=== PATIENT | male | born 1995 | race Two or more races ===

== ENCOUNTER 2023-05-25 04:49 | Emergency (ER) | payer MEDICAID ==
[~2023-05-25] VITALS: Ht 177.8 cm; Wt 81.8 kg
[2023-05-25 07:00] LABS: Basophils # (auto) 0.1 10 ^3/uL (0-0.2); Basophils % (auto) 1.1 % (0.0-2.0); Eosinophils # (auto) 0.3 10 ^3/uL (0-0.8); Eosinophils % (auto) 3.7 % (0.0-7.0); Hematocrit 39.2 % (41.0-53.0); Hemoglobin 13.1 g/dL (13.5-17.5); Lymphocytes # (auto) 2.7 10 ^3/uL (0.4-5.4); Mean Corpuscular Hemoglobin 30.1 pg (28.0-32.0); Mean Corpuscular Hgb Conc. 33.4 g/dL (32.0-36.0); Mean Corpuscular Volume 90.2 fL (80.0-100.0); Monocytes # (auto) 0.5 10 ^3/uL (0-1.3); Monocytes % (auto) 7.4 % (0.0-12.0); Neutrophils # (auto) 3.3 10 ^3/uL (1.6-8.6); Neutrophils % (auto) 48.8 % (37.0-80.0); Red Blood Cells 4.35 10^6/uL (4.5-5.90); Red Cell Distribution Width 13.8 % (11.8-14.3); White Blood Cell 6.8 10^3/uL (4.4-10.8)
[2023-05-25 07:23] LABS: Albumin 3.6 g/dL (3.4-5.0); Calcium 8.6 mg/dL (8.5-10.1); Potassium 4.5 mmol/L (3.5-5.1)
[2023-05-25 07:27] LABS: BUN/Creatinine Ratio 11.1 (10.0-20.0); Bilirubin, Total 0.4 mg/dL (0.2-1.0); Total Protein 7.4 g/dL (6.4-8.2)
[2023-05-25] MEDS ORDERED: IBU600T PO (08:07)
[2023-05-25 09:30] VITALS: BP 108/64
== END 2023-05-25 09:43 | disposition home or self-care (01) ==
LOC: ER 04:49
DX: M79.9 Soft tissue disorder, unspecified (principal)
CPT/HCPCS: 36415; 80053; 83880; 85025; 85379

== ENCOUNTER 2023-10-30 20:36 | Emergency (ER) | payer MEDICAID ==
[~2023-10-30] VITALS: Ht 177.8 cm; Wt 81.2 kg
[~2023-10-30 20:36] MED LIST: IBU600T PO
[2023-10-30 21:03] VITALS: BP 120/53; TEMP 97.7; O2SAT 97
[2023-10-31] MEDS ORDERED: HYDR-4902 PO (00:12)
[2023-10-31] MEDS ORDERED: HYDROcodone-ACET 5/325MG TAB PO ONE (00:15)
[2023-10-31 03:38] VITALS: PULSE 65; RESP 16
== END 2023-10-31 02:45 | disposition home or self-care (01) ==
LOC: ER 20:36
DX: S62.632A Displaced fracture of distal phalanx of right middle finger, initial encounter for closed fracture (principal); Z79.1 Long term (current) use of non-steroidal anti-inflammatories (NSAID); Z79.899 Other long term (current) drug therapy; W23.0XXA Caught, crushed, jammed, or pinched between moving objects, initial encounter; Y93.89 Activity, other specified; Y92.89 Other specified places as the place of occurrence of the external cause; Y99.8 Other external cause status
CPT/HCPCS: 29130; 73130

== ENCOUNTER 2025-01-14 21:55 | Emergency (ER) | payer MEDICAID, OTHER ==
[~2025-01-14] VITALS: Ht 175.3 cm; Wt 79.2 kg
[~2025-01-14 21:55] MED LIST changes: +HYDR-4902 PO
--- NOTE | 2025-01-15 00:11 | DVH ---
INDICATION: LOW BCK PAIN/INJURY COMPARISON: None TECHNIQUE: views of the lumbar spine were obtained. FINDINGS: There is normal alignment of the lumbar spine. The lumbar vertebral bodies are normal in appearance w ith no evidence of fracture. The intervertebral disc spaces are normal. Facet and SI joints appear un remarkable. IMPRESSION: No abnormality demonstrated.
[2025-01-15] MEDS: KETOROLAC TROMETH 60MG/2ML VIAL IM ONE (01:21)
[2025-01-15] MEDS: DexAMETHasone SOD PHOS 10MG/1ML VIAL INJ IM ONE (01:21)
[2025-01-15] MEDS ORDERED: TIZA-142 PO (01:39)
[2025-01-15] MEDS ORDERED: METH4PAK PO (01:39)
--- NOTE | 2025-01-15 01:41 | ED.PDOC ---
Back pain HPI HPI Comments Pt presents to the ER due to lower back pain x 1 1/2 weeks. Pt states he was lifting up bags of concrete and felt a strain in lower back. Pt reports taking Advil for pain last taken at 2100. Pt reports Advil relieves pain for short period of time but comes back. Pt ambulatory with steady gait. Denies numbness, weakness, saddle anesthesia, or loss of bowel or bladder control. Chief Complaint: Back Pain Time Seen by MD: 22:04 Primary Care Provider: n/a Reviewed Notes: Nurses Notes, Medications, Allergies Allergies: Coded Allergies: NO KNOWN ALLERGIES (Unverified , 05/25/23) Home Meds Active Scripts Hydrocodone-Acetaminophen (Hydrocodone Bitartrate/AC 5-325 mg) 1 Tab Tab, 1 TAB PO Q6HPRN PRN, #10 TAB as needed for pain Prov:OSUNAJAZMÍNZeny Q RN EMERGENCY 10/31/23 Ibuprofen Micronized (MOTRIN TABLET) 600 Mg Tb, 600 MG PO TID PRN for 5 Days, #15 TAB *Black box warning-NSAIDS can increase risk of MT & hypertension, GI irritation, ulceration, bleed, perferation. Do not use post cardiac surgery. Use short duration/lowest effective dose. Prov:MARYLIN CAMARGO MD 05/25/23 Information Source: Patient Mode of Arrival: Ambulatory Past Medical History PAST MEDICAL HISTORY: Denies Surgical History: Unknown Family History Family History: Reviewed,noncontributory to illness, Unknown Social History Smoker: Unknown Alcohol: Unknown Drugs: Unknown Lives In: Home Constitutional: denies: chills, diaphoresis, fatigue, fever, malaise, sweats, weakness, others EENTM: denies: blurred vision, double vision, ear bleeding, ear discharge, ear drainage, ear pain, ear ringing, eye pain, eye redness, hearing loss, mouth pain, mouth swelling, nasal discharge, nose bleeding, nose congestion, nose pain, photophobia, tearing, throat pain, throat swelling, voice changes, others Respiratory: denies: cough, hemoptysis, orthopnea, SOB at rest, shortness of breath, SOB with excertion, stridor, wheezing, others Cardiovascular: denies: chest pain, dizzy spells, diaphoresis, Dyspnea on exertion, edema, irregular heart beat, left arm pain, lightheadedness, palpitations, PND, syncope, others Gastrointestinal: denies: abdomen distended, abdominal pain, blood streaked bowels, constipated, diarrhea, dysphagia, difficulty swallowing, hematemesis, melena, nausea, poor appetite, poor fluid intake, rectal bleeding, rectal pain, vomiting, others Genitourinary: denies: burning, dysuria, flank pain, frequency, hematuria, incontinence, penile discharge, penile sore, pain, testicle pain, testicle swel ling, urgency, others Neurological: denies: dizziness, fainting, headache, left sided numbness, left sided weakness, numbness, paresthesia, pre-existing deficit, right sided numbness, right sided weakness, seizure, speech problems, tingling, tremors, weakness, others Musculoskeletal: reports: back pain; denies: gout, joint pain, joint swelling, muscle pain, muscle stiffness, neck pain, others Integumetry: denies: bruises, change in color, change in hair/nails, dryness, laceration, lesions, lumps, rash, wounds, others Allergic/Immunocompromised: denies: Difficulty Healing, Frequent Infections, Hives, Itching, others Hematologic/Lymphatic: denies: anemia, blood clots, easy bleeding, easy bruising, swollen glands, others Endocrine: denies: excessive hunger, excessive sweating, excessive thirst, excessive urination, flushing, intolerance to cold, intolerance to heat, unexplained weight gain, unexplained weight loss, others Psychiatric: denies: anxiety, bipolar disorder, depression, hopeless, panic disorder, schizophrenia, sleepless, suicidal, others Physical Exam General Appearance: No Apparent Distress, Normal HEENT: Pharynx Normal Neck: Full Range of Motion, Non-Tender Respiratory: Lungs Clear, No Respiratory Distress, Normal Breath Sounds Cardiovascular: No Murmur, Normal Peripheral Pulses, Regular Rate/Rhythm Breast Exam: Deferred Gastrointestinal: Non Tender, Soft Genitalia: Deferred Pelvic: Deferred Rectal: Deferred Extremities: Normal capillary refill, Normal inspection, Normal range of motion, Non-tender, No pedal edema Musculoskeletal : Location: Bilateral Extremity Location: Back (Moderate tenderness over L1 through L5 paraspinal muscles left greater than right side. No Noted Crepitus or step-offs L1 through L5. Negative straight leg raise test bilateral. Strength sensory and motion i ntact positive radial pulses distal) Apperance: Normal Neurologic: Alert, central office operator II-XII nml as Tested, No Motor Deficits, Normal Affect, Normal Mood, No Sensory Deficits Cerebellar Function: Normal Reflexes: Normal Skin: Dry, Normal Color, Warm Lymphatic: No Adenopathy Was a procedure done? Was a procedure done?: No Back Pain Differential Dx Differential Diagnosis: Fracture, Musculoskeletal Pain X-Ray, Labs, Meds, VS Vital Signs Date Time Temp Pulse Resp B/P (MAP) Pulse Ox O2 Delivery O2 Flow Rate FiO2 01/14/25 22:32 98.9 74 16 130/51 (77) 95 Current Medications Medications (Trade) Dose Ordered Sig/Dashawn Route Start Time Stop Time Status Last Admin Ketorolac Tromethamine (Toradol Injection) 60 mg ONCE ONCE IM 01/15/25 01:00 01/15/25 01:01 DC 01/15/25 01:21 Dexamethasone Sodium Phosphate (Decadron Injection) 10 mg ONCE ONCE IM 01/15/25 01:00 01/15/25 01:01 DC 01/15/25 01:21 X-Ray, Labs, Meds, VS Comment X-ray lumbar spine shows no acute fractures, subluxation, osseous lesions Patient was given Toradol 60 mg IM and Decadron 10 mg IM he reports pain 2/10 on pain scale states pain is better James discharge at this time and is requesting discharge at this time. Advised to rest discussed alternating between ice and heat. Follow up with your PCP in 1-2 days consider further imaging such as MRI or referral to physical therapy. Take medications as prescribed side effects discussed. ER return precautions given for increasing pain, weakness, numbness, saddle anesthesia, or loss of bowel bladder control. Patient indicates understanding and agrees with discharge plan of care. Time of 1ST Reevaluation: 01:39 Reevaluation 1ST: Improved Patient Education/Counseling: Diagnosis, Treatment, Prognosis, Need For Follow Up Family Education/Counseling: No Family Present Departure 1 Departure Time of Disposition: 01:38 Impression: Primary Impression: Lumbar sprain Qualified Codes: S33.5XXA - Sprain of ligaments of lumbar spine, initial encounter Disposition: HOME / SELF CARE / HOMELESS Condition: Stable e-Prescriptions Tizanidine Hydrochloride (Tizanidine Hcl) 4 Mg Tab 4 MG PO BID PRN for 4 Days, #8 TAB Prov: CHAITANYA ELKINS DEBT AND BUDGET COUNSELOR 01/15/25 Methylprednisolone (Medrol Dosepak) 4 Mg Esa 4 MG PO UD for 6 Days, #21 TAB UAD Prov: CHAITANYA ELKINS 01/15/25 Discharged With: Self Critical Care Note Critical Care Time?: No Stability Stability form required: CHAITANYA Wilson Jan 15, 2025 01:41
[2025-01-15 01:53] VITALS: BP 108/62; PULSE 70; RESP 18; TEMP 98.4; O2SAT 95
== END 2025-01-15 01:57 | disposition home or self-care (01) ==
LOC: ER 21:55
DX: S33.5XXA Sprain of ligaments of lumbar spine, initial encounter (principal); X50.0XXA Overexertion from strenuous movement or load, initial encounter; Y93.89 Activity, other specified; Y92.89 Other specified places as the place of occurrence of the external cause; Y99.8 Other external cause status
CPT/HCPCS: 72100; 96372; 99284; J1100; J1885

== ENCOUNTER 2025-01-20 10:30 | Inpatient (IN) | payer OTHER ==
[~2025-01-20] VITALS: Ht 172.7 cm; Wt 80.0 kg
[~2025-01-20 10:30] MED LIST changes: +METH4PAK PO; +TIZA-142 PO
[2025-01-20 11:00] LABS: Urine Bacteria None Seen /hpf (None Seen)
[2025-01-20 11:07] LABS: Urine Blood TRACE /uL (Negative); Urine Clarity Clear (Clear); Urine Color Yellow (Yellow); Urine Protein, UAD TRACE (Negative); Urine Specific Gravity 1.032 (1.001-1.035); Urine Squamous Epithelial Cell FEW /hpf (<5); Urine Urobilinogen 2 mg/dL (Negative); Urine WBC 1 /HPF (0-3)
[2025-01-20 11:26] VITALS: PULSE 77; RESP 18; O2SAT 97
[2025-01-20 11:31] LABS: Amphetamine Screen, Urine Neg (NEGATIVE); Barbiturate Scree,Urine Neg (NEGATIVE); Benzodiazephine Screen, Urine Neg (NEGATIVE); Cannabinoid Screen, Urine Neg (NEGATIVE); Cocaine Screen, Urine Neg (NEGATIVE); Opiate Scree,Urine Neg (NEGATIVE); Phencyclidine Screen, Urine Neg (NEGATIVE)
[2025-01-20 11:42] LABS: Hematocrit 40.1 % (41.0-53.0); Hemoglobin 13.3 g/dL (13.5-17.5); Mean Corpuscular Hgb Conc. 33.1 g/dL (32.0-36.0); Mean Corpuscular Volume 84.5 fL (80.0-100.0); Platelet Count (auto) 278 10^3/uL (140-450); Red Blood Cells 4.74 10^6/uL (4.5-5.90); Red Cell Distribution Width 13.4 % (11.8-14.3); White Blood Cell 15.6 10^3/uL (4.4-10.8)
[2025-01-20 11:45] LABS: Anion Gap 7 (5-15); Aspartate Aminotransferase 20 U/L (13-40); BUN/Creatinine Ratio 15.7 (10.0-20.0); Blood Urea Nitrogen 13 mg/dL (9-23); Calcium 9.7 mg/dL (8.7-10.4); Carbon Dioxide 30 mmol/L (20-31); Chloride 101 mmol/L (98-107); Glucose 85 mg/dL (74-106); Potassium 3.6 mmol/L (3.5-5.1); Sodium 138 mmol/L (136-145)
[2025-01-20 11:46] LABS: Alanine Aminotransferase 83 U/L (7-40); Albumin 5.1 g/dL (3.2-4.8); Alkaline Phosphatase 751 U/L (46-116); Basophils % (manual) 0 (0.0-2.0); Bilirubin, Total 0.3 mg/dL (0.2-1.0); Blast Cells 0; Metamyelocytes % 0; Myelocytes % 0; Promyelocytes % 0; Total Protein 8.5 g/dL (5.7-8.2)
--- NOTE | 2025-01-20 12:25 | DVH ---
Box Exam: CT CT AB PEL WO CON-NO ORAL OR IV History: B/L flank pain Comparison Study: None available at time of dictation. Technique: Multidetector spiral CT of the abdomen and pelvis was performed from lung bases to pubic s ymphysis. Imaging was performed without intravenous contrast. Coronal and sagittal multiplanar reform ats were obtained from the axial data set by the technologist. Radiation Dose : 1. Abdomen/Pelvis: CTDIvol 6.93 mGy, DLP 342.01 mGy*cm. Findings: Evaluation of vasculature and solid organs is limited due to lack of intravenous contrast use. Lung Bases: Lung bases are clear. Visualized portions of the heart and pericardium are unremarkable. Liver: The liver is normal in size. No focal lesions. Gallbladder and Biliary Tree: The gallbladder is unremarkable. No intrahepatic or extrahepatic bilia ry ductal dilatation. Spleen: Unremarkable Pancreas: Pancreas appears slightly enlarged. There is retroperitoneal fat stranding. Adrenal Glands: Unremarkable Kidneys: Kidneys are unremarkable without calculi or hydronephrosis. GI tract: The stomach is grossly normal in appearance. No evidence of small bowel wall thickening or abnormal dilatation to suggest bowel obstruction. The colon is unremarkable. The appendix is not visu alized, however no inflammatory changes in the right lower quadrant to suggest acute appendicitis. Peritoneum/mesentery/retroperitoneum. No evidence of free intraperitoneal air. No ascites. Lymph nodes: Increased number of retroperitoneal lymph nodes which are not enlarged. Abdominal Wall: Unremarkable. Vasculature: The visualized abdominal aorta is normal in size and caliber. Evaluation of abdominal a nd pelvic vessels is limited due to lack of intravenous contrast. Urinary Bladder: Grossly unremarkable for degree of distention. Pelvic Organs: Unremarkable Musculoskeletal: Innumerable lytic lesions throughout the spine. Innumerable sclerotic lesions in the bony pelvis. No acute fracture. IMPRESSION: 1. Pancreas appears somewhat enlarged and there is retroperitoneal fat stranding. Acute pancreatitis should be considered in the appropriate clinical setting. Correlation with laboratory values recomme nded. 2. Innumerable lytic and sclerotic lesions throughout the lumbar spine and the bony pelvis, concernin g for metastatic disease. If there is no known cancer history, CT of the chest, abdomen and pelvis wi th intravenous and oral contrast is recommended for further evaluation.
--- NOTE | 2025-01-20 12:40 | ED.PDOC ---
Back pain HPI HPI Comments HPI: Poor Historian. HPI: 29-year-old male presents with a chief complaint of back pain. Patient states that his pain is localized to his lower back region (lumbar) and states that his pain hurts to the point where he bends forward and hurts to stand up. Patient states that he has been lifting heavy sandbags at home and believes that is how he injured his back. Patient also is reporting that it is difficult for him to urinate and has some discomfort to his genitalia. Patient reports taking Advil for the pain with minimal relief. Past Medical History: DENIES Past Surgical History: APPENDECTOMY Social History: DENIES Medications: ADVIL FOR PAIN Allergies: NKDA REVIEW OF SYSTEMS: CONSTITUTIONAL: Denies acute: fever, diaphoresis, chills, generalized weakness. HEAD: Denies acute: headache, photophobia Eyes: Denies acute: Double vision, vision loss, eye pain, eye discharge. EARS: Denies acute: tinnitus, hearing loss, ear discharge, ear pain, THROAT: Denies acute: sore throat, swelling, difficulty swallowing , pain with swallowing, change in voice. NECK: Denies acute: neck pain, neck swelling, stiff neck. HEART: Denies acute : chest pain, palpitations, LUNGS: Denies acute: SOB, wheezing, cough, hemoptysis ABDOMEN: Denies acute: abdominal pain, Nausea, Vomiting, diarrhea, melena , hematemesis, hematochezia SKIN: Denies acute: rash, redness, lesions, itchiness. EXTREMITIES: Denies acute: calf pain, weakness, denies pain in extremity. Neuro: Denies acute: focal neurological deficit, motor or sensory focal neurological deficit, tremors, seizure like activity, confusion, dizziness, change in mental status, loss of bowel or bladder function : Denies acute: dysuria, hematuria, flank pain, increase in urinary frequency. PSYCH: Denies acute: hallucination, suicidal ideation, homicidal ideation. PHYSICAL EXAM: General: no acute distress, awake and alert. Head: normocephalic, atraumatic. Neck: supple, trachea is midline, no swelling. Throat: Normal phonation. Eyes:, no erythema, no purulent discharge, no proptosis, no icterus. Heart: regular rate, regular rhythm, no significant murmur appreciated. Lungs: no apparent respiratory distress, Able to speak in full sentences. No wheezing, no rhonchi, no crackles. No stridors Clear to auscultation bilaterally. Abdomen: non tender to palpation, non distended, soft, no guarding, no rebound, + bowel sounds. Neuro: Awake, Alert, oriented to name, self, situation, follows commands GCS=15. Speech is normal. Skin: no petechia, no purpura, no cyanosis, non-pale, not jaundice. Lower extremities: --no - Pitting edema no deformity, no focal swelling, no calf TTP. Makes eye contact. moves all four extremities. Patient is able to raise bilateral lower extremity against resistance and hold it. Evaluation of the area of pain. Patient points to his lumbosacral region radiating to bilateral lumbosacral iliac crest region. No flank pain. Face: no apparent facial droop. No CVA tenderness to percussion bilaterally. Ambulating in the ED independently. ED COURSE: Chief Complaint: Flank Pain Time Seen by MD: 12:15 Primary Care Provider: n/a Reviewed Notes: Nurses Notes, Medications, Allergies Allergies: Coded Allergies: NO KNOWN ALLERGIES (Unverified , 05/25/23) Home Meds Active Scripts Methylprednisolone (Medrol Dosepak) 4 Mg Eas, 4 MG PO UD for 6 Days, #21 TAB UAD Prov:CHAITANYA ELKINS TOBACCO ROLLER 01/15/25 Hydrocodone-Acetaminophen (Hydrocodone Bitartrate/AC 5-325 mg) 1 Tab Tab, 1 TAB PO Q6HPRN PRN, #10 TAB as needed for pain Prov:NAHUM OSUNA Q POWDER WORKER 10/31/23 Ibuprofen Micronized (MOTRIN TABLET) 600 Mg Tb, 600 MG PO TID PRN for 5 Days, #15 TAB *Black box warning-NSAIDS can increase risk of LA & hypertension, GI irritation, ulceration, bleed, perferation. Do not use post cardiac surgery. Use short duration/lowest effective dose. Prov:MARYLIN CAMARGO MD 05/25/23 Discontinued Scripts Tizanidine Hydrochloride (Tizanidine Hcl) 4 Mg Tab, 4 MG PO BID PRN for 4 Days, #8 TAB Prov:CHAITANYA ELKINS TOBACCO ROLLER 01/15/25 Information Source: Patient Mode of Arrival: Ambulatory Past Medical History PAST MEDICAL HISTORY: Denies Surgical History: Appendectomy Family History Family History: Reviewed,noncontributory to illness, Unknown Social History Smoker: Non-Smoker Alcohol: Denies ETOH Use Drugs: Denies Drug Use Lives In: Home Was a procedure done? Was a procedure done?: No Back Pain Differential Dx Differential Diagnosis: Other (DDX included but not limited to Cauda Equina syndrome, lumbar radiculopathy, arthritis, disk herniation, sciatica, muscle strain, epidural abscess, transverse myelitis. Cord compression, spinal foraminal stenosis, spinal fractures, spondylosis, central canal stenosis, trauma, muscle sprain/strain, aneurysm/dissection, kidney stones, shingles, arthritis, Guillan Hartman, neoplasm.) X-Ray, Labs, Meds, VS Vital Signs Date Time Temp Pulse Resp B/P (MAP) Pulse Ox O2 Delivery O2 Flow Rate FiO2 01/20/25 18:02 98.1 81 20 93/50 (64) 97 98.1 01/20/25 15:52 97.6 64 20 118/67 (84) 98 97.6 01/20/25 15:03 79 17 98 Room Air 01/20/25 15:03 98.2 79 17 108/60 (76) 98 98.2 01/20/25 13:25 78 16 127/67 (87) 99 01/20/25 11:26 77 18 97 Room Air* 0 21 01/20/25 11:25 97.4 77 18 123/68 (86) 97 97.4 01/20/25 10:45 98.1 83 20 141/65 (90) 98 Lab Test 01/20/25 11:13 01/20/25 10:58 Range/Units White Blood Count 15.6 H 4.4-10.8 10^3/uL Red Blood Count 4.74 4.5-5.90 10^6/uL Hemoglobin 13.3 L 13.5-17.5 g/dL Hematocrit 40.1 L 41.0-53.0 % Mean Corpuscular Volume 84.5 80.0-100.0 fL Mean Corpuscular Hemoglobin 28.0 28.0-32.0 pg Mean Corpuscular Hemoglobin Concent 33.1 32.0-36.0 g/dL Red Cell Distribution Width 13.4 11.8-14.3 % Platelet Count 278 140-450 10^3/uL Mean Platelet Volume 7.0 6.9-10.8 fL Neutrophils (%) (Auto) 37.0-80.0 % Lymphocytes (%) (Auto) 10.0-50.0 % Monocytes (%) (Auto) 0.0-12.0 % Basophils (%) (Auto) 0.0-2.0 % Neutrophils # (Auto) 1.6-8.6 10 ^3/uL Lymphocytes # (Auto) 0.4-5.4 10 ^3/uL Monocytes # (Auto) 0-1.3 10 ^3/uL Differential Total Cells Counted 100.0 100 Neutrophils % (Manual) 56 37.0-80.0 Band Neutrophils % (Manual) 4 Lymphocytes % (Manual) 25 10.0-50.0 Monocytes % (Manual) 9 0-12 Eosinophils % (Manual) 2 0-7 Basophils % (Manual) 0 0.0-2.0 Metamyelocytes % (manual) 0 Myelocytes % (Manual) 0 Promyelocytes % (Manual) 0 Blast Cells % (Manual) 0 Reactive Lymphocytes 4 Platelet Estimate Adequate Red Blood Cell Morphology Normal Sodium Level 138 136-145 mmol/L Potassium Level 3.6 3.5-5.1 mmol/L Chloride Level 101 98-107 mmol/L Carbon Dioxide Level 30 20-31 mmol/L Anion Gap 7 5-15 Blood Urea Nitrogen 13 9-23 mg/dL Creatinine 0.83 0.700-1.30 mg/dL Glomerular Filtration Rate Calc 120 >90 mL/min BUN/Creatinine Ratio 15.7 10.0-20.0 Serum Glucose 85 74-106 mg/dL Lactic Acid Level 1.1 0.4-2.0 mmol/L Calcium Level 9.7 8.7-10.4 mg/dL Total Bilirubin 0.3 0.2-1.0 mg/dL Aspartate Amino Transferase (AST) 20 13-40 U/L Alanine Aminotransferase (ALT) 83 H 7-40 U/L Alkaline Phosphatase 751 H 46-116 U/L Creatine Kinase 51 46-171 U/L Total Protein 8.5 H 5.7-8.2 g/dL Albumin 5.1 H 3.2-4.8 g/dL Lipase 224 H 12-53 U/L Urine Color Yellow Yellow Urine Clarity Clear Clear Urine pH 6.0 5.0-9.0 Urine Specific [place] 1.032 1.001-1.035 Urine Protein Trace H Negative Urine Ketones Trace Negative Urine Blood Trace H Negative /uL Urine Nitrite Negative Negative Urine Bilirubin Negative Negative Urine Urobilinogen 2 H Negative mg/dL Urine Leukocyte Esterase Negative Negative /uL Urine RBC 2 0 - 3 /hpf Urine Microscopic WBC 1 0-3 /HPF Urine Squamous Epithelial Cells Few <5 /hpf Urine Bacteria None seen None Seen /hpf Urine Glucose Normal Normal mg/dL Urine Opiates Screen Neg NEGATIVE Urine Fentanyl Screen Neg NEGATIVE Urine Barbiturates Screen Neg NEGATIVE Urine Phencyclidine Screen Neg NEGATIVE Urine Amphetamines Screen Neg NEGATIVE Urine Benzodiazepines Screen Neg NEGATIVE Urine Cocaine Screen Neg NEGATIVE Urine Cannabinoids Screen Neg NEGATIVE Current Medications Medications (Trade) Dose Ordered Sig/Dashawn Route Start Time Stop Time Status Last Admin Acetaminophen/ Hydrocodone Bitart ([place] 5/325MG Tab) 1 tab ONCE ONCE PO 01/20/25 12:45 01/20/25 12:46 DC 01/20/25 13:07 Piperacillin Sod/ Tazobactam Sod 100 ml @ 100 mls/hr ONCE ONCE IV 01/20/25 14:30 01/20/25 15:29 DC 01/20/25 15:20 Sodium Chloride 1,000 ml @ 1,000 mls/hr Q1H ONCE IV 01/20/25 14:30 01/20/25 15:29 DC 01/20/25 15:20 [place] [id number] Ph: [phone] DIAGNOSTIC IMAGING Diagnostic Imaging Report : [id number] Signed PATIENT: KAMARI HENLEYCCT: [id number] UNIT: [id number] : 1995 LOC: ER ROOM / BED: / AGE / SEX: 29 / M ADM STATUS: REG ER SERVICE 1052 ORDERING PHYSICIAN: SAMEER UMANA DO PROCEDURE(s): ABPL - CT AB PEL WO CON-NO ORAL OR IV REASON: B/L flank pain ORDER NUMBER(s): [id number], ACCESSION NUMBER(s): [id number] Box Exam: CT CT AB PEL WO CON-NO ORAL OR IV History: B/L flank pain Comparison Study: None available at time of dictation. Technique: Multidetector spiral CT of the abdomen and pelvis was performed from lung bases to pubic symphysis. Imaging was performed without intravenous contrast. Coronal and sagittal multiplanar reformats were obtained from the axial data set by the technologist. Radiation Dose : 1. Abdomen/Pelvis: CTDIvol 6.93 mGy, DLP 342.01 mGy*cm. Findings: Evaluation of vasculature and solid organs is limited due to lack of intravenous contrast use. Lung Bases: Lung bases are clear. Visualized portions of the heart and pericardium are unremarkable. Liver: The liver is normal in size. No focal lesions. Gallbladder and Biliary Tree: The gallbladder is unremarkable. No intrahepatic or extrahepatic biliary ductal dilatation. Spleen: Unremarkable Pancreas: Pancreas appears slightly enlarged. There is retroperitoneal fat stranding. Adrenal Glands: Unremarkable Kidneys: Kidneys are unremarkable without calculi or hydronephrosis. GI tract: The stomach is grossly normal in appearance. No evidence of small bowel wall thickening or abnormal dilatation to suggest bowel obstruction. The colon is unremarkable. The appendix is not visualized, however no inflammatory changes in the right lower quadrant to suggest acute appendicitis. Peritoneum/mesentery/retroperitoneum. No evidence of free intraperitoneal air. No ascites. Lymph nodes: Increased number of retroperitoneal lymph nodes which are not enlarged. Abdominal Wall: Unremarkable. Vasculature: The visualized abdominal aorta is normal in size and caliber. Evaluation of abdominal and pelvic vessels is limited due to lack of intravenous contrast. Urinary Bladder: Grossly unremarkable for degree of distention. Pelvic Organs: Unremarkable Musculoskeletal: Innumerable lytic lesions throughout the spine. Innumerable sclerotic lesions in the bony pelvis. No acute fracture. IMPRESSION: 1. Pancreas appears somewhat enlarged and there is retroperitoneal fat stranding. Acute pancreatitis should be considered in the appropriate clinical setting. Correlation with laboratory values recommended. 2. Innumerable lytic and sclerotic lesions throughout the lumbar spine and the bony pelvis, concerning for metastatic disease. If there is no known cancer history, CT of the chest, abdomen and pelvis with intravenous and oral contrast is recommended for further evaluation. ATED BY: SAMUEL HERNANDEZ MD DICTATED DATE/TIME: 01/20/25 1223 SIGNED BY: SAMUEL HERNANDEZ MD SIGNED DATE/TIME: 01/20/25 1223 Time of 1ST Reevaluation: 12:45 Reevaluation 1ST: Unchanged Patient Education/Counseling: Diagnosis, Treatment Family Education/Counseling: Diagnosis, Treatment Comments Patient presented with the above HPI.--low back pain----workup was initiated. patient was found with the above mentioned diagnosis. the following medications were ordered: please refer to order lists of meds and tests obtained by myself Dr. Umana. Patient ED course and VS have been stabilized. Patient has been reassessed in the ED and remained in a stable condition. Pertinent incidental findings were discussed with the patient and/or family. Patient/family voices understanding and is agreeable with plan. Patient has been observed in the ED adequate length of time to insure improvement/stability. Escalation of care considered: Consideration of escalation to observation or admission Patient was ADMITTED to the medicine team for further evaluation and treatment of their presentation. All the reports of any imaging studies that were ordered by myself were reviewed by myself. Departure 1 Departure Time of Disposition: 12:43 Impression: Primary Impression: Metastatic disease Additional Impressions: Low back pain Acute pancreatitis Disposition: ADMITTED INPATIENT Admit to: Tele Condition: Guarded Discharged With: Self Critical Care Note Critical Care Time?: Yes (1 hr-critical care time only) I personally scribed for SAMEER UMANA DO ([email or web address]) on 01/20/25 at 12:40. Electronically submitted by Edwin Arzola ([email or web address]). I personally scribed for SAMEER UMANA DO ([email or web address]) on 01/20/25 at 12:46. Electronically submitted by Edwin Arzola ([email or web address]). SAMEER UMANA DO Jan 20, 2025 12:40
[2025-01-20 12:42] LABS: Band Neutrophils % (manual) 4; Eosinophils % (manual) 2 (0-7); Lymphocytes % (manual) 25 (10.0-50.0); Monocytes % (manual) 9 (0-12); Platelet Estimate Adequate; RBC Morphology Normal; Reactive Lymphocytes 4
[2025-01-20] MEDS: HYDROcodone-ACET 5/325MG TAB PO ONE ×2 (13:07→18:37)
[2025-01-20 13:15] LABS: Lipase 224 U/L (12-53)
[2025-01-20 13:16] LABS: Creatine Kinase IFCC 51 U/L (46-171)
[2025-01-20] MEDS: SODIUM CHLORIDE 0.9% 1,000 ML IV ONE ×2 (15:20→18:26)
[2025-01-20] MEDS: PIPERACILLIN-TAZOB 3.375GM 100 ML IV ONE (15:20)
--- NOTE | 2025-01-20 21:23 | DVHHP2 ---
History of Present Illness Reason for Visit: Acute pancreatitis History of Present Illness The patient is a 29-year-old male with past medical history of appendicitis who presented to [facility] ED with complaint of back pain. Patient reports symptoms progressively get worse with radiating pain to the abdomen, loc alized lower back pain rating 9/10 numeric scale, getting worse that prompted this visit. Patient was and evaluated in the ED, laboratory data shows elevated WBC 15.6, platelets 278, sodium 138, potassium 3.6, BUN 13, creatinine 0.83, GFR 120, glucose 85, protein 8.5, BUN 5.1, AST 20, ALT 83, lipase 224. Abdomen/pelvis CT revealing pancreas appears somewhat enlarged and there is re troperitoneal fat trending; acute pancreatitis should be considered in the appropriate clinical setting. Please see medication orders section in the computer. On my assessment, patient denied chest pain, no headache, dizziness, no shortness of breath, no diarrhea, no nausea, no vomiting, no fever, no chills. Patient was admitted for further evaluation and medical management. Past Medical History Appendicitis Past Surgical History Appendectomy Family History Reviewed, noncontributory to the management of this case. Past Social History The patient lives at home, denies smoking, alcohol or illicit drugs abuse. Review of Systems Constitutional: No: Fever, Chills, Sweats, Weakness, Malaise, Other Eyes: No: Pain, Vision change, Conjunctivae inflammation, Eyelid inflammation, Other, Redness ENT: No: Ear pain, Ear discharge, Nose pain, Nose discharge, Nose congestion, Mouth pain, Mouth swelling, Throat pain, Throat swelling, Other Respiratory: No: Cough, Dry, Shortness of breath, SOB with excertion, Wheezing, Hemoptysis, Pleuritic Pain, Sputum, Wheezing, Other Cardiovascular: No: Chest Pain, Palpitations, Orthopnea, Paroxysmal Noc. Dyspnea, Edema, Lt Headedness, Other Gastrointestinal: Abdominal Pain; No: Nausea, Vomiting, Diarrhea, Constipation, Melena, Hematochezia, Other Genitourinary: No Dysuria, No Frequency, No Incontinence, No Hematuria, No Retention, No Other Musculoskeletal: No: other, neck pain, shoulder pain, arm pain, back pain, hand pain, leg pain, foot pain Skin: No: Rash, Lesions, Jaundice, Bruising, Other Neurological: No: Weakness, Numbness, Incoordination, Change in speech, Confusion, Seizures, Other Allergies: Coded Allergies: NO KNOWN ALLERGIES (Unverified , 05/25/23) Exam Vital Signs Vital Signs Date Time Temp Pulse Resp B/P (MAP) Pulse Ox O2 Delivery O2 Flow Rate FiO2 01/20/25 18:02 98.1 81 20 93/50 (64) 97 98.1 01/20/25 15:03 Room Air 01/20/25 11:26 0 21 General Appearance: Alert, Oriented X3, Cooperative, No acute distress HEENT: Atraumatic, PERRLA, EOMI, Mucous membr. moist/pink Respiratory: Clear to auscultation, Normal air movement Cardiovascular: Regular rate, Normal S1, Normal S2, No murmurs Abdominal: Normal bowel sounds, Soft, No hepatospenomegaly, No masses, Other (Reports tenderness) Extremities: No clubbing, No cyanosis, No edema, Normal pulses, No tenderness/swelling Skin: No rashes, No breakdown, No significant lesion Neuro: Normal gait, Normal speech, Strength at 5/5 X4 ext, Normal tone, Se nsation intact, Cranial nerves 3-12 NL, Reflexes 2+ Psych/Mental Status: Mental status NL, Mood NL Labs/Xrays Labs Test 01/20/25 11:13 01/20/25 10:58 Range/Units White Blood Count 15.6 H 4.4-10.8 10^3/uL Red Blood Count 4.74 4.5-5.90 10^6/uL Hemoglobin 13.3 L 13.5-17.5 g/dL Hematocrit 40.1 L 41.0-53.0 % Mean Corpuscular Volume 84.5 80.0-100.0 fL Mean Corpuscular Hemoglobin 28.0 28.0-32.0 pg Mean Corpuscular Hemoglobin Concent 33.1 32.0-36.0 g/dL Red Cell Distribution Width 13.4 11.8-14.3 % Platelet Count 278 140-450 10^3/uL Mean Platelet Volume 7.0 6.9-10.8 fL Neutrophils (%) (Auto) 37.0-80.0 % Lymphocytes (%) (Auto) 10.0-50.0 % Monocytes (%) (Auto) 0.0-12.0 % Basophils (%) (Auto) 0.0-2.0 % Neutrophils # (Auto) 1.6-8.6 10 ^3/uL Lymphocytes # (Auto) 0.4-5.4 10 ^3/uL Monocytes # (Auto) 0-1.3 10 ^3/uL Differential Total Cells Counted 100.0 100 Neutrophils % (Manual) 56 37.0-80.0 Band Neutrophils % (Manual) 4 Lymphocytes % (Manual) 25 10.0-50.0 Monocytes % (Manual) 9 0-12 Eosinophils % (Manual) 2 0-7 Basophils % (Manual) 0 0.0-2.0 Metamyelocytes % (manual) 0 Myelocytes % (Manual) 0 Promyelocytes % (Manual) 0 Blast Cells % (Manual) 0 Reactive Lymphocytes 4 Platelet Estimate Adequate Red Blood Cell Morphology Normal Sodium Level 138 136-145 mmol/L Potassium Level 3.6 3.5-5.1 mmol/L Chloride Level 101 98-107 mmol/L Carbon Dioxide Level 30 20-31 mmol/L Anion Gap 7 5-15 Blood Urea Nitrogen 13 9-23 mg/dL Creatinine 0.83 0.700-1.30 mg/dL Glomerular Filtration Rate Calc 120 >90 mL/min BUN/Creatinine Ratio 15.7 10.0-20.0 Serum Glucose 85 74-106 mg/dL Lactic Acid Level 1.1 0.4-2.0 mmol/L Calcium Level 9.7 8.7-10.4 mg/dL Total Bilirubin 0.3 0.2-1.0 mg/dL Aspartate Amino Transferase (AST) 20 13-40 U/L Alanine Aminotransferase (ALT) 83 H 7-40 U/L Alkaline Phosphatase 751 H 46-116 U/L Creatine Kinase 51 46-171 U/L Total Protein 8.5 H 5.7-8.2 g/dL Albumin 5.1 H 3.2-4.8 g/dL Lipase 224 H 12-53 U/L Urine Color Yellow Yellow Urine Clarity Clear Clear Urine pH 6.0 5.0-9.0 Urine Specific [place] 1.032 1.001-1.035 Urine Protein Trace H Negative Urine Ketones Trace Negative Urine Blood Trace H Negative /uL Urine Nitrite Negative Negative Urine Bilirubin Negative Negative Urine Urobilinogen 2 H Negative mg/dL Urine Leukocyte Esterase Negative Negative /uL Urine RBC 2 0 - 3 /hpf Urine Microscopic WBC 1 0-3 /HPF Urine Squamous Epithelial Cells Few <5 /hpf Urine Bacteria None seen None Seen /hpf Urine Glucose Normal Normal mg/dL Urine Opiates Screen Neg NEGATIVE Urine Fentanyl Screen Neg NEGATIVE Urine Barbiturates Screen Neg NEGATIVE Urine Phencyclidine Screen Neg NEGATIVE Urine Amphetamines Screen Neg NEGATIVE Urine Benzodiazepines Screen Neg NEGATIVE Urine Cocaine Screen Neg NEGATIVE Urine Cannabinoids Screen Neg NEGATIVE PATIENT: KAMARI HENLEYCCT: [id number] UNIT: [id number] : 1995 LOC: ER ROOM / BED: / AGE / SEX: 29 / M ADM STATUS: REG ER SERVICE 1052 ORDERING PHYSICIAN: SAMEER UMANA DO PROCEDURE(s): ABPL - CT AB PEL WO CON-NO ORAL OR IV REASON: B/L flank pain ORDER NUMBER(s): [id number], ACCESSION NUMBER(s): [id number] Box Exam: CT CT AB PEL WO CON-NO ORAL OR IV History: B/L flank pain Comparison Study: None available at time of dictation. Technique: Multidetector spiral CT of the abdomen and pelvis was performed from lung bases to pubic symphysis. Imaging was performed without intravenous contrast. Coronal and sagittal multiplanar reformats were obtained from the axial data set by the technologist. Radiation Dose: 1. Abdomen/Pelvis: CTDIvol 6.93 mGy, DLP 342.01 mGy*cm. Findings: Evaluation of vasculature and solid organs is limited due to lack of intravenous contrast use. Lung Bases: Lung bases are clear. Visualized portions of the heart and per icardium are unremarkable. Liver: The liver is normal in size. No focal lesions. Gallbladder and Biliary Tree: The gallbladder is unremarkable. No intrahepatic or extrahepatic biliary ductal dilatation. Spleen: Unremarkable Pancreas: Pancreas appears slightly enlarged. There is retroperitoneal fat stranding. Adrenal Glands: Unremarkable Kidneys: Kidneys are unremarkable without calculi or hydronephrosis. GI tract: The stomach is grossly normal in appearance. No evidence of small bowel wall thickening or abnormal dilatation to suggest bowel obstruction. The colon is unremarkable. The appendix is not visualized, however no inflammatory changes in the right lower quadrant to suggest acute appendicitis. Peritoneum/mesentery/retroperitoneum. No evidence of free intraperitoneal air. No ascites. Lymph nodes: Increased number of retroperitoneal lymph nodes which are not enlarged. Abdominal Wall: Unremarkable. Vasculature: The visualized abdominal aorta is normal in size and caliber. Evaluation of abdominal and pelvic vessels is limited due to lack of intravenous contrast. Urinary Bladder: Grossly unremarkable for degree of distention. Pelvic Organs: Unremarkable Musculoskeletal: Innumerable lytic lesions throughout the spine. Innumerable sclerotic lesions in the bony pelvis. No acute fracture. IMPRESSION: 1. Pancreas appears somewhat enlarged and there is retroperitoneal fat strandi ng. Acute pancreatitis should be considered in the appropriate clinical setting. Correlation with laboratory values recommended. 2. Innumerable lytic and sclerotic lesions throughout the lumbar spine and the bony pelvis, concerning for metastatic disease. If there is no known cancer history, CT of the chest, abdomen and pelvis with intravenous and oral contrast is recommended for further evaluation. Assessment/Plan Assessment/Plan Acute pancreatitis Metastatic disease Low back pain Leukocytosis, unspecified Generalized weakness Plan 1. Admit to Med-Surg unit 2. Breathing treatment 3. Pain control management 4. IV antibiotic management 5. Management of fluids and electrolytes 6. Consultation for hospitalist 7. Diagnostic test abdomen/pelvis CT 8. DVT prophylaxis-on SCDs 9. Repeat labs CBC, CMP in a.m. 10. Home medication reviewed and reconciled 11. Continue with current medical management 12. Treatment plan discussed with patient and RN. Patient verbalized vikki giordano. Plan discussed with: Patient, Other (RN) My Orders Orders - BRIANNA MARTINEZ DNP Procedure Category Date Status Time Zosyn Extended PHA 01/20/25 Transmitted Infusion 22:00 Admit ADMIT 01/20/25 Transmitted 21:21 Allergies OZZY 01/20/25 Transmitted 21:21 Code Status CODE 01/20/25 Transmitted 21:21 0.9% Ns 1000 Ml PHA 01/20/25 Transmitted 21:30 Oxygen Per Hour RT 01/20/25 Transmitted 21:21 Hydrocodone-Acet PHA 01/20/25 Transmitted 5/325mg Tab (Faxon 21:30 Ondansetron Hcl PHA 01/20/25 Transmitted (Zofran) 21:30 Docusate Sodium PHA 01/20/25 Transmitted Capsule (Colace 21:30 Complete Blood Count LAB 01/21/25 Verified 04:00 Comprehensive LAB 01/21/25 Verified Metabolic Panel 04:00 Condition: Serious OZZY 01/20/25 Transmitted 21:21 Acetaminophen Tablet PHA 01/20/25 Transmitted (Tylenol Tablet) 21:30 Clear Liq Diet DIET 01/21/25 Transmitted Breakfast Bedrest With Bathroom OZZY 01/20/25 Transmitted Privileg 21:21 Morphine Sulfate PHA 01/20/25 Transmitted Injection 21:30 Sequential OZZY 01/20/25 Transmitted Compression Device Nitroglycerin PHA 01/20/25 Transmitted Sublingual (Ntrostat 21:30 Morphine Sulfate PHA 01/20/25 Transmitted Injection 21:30 Notify Md Of Changes [facility] 01/20/25 Transmitted From Base 21:21 [place] For [facility] 01/20/25 Transmitted 24 Hours 21:21 Emergency Dysrhythmia [facility] 01/20/25 Transmitted Protocol 21:21 Oxygen By Nasal RT 01/20/25 Transmitted Cannula 21:21 Problem List: (1) Acute pancreatitis (2) Metastatic disease (3) Low back pain (4) Leukocytosis, unspecified (5) Generalized weakness Date of Service: Jan 20, 2025 Billing Provider: BRIANNA MARTINEZ DNP Common Visit Codes: [id number] INP/OBS CARE (HIGH) BRIANNA MARTINEZ DNP Jan 20, 2025 21:23
[2025-01-20] MEDS ORDERED: ONDANSETRON HCL 4 MG/2 ML VIAL IV PRN (21:30)
[2025-01-20] MEDS ORDERED: ACETAMINOPHEN 325 MG TAB PO PRN (21:30)
[2025-01-20] MEDS ORDERED: MORPHINE SULFATE INJ 2 MG/ml SYRG IV PRN (21:30)
[2025-01-20] MEDS ORDERED: NITROGLYCERIN 0.4 MG SL TAB SL PRN (21:30)
[2025-01-20] MEDS: fentaNYL CITRATE 100 MCG/2 ML VL IV ONE (21:45)
[2025-01-20 21:47] VITALS: BP 108/53; PULSE 83; RESP 20; TEMP 97.3; O2SAT 98
[2025-01-20] MEDS: MORPHINE SULFATE INJ 2 MG/ml SYRG IV PRN (21:57)
[2025-01-20] MEDS: SODIUM CHLORIDE 0.9% 1,000 ML IV SCH (22:13)
[2025-01-20] MEDS: PIPERACILLIN-TAZOB 3.375GM 100 ML IV SCH (22:13)
[2025-01-21] VITALS (8 sets, daily range): BP systolic 102–117; BP diastolic 52–62; PULSE 54–80; RESP 15–19; TEMP 97.8–98.5; O2SAT 96–97
[2025-01-21] MEDS: HYDROcodone-ACET 5/325MG TAB PO PRN (01:36)
[2025-01-21 04:26] LABS: Albumin 4.2 g/dL (3.2-4.8); Anion Gap 8 (5-15); Aspartate Aminotransferase 14 U/L (13-40); BUN/Creatinine Ratio 14.8 (10.0-20.0); Blood Urea Nitrogen 12 mg/dL (9-23); Calcium 9.5 mg/dL (8.7-10.4); Carbon Dioxide 29 mmol/L (20-31); Chloride 103 mmol/L (98-107); Potassium 4.2 mmol/L (3.5-5.1); Sodium 140 mmol/L (136-145); Total Protein 6.9 g/dL (5.7-8.2)
[2025-01-21 04:27] LABS: Bilirubin, Total 0.4 mg/dL (0.2-1.0); Hematocrit 34.3 % (41.0-53.0); Hemoglobin 11.3 g/dL (13.5-17.5); Mean Corpuscular Hemoglobin 27.9 pg (28.0-32.0); Mean Corpuscular Hgb Conc. 32.9 g/dL (32.0-36.0); Mean Corpuscular Volume 84.7 fL (80.0-100.0); Platelet Count (auto) 186 10^3/uL (140-450); Red Blood Cells 4.05 10^6/uL (4.5-5.90); Red Cell Distribution Width 13.6 % (11.8-14.3)
[2025-01-21 04:31] LABS: Alanine Aminotransferase 54 U/L (7-40); Alkaline Phosphatase 600 U/L (46-116); Glucose 114 mg/dL (74-106)
[2025-01-21 04:43] LABS: Band Neutrophils % (manual) 0; Basophils % (manual) 0 (0.0-2.0); Blast Cells 0; Metamyelocytes % 0; Myelocytes % 0; Promyelocytes % 0
[2025-01-21 06:02] LABS: Eosinophils % (manual) 4 (0-7); Lymphocytes % (manual) 26 (10.0-50.0); Monocytes % (manual) 6 (0-12); Platelet Estimate Adequate; Reactive Lymphocytes 1
[2025-01-21 07:49] LABS: Blood Alcohol < 3.0 mg/dL (<10); Magnesium 2.2 mg/dL (1.6-2.6); Triglycerides 90 mg/dL (< 150)
[2025-01-21 07:50] LABS: LDL Cholesterol 86 mg/dL (< 100)
[2025-01-21 07:51] LABS: Cholesterol 156 mg/dL (< 200); HDL Cholesterol 55 mg/dL (40-59); INR 1.14 (0.9-1.15); Partial Thromboplastin Time 26.8 SEC (24.5-34.5); Phosphorus 4.9 mg/dL (2.4-5.1); Prothrombin Time 11.9 sec (9.3-11.8)
[2025-01-21 09:07] LABS: Lipase 285 U/L (12-53)
[2025-01-21] MEDS: ENOXAPARIN SOD 40 MG/0.4 ML SYRINGE SC ONE (10:30)
--- NOTE | 2025-01-21 12:11 | DVH ---
Procedure: US ABDOMEN LIMITED 01/21/2025 11:22 AM Indication: cholelithiasis Comparison: None Technique: Grayscale and color images of the right upper quadrant were obtained. FINDINGS: ASCITES: None. LIVER: Liver measures 15.7 cm in craniocaudal. Liver parenchyma is homogeneous in echotexture. No fo lux lesion is identified. No intrahepatic ductal dilatation. Normal directional flow is seen in the portal vein. GALLBLADDER: No gallstones. No gallbladder wall edema or pericholecystic fluid. Gallbladder wall thi ckness is 0.3 cm. Sonographic Catalan's sign is negative. COMMON BILE DUCT: 0.3 cm in caliber. PANCREAS: Visualized portions are unremarkable. RIGHT KIDNEY: 11.8 cm in length. No hydronephrosis. No lesions identified. AORTA, IVC: Visualized portions are unremarkable. OTHER: None. IMPRESSION: 1. No sonographic evidence for acute abnormality in the right upper quadrant. No cholelithiasis or ev idence of cholecystitis.
[2025-01-21] MEDS: IOHEXOL 300 MG/ML 100ML BOTTLE IJ ONE (13:15)
[2025-01-21] MEDS: SODIUM CHLORIDE 0.9% 1,000 ML IV SCH (14:30)
--- NOTE | 2025-01-21 14:51 | DVH ---
Exam: CT CT CHEST/AB/PL W CON- IV ONLY History: lytic lesions concerning for metastasis, r/o pancreatic canc COMPARISON: None Technique: Multidetector spiral CT of the abdomen and pelvis was performed from lung bases to pubic s ymphysis. Intravenous contrast was administered during this examination. Portal venous imaging was o btained. Axial, coronal and sagittal multiplanar reformats were performed by the technologist on a [employer] workstation. Radiation Dose : 1. Abdomen/Pelvis: CTDIvol 7.4mGy, DLP 589.71 mGy*cm. Findings: Lung Bases: No acute or significant lung base finding. Normal heart size. No pleural or pericardial effusion. Liver: The liver is normal in size. No focal lesions. Normal hepatic vascular enhancement. Gallbladder and Biliary Tree: Unremarkable Spleen: Unremarkable Pancreas: Diffusely edematous appearance to the pancreas with peripancreatic inflammatory change. Adrenal Glands: Unremarkable Kidneys: No hydronephrosis. Bladder: Unremarkable Bowel: The stomach is grossly normal in appearance. Small bowel and colon are normal in caliber and d istribution. The appendix is not visualized; however, no secondary findings of acute appendicitis emory ntified. Ascites: Absent Lymphadenopathy: No mesenteric, retroperitoneal or periportal lymphadenopathy. Abdominal Wall and Mesentery: Unremarkable. Vasculature: The visualized abdominal aorta is normal in size and caliber. Abdominal and pelvic vess els demonstrate normal enhancement. Pelvic Organs: Unremarkable Musculoskeletal: No acute fracture or dislocation. Diffuse mixed lytic and sclerotic appearance to t he osseous structures. IMPRESSION: Diffuse edematous appearance to the pancreas with surrounding peripancreatic inflammatory change. Fi ndings likely represent acute uncomplicated pancreatitis. Findings are not significantly changed sin e 01/18/2025. Clinical correlation advised. Unchanged indeterminate diffuse mixed lytic and sclerotic appearance of the visualized osseous struct ures of the thorax, abdomen and pelvis. Metastatic disease or underlying metabolic process such as ch ronic renal dysfunction are within differential considerations. Clinical correlation advised. Radiation optimization: All CT scans at this facility use at least one of these dose optimization leoncio hniques: automated exposure control mA and/or kV adjustment per patient size (includes targeted exam s where dose is matched to clinical indication) or iterative reconstruction.
--- NOTE | 2025-01-21 14:52 | DVHPNRES ---
Progress Note Date Seen: Jan 21, 2025 Resident Creating Document: TAMIA MCLAUGHLIN RESIDENT Medical Necessity Reason Pt with a Central, PICC or Fol: No Subjective Review of Systems Rodrigo Grossman it is a 29-year-old male patient who presents to the ED with chief complaint of stabbing back pain which last the whole day even during nights for the past three weeks with no antalgic position, which then progressed the night of his admission at 8:00 p.m. to diffuse stabbing/pressure abdominal pain mainly in epigastric and bilateral flanks, which improves while leaning forward and triggered by eating, associated with nausea, prompting his visit to the ED. patient reports 6 lb unintentional weight loss in the past three weeks. In ED abdomen and pelvis CT was completed which showed acute pancreatitis and innumerable lytic and sclerotic lesions in lumbar and pelvic bones. Denies palpitation, syncope, chest pain, dyspnea, vomiting, diarrhea, constipation, sick contacts, recent travel and motor or sensory deficits. Past medical history: Denies Surgical history: Appendectomy Family history: Denies Social history: Lives in [place] with and offsprings. Patient works in construction. Ex tobacco abuse, quit smoking seven years ago (less than one pack-year history of smoking) drinks two beers per month. Denies current tobacco, alcohol and other drug abuse Allergies: Denies Home medication: Denies Patient seen and examined at bedside. Currently still presents back pain and abdominal pain, has improved since admission. Lipase increase, currently patient is NPO planning to complete complementary workup to evaluate cause of pancreatitis and cause of lytic lesions in spine. Objective vital signs Vital Sign Date Time Temp Pulse Resp B/P (MAP) Pulse Ox O2 Delivery O2 Flow Rate FiO2 01/21/25 08:35 97.8 80 15 102/52 (69) 96 97.8 01/21/25 08:00 Room Air* 0 21 Total Intake and Output 01/20/25 01/20/25 01/21/25 15:00 23:00 07:00 Intake Total 2100 ml 100 ml Balance 2100 ml 100 ml medications Current Medications Medications Dose Ordered Sig/Dashawn Route Start Time Stop Time Status Last Admin Dose Admin Piperacillin Sod/ Tazobactam Sod 100 ml @ 25 mls/hr Q8HR IV 01/20/25 22:00 01/21/25 12:41 25 MLS/HR Sodium Chloride 1,000 ml @ 120 mls/hr Q8H20M IV 01/20/25 21:30 01/21/25 05:54 120 MLS/HR Acetaminophen/ Hydrocodone Bitart 1 tab Q4HP PRN PO 01/20/25 21:30 01/21/25 01:36 1 TAB Ondansetron HCl 4 mg Q4HP PRN IV 01/20/25 21:30 Docusate Sodium 100 mg BIDPRN PRN PO 01/20/25 21:30 Acetaminophen 650 mg Q6HP PRN PO 01/20/25 21:30 Morphine Sulfate 2 mg Q4HPRN PRN IV 01/20/25 21:30 01/20/25 21:57 2 MG Enoxaparin Sodium 40 mg DAILY SC 01/22/25 10:00 Examination Patient lying in bed, in no acute distress General: Lucid, afebrile, mucosae are moist Cardiovascular: Normal S1 and S2. No murmurs, gallops or rubs Respiratory: Normal ventilation mechanics. Clear lung sounds on auscultation Abdomen: Soft, tenderness on epigastrium, rest of abdomen is nontender, no organomegaly, normal bowel sounds MSK/skin: Mobilizes 4 limbs. Skin is dry and warm. Presents tenderness on lumbar spine bilaterally and on flanks with percussion Neurological: Oriented in 3 spheres. No motor no sensitive deficits. Pupils are isocoric and reactive laboratory and microbiology Laboratory Tests 01/21/25 03:33 Test 01/21/25 03:33 Range/Units Serum Glucose 114 H 74-106 mg/dL Problem List/Assessment/Plan Problem List/Assessment/Plan # Acute Pancreatitis (Boles's criteria on admission: 0 points) Patient currently is NPO since lipase increased from 2242-85 after clear liquid diet. Continue with IV fluids. Have discontinued Zosyn since pancreatitis seems to be mild, no evidence necrotizing pancreatitis. Completed abdomen and pelvis CT without contrast: Pancreas is enlarged and with retroperitoneal fat stranding (acute pancreatitis could be considered), innumerable lytic and sclerotic lesions throughout the lumbar spine and bony pelvis concerning of metastatic disease Completed abdominal ultrasound: No cholelithiasis nor cholecystitis # Probable metastatic disease lumbar spine and bony pelvis Completed abdomen and pelvis CT without contrast: Pancreas is enlarged and with retroperitoneal fat stranding (acute pancreatitis could be considered), innumerable lytic and sclerotic lesions throughout the lumbar spine and bony pelvis concerning of metastatic disease Ordered chest/abdomen/pelvis CT with contrast, pending Tumor markers were ordered GI was consulted: Unlikely to be pancreatic cancer, we will concerning for multiple myeloma versus prostate cancer Heme-Onc consulted # Newly diagnosed prediabetes (hemoglobin A1c 5.9%) Currently on mild insulin sliding scale Evaluate on discharge requirement of p.o. medication versus healthy lifestyle habits # Transaminitis Avoid hepatic toxic medication. Goals of care discussed with patient for over 18 minutes: Full code status Discussed plan with Dr. Alvarado, patient and nurses: Currently completing complementary workup (this includes imaging with IV contrast and tumor markers). Consulted GI and oncologist. Continue with treatment for pancreatitis. 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
[2025-01-21] MEDS ORDERED: DEXTROSE (50%) 50ML SYRG IV PRN (15:45)
[2025-01-21] MEDS: InsuLIN REG 1unit/0.01ml Soln (100units/ml) SC SCH (17:00)
[2025-01-21] MEDS: ACCU-CHEK COMFORT CURVE STRIP VI SCH (17:00)
--- NOTE | 2025-01-21 22:53 | DVHINCON2 ---
Date of service: Jan 21, [address] Marce Anderson Reason for Consultation Pancreatitis and abnormal finding GI tract imaging History of Present Illness The patient is a 29-year-old male who presented to [facility] ED with complaint of back pain. Patient reports symptoms progressively get worse with radiating pain to the abdomen, localized lower back pain rating 9/10 numeric scale, getting worse that prompted this visit. Abdomen/pelvis CT revealing pancreas appears somewhat enlarged and there is retroperitoneal fat trending; acute pancreatitis should be considered in the appropriate clinical setting. Patient does drink alcohol socially and on the weekends. Past Medical History Appendicitis Past Surgical History Appendectomy Past Medical History Acute appendicitis Lumber strain Past Surgical History Appendectomy Family History: Patient reports no known family medical history. Allergies: Coded Allergies: NO KNOWN ALLERGIES (Unverified , 05/25/23) Home Meds Active Scripts Methylprednisolone (Medrol Dosepak) 4 Mg Esa, 4 MG PO UD for 6 Days, #21 TAB UAD Prov:CHAITANYA ELKINSP 01/15/25 Hydrocodone-Acetaminophen (Hydrocodone Bitartrate/AC 5-325 mg) 1 Tab Tab, 1 TAB PO Q6HPRN PRN, #10 TAB as needed for pain Prov:NAHUM OSUNA CAD INTERN 10/31/23 Ibuprofen Micronized (MOTRIN TABLET) 600 Mg Tb, 600 MG PO TID PRN for 5 Days, #15 TAB *Black box warning-NSAIDS can increase risk of [place] & hypertension, GI irritation, ulceration, bleed, perferation. Do not use post cardiac surgery. Use short duration/lowest effective dose. Prov:MARYLIN CAMARGO MD 05/25/23 Discontinued Scripts Tizanidine Hydrochloride (Tizanidine Hcl) 4 Mg Tab, 4 MG PO BID PRN for 4 Days, #8 TAB Prov:CHAITANYA ELKINSP 01/15/25 Current Medications Current Medications Medications (Trade) Dose Ordered Sig/Dashawn Route PRN Reason Start Time Stop Time Status Last Admin Enoxaparin Sodium (Lovenox) 40 mg DAILY SC 01/22/25 10:00 Sodium Chloride 1,000 ml @ 150 mls/hr Q6H40M IV 01/21/25 14:30 01/21/25 22:40 Diagnostic Test (Pha) (Accu-Chek Comfort Curve T) 1 strip ACHS 01/21/25 17:00 01/21/25 22:00 Insulin Human Regular (InsuLIN R) ACHS SC 01/21/25 17:00 Dextrose 50 ml UD PRN IV Blood Sugar LESS THAN 60 01/21/25 15:45 Vital Signs Vital Signs Date Time Temp Pulse Resp B/P (MAP) Pulse Ox O2 Delivery O2 Flow Rate FiO2 01/21/25 17:00 98.5 77 16 114/61 (78) 97 98.5 01/21/25 08:00 Room Air* 0 21 Labs/Diagnostic Data Labs Test 01/21/25 16:43 01/21/25 14:27 01/21/25 03:33 01/20/25 11:13 Range/Units POC Glucose 88 70-106 mg/dl White Blood Count 10.0 # 4.4-10.8 10^3/uL Red Blood Count 4.05 L 4.5-5.90 10^6/uL Hemoglobin 11.3 #L 13.5-17.5 g/dL Hematocrit 34.3 #L 41.0-53.0 % Mean Corpuscular Volume 84.7 80.0-100.0 fL Mean Corpuscular Hemoglobin 27.9 L 28.0-32.0 pg Mean Corpuscular Hemoglobin Concent 32.9 32.0-36.0 g/dL Red Cell Distribution Width 13.6 11.8-14.3 % Platelet Count 186 140-450 10^3/uL Mean Platelet Volume 7.2 6.9-10.8 fL Neutrophils (%) (Auto) 37.0-80.0 % Lymphocytes (%) (Auto) 10.0-50.0 % Monocytes (%) (Auto) 0.0-12.0 % Basophils (%) (Auto) 0.0-2.0 % Neutrophils # (Auto) 1.6-8.6 10 ^3/uL Lymphocytes # (Auto) 0.4-5.4 10 ^3/uL Monocytes # (Auto) 0-1.3 10 ^3/uL Differential Total Cells Counted 100.0 100 Neutrophils % (Manual) 63 37.0-80.0 Band Neutrophils % (Manual) 0 Lymphocytes % (Manual) 26 10.0-50.0 Monocytes % (Manual) 6 0-12 Eosinophils % (Manual) 4 0-7 Basophils % (Manual) 0 0.0-2.0 Metamyelocytes % (manual) 0 Myelocytes % (Manual) 0 Promyelocytes % (Manual) 0 Blast Cells % (Manual) 0 Reactive Lymphocytes 1 Platelet Estimate Adequate Prothrombin Time 11.9 H 9.3-11.8 sec Prothrombin Time INR 1.14 0.9-1.15 Activated Partial Thromboplast Time 26.8 24.5-34.5 SEC Sodium Level 140 136-145 mmol/L Potassium Level 4.2 3.5-5.1 mmol/L Chloride Level 103 98-107 mmol/L Carbon Dioxide Level 29 20-31 mmol/L Anion Gap 8 5-15 Blood Urea Nitrogen 12 9-23 mg/dL Creatinine 0.81 0.700-1.30 mg/dL Glomerular Filtration Rate Calc 121 >90 mL/min BUN/Creatinine Ratio 14.8 10.0-20.0 Serum Glucose 114 H 74-106 mg/dL Hemoglobin A1c 5.9 H <5.7 % A1C Calcium Level 9.5 8.7-10.4 mg/dL Phosphorus Level 4.9 2.4-5.1 mg/dL Magnesium Level 2.2 1.6-2.6 mg/dL Total Bilirubin 0.4 0.2-1.0 mg/dL Aspartate Amino Transferase (AST) 14 13-40 U/L Alanine Aminotransferase (ALT) 54 H 7-40 U/L Alkaline Phosphatase 600 H 46-116 U/L Lactate Dehydrogenase 223 120-246 U/L Total Protein 6.9 5.7-8.2 g/dL Albumin 4.2 3.2-4.8 g/dL Triglycerides Level 90 < 150 mg/dL Cholesterol Level 156 < 200 mg/dL LDL Cholesterol 86 < 100 mg/dL HDL Cholesterol 55 40-59 mg/dL Lipase 285 H 12-53 U/L Thyroid Stimulating Hormone (TSH) 2.38 0.55-4.78 uIU/mL Plasma/Serum Blood Alcohol < 3.0 <10 mg/dL Red Blood Cell Morphology Normal Lactic Acid Level 1.1 0.4-2.0 mmol/L Creatine Kinase 51 46-171 U/L Test 01/20/25 10:58 Range/Units Urine Color Yellow Yellow Urine Clarity Clear Clear Urine pH 6.0 5.0-9.0 Urine Specific [place] 1.032 1.001-1.035 Urine Protein Trace H Negative Urine Ketones Trace Negative Urine Blood Trace H Negative /uL Urine Nitrite Negative Negative Urine Bilirubin Negative Negative Urine Urobilinogen 2 H Negative mg/dL Urine Leukocyte Esterase Negative Negative /uL Urine RBC 2 0 - 3 /hpf Urine Microscopic WBC 1 0-3 /HPF Urine Squamous Epithelial Cells Few <5 /hpf Urine Bacteria None seen None Seen /hpf Urine Glucose Normal Normal mg/dL Urine Opiates Screen Neg NEGATIVE Urine Fentanyl Screen Neg NEGATIVE Urine Barbiturates Screen Neg NEGATIVE Urine Phencyclidine Screen Neg NEGATIVE Urine Amphetamines Screen Neg NEGATIVE Urine Benzodiazepines Screen Neg NEGATIVE Urine Cocaine Screen Neg NEGATIVE Urine Cannabinoids Screen Neg NEGATIVE CT Chest Abd Pelvis IMPRESSION: Diffuse edematous appearance to the pancreas with surrounding peripancreatic inflammatory change. Findings likely represent acute uncomplicated pancreatitis. Findings are not significantly changed since 01/18/2025. Clinical correlation advised. Unchanged indeterminate diffuse mixed lytic and sclerotic appearance of the visualized osseous structures of the thorax, abdomen and pelvis. Metastatic disease or underlying metabolic process such as chronic renal dysfunction are within differential considerations. Clinical correlation advised. CT ABD PELVIS IMPRESSION: 1. Pancreas appears somewhat enlarged and there is retroperitoneal fat stranding. Acute pancreatitis should be considered in the appropriate clinical setting. Correlation with laboratory values recommended. 2. Innumerable lytic and sclerotic lesions throughout the lumbar spine and the bony pelvis, concerning for metastatic disease. If there is no known cancer history, CT of the chest, abdomen and pelvis with intravenous and oral contrast is recommended for further evaluation. Problems(with codes): (1) Leukocytosis, unspecified (2) Generalized weakness (3) Metastatic disease (4) Acute pancreatitis (5) Low back pain (6) Lumbar sprain (7) Elevated alkaline phosphatase level (8) Elevated liver enzymes Plan/Recommendation Plan Clear liquid diet IV fluid hydration Pain control Tumor markers Monitor lipase levels Discontinue alcohol Oncology consult Possible MRCP Possible rule out bony metabolic pathology like records or hyperparathyroidism Plan discussed with: Patient, Other (Dr Marce Anderson) NEFTALI ACUÑA MD Jan 21, 2025 22:53
[2025-01-22] VITALS (9 sets, daily range): BP systolic 110–130; BP diastolic 56–85; PULSE 61–90; RESP 18–20; TEMP 97.4–98.5; O2SAT 96–100
[2025-01-22 05:59] LABS: Hematocrit 33.5 % (41.0-53.0); Hemoglobin 11.6 g/dL (13.5-17.5); Mean Corpuscular Hemoglobin 29.2 pg (28.0-32.0); Mean Corpuscular Hgb Conc. 34.6 g/dL (32.0-36.0); Mean Corpuscular Volume 84.4 fL (80.0-100.0); Platelet Count (auto) 173 10^3/uL (140-450); Red Blood Cells 3.97 10^6/uL (4.5-5.90); Red Cell Distribution Width 13.4 % (11.8-14.3); White Blood Cell 9.1 10^3/uL (4.4-10.8)
[2025-01-22 06:08] LABS: Basophils % (manual) 0 (0.0-2.0); Blast Cells 0; Metamyelocytes % 0; Myelocytes % 0; Promyelocytes % 0; Reactive Lymphocytes 0
[2025-01-22 06:16] LABS: Albumin 4.2 g/dL (3.2-4.8); Anion Gap 10 (5-15); Aspartate Aminotransferase 18 U/L (13-40); BUN/Creatinine Ratio 11.1 (10.0-20.0); Bilirubin, Total 0.6 mg/dL (0.2-1.0); Blood Urea Nitrogen 9 mg/dL (9-23); Calcium 9.8 mg/dL (8.7-10.4); Carbon Dioxide 28 mmol/L (20-31); Chloride 100 mmol/L (98-107); Glucose 94 mg/dL (74-106); Sodium 138 mmol/L (136-145); Total Protein 7.1 g/dL (5.7-8.2)
[2025-01-22 06:33] LABS: Alanine Aminotransferase 42 U/L (7-40); Alkaline Phosphatase 630 U/L (46-116); Lipase 214 U/L (12-53)
[2025-01-22 08:13] LABS: Band Neutrophils % (manual) 3; Eosinophils % (manual) 3 (0-7); Lymphocytes % (manual) 27 (10.0-50.0); Monocytes % (manual) 8 (0-12); Platelet Estimate Adequate; RBC Morphology Normal
[2025-01-22] MEDS: ENOXAPARIN SOD 40 MG/0.4 ML SYRINGE SC SCH (10:12)
--- NOTE | 2025-01-22 11:05 | DVH ---
MRCP WITHOUT CONTRAST CLINICAL HISTORY: pancreatitis; elevated alk phosphatase; bony mets TECHNIQUE: Multiplanar, multisequence MRCP and MR images of the abdomen without contrast. 3D MRCP was performed using maximum intensity projection reconstruction on an independent workstation under concurrent supervision. Comparison: CT abdomen 01/21/2025 FINDINGS: The gallbladder appears within normal limits without obvious gallstones. There is no intrahepatic or extrahepatic biliary ductal dilatation. The common duct measures 4 mm in maximum diameter there is t apering of the distal duct at the level of the ampulla. There is no pancreatic ductal dilatation. The liver, spleen, pancreas, kidneys, and adrenal glands appear normal. There is no free fluid or f ree air. The visualized small and large bowel loops demonstrate normal caliber. The stomach grossly a ppears unremarkable. The visualized lung bases are clear. The osseous structures and soft tissues ap pear within normal limits. IMPRESSION: 1. Unremarkable noncontrast MRI abdomen and MRCP. HS:Y
[2025-01-22] MEDS: GADOTERATE MEG 10 MMOL/20ml INJ (0.5MMOL/ml) IV ONE (12:35)
--- NOTE | 2025-01-22 13:20 | DVHINCON2 ---
Date of service: Jan 22, 2025 Referring Physician Sue Amin Reason for Consultation Radiographically suspicious metastatic disease in the bones History of Present Illness 29 years old gentleman with no history of smoking or drinking or drugs. He is in construction. He has been in good health. He came to the hospital with back pain and the rib pains progressively getting worse over the last three weeks now 6 lb over the last three weeks CT of the chest abdomen pelvis with IV contrast showed diffuse edematous appearance to the pancreas with surrounding peripancreatic inflammatory changes Mixed lytic and sclerotic appearance of the visualized osseous structures of the thorax, abdomen and pelvis. Metastatic disease could not be ruled out. MRCP from 01/22/2025 showed normal CBC showed a white count 9.1 hemoglobin 11.6 platelets 173 AST 18 ALT 42 alkaline phosphatase 630 CEA 10.7 PTH 40.4. CA 19-9, alpha- fetoprotein and PSA is pending. LDH 223. BUN nine creatinine 0.8 total protein 7.1 albumin 4.2 PT INR 1.14 PTT 26.8 Complaints of headaches nausea vomiting. He occasionally does feel nauseous. He has been constipated. No urinary discomfort. No fevers or night sweats Past Medical History Appendix surgery Family History: Patient reports no known family medical history. Family History One of his cousins had some blood cancer Social History No smoking drinking or drugs. The patient is and has two children Allergies: Coded Allergies: NO KNOWN ALLERGIES (Unverified , 05/25/23) Home Meds Active Scripts Hydrocodone-Acetaminophen (Hydrocodone Bitartrate/AC 5-325 mg) 1 Tab Tab, 1 TAB PO Q6HPRN PRN, #10 TAB as needed for pain Prov:NAHUM OSUNA Q KNIFE BLADE POLISHER 10/31/23 Ibuprofen Micronized (MOTRIN TABLET) 600 Mg Tb, 600 MG PO TID PRN for 5 Days, #15 TAB *Black box warning-NSAIDS can increase risk of [place] & hypertension, GI irritation, ulceration, bleed, perferation. Do not use post cardiac surgery. Use short duration/lowest effective dose. Prov:MARYLIN CAMARGO MD 05/25/23 Discontinued Scripts Methylprednisolone (Medrol Dosepak) 4 Mg Esa, 4 MG PO UD for 6 Days, #21 TAB UAD Prov:CHAITANYA ELKINSP 01/15/25 Tizanidine Hydrochloride (Tizanidine Hcl) 4 Mg Tab, 4 MG PO BID PRN for 4 Days, #8 TAB Prov:CHAITANYA ELKINS PRINTING SCREEN ASSEMBLER 01/15/25 Current Medications Current Medications Medications (Trade) Dose Ordered Sig/Dashawn Route PRN Reason Start Time Stop Time Status Last Admin Enoxaparin Sodium (Lovenox) 40 mg DAILY SC 01/22/25 10:00 01/22/25 10:12 Sodium Chloride 1,000 ml @ 150 mls/hr Q6H40M IV 01/21/25 14:30 01/22/25 10:12 Diagnostic Test (Pha) (Accu-Chek Comfort Curve T) 1 strip ACHS 01/21/25 17:00 01/22/25 11:31 Insulin Human Regular (InsuLIN R) ACHS SC 01/21/25 17:00 Dextrose 50 ml UD PRN IV Blood Sugar LESS THAN 60 01/21/25 15:45 Vital Signs Vital Signs Date Time Temp Pulse Resp B/P (MAP) Pulse Ox O2 Delivery O2 Flow Rate FiO2 01/22/25 09:00 98.0 78 18 117/62 (80) 96 98.0 01/22/25 08:10 Room Air* 0 21 Physical Exam Moderately built and nourished, in no acute distress, alert and oriented. No jaundice Head and neck: Unremarkable for any masses or neck nodes. No conjunctival or mucosal hemorrhage Lungs: Clear Cardiovascular: S1-S2 heard well Abdomen: No organomegaly, tenderness or ascites. Bowel sounds are present. Extremities: No clubbing edema cyanosis or calf tenderness. Skin: Unremarkable for petechia purpura ecchymosis Lymphadenopathy: None Neurological exam: No focal deficit Spine: Somewhat sensitive to touch in the lower spine Labs/Diagnostic Data Labs Test 01/22/25 05:57 01/22/25 05:20 01/21/25 14:27 01/21/25 03:33 Range/Units POC Glucose 93 70-106 mg/dl White Blood Count 9.1 4.4-10.8 10^3/uL Red Blood Count 3.97 L 4.5-5.90 10^6/uL Hemoglobin 11.6 L 13.5-17.5 g/dL Hematocrit 33.5 L 41.0-53.0 % Mean Corpuscular Volume 84.4 80.0-100.0 fL Mean Corpuscular Hemoglobin 29.2 28.0-32.0 pg Mean Corpuscular Hemoglobin Concent 34.6 32.0-36.0 g/dL Red Cell Distribution Width 13.4 11.8-14.3 % Platelet Count 173 140-450 10^3/uL Mean Platelet Volume 7.2 6.9-10.8 fL Neutrophils (%) (Auto) 37.0-80.0 % Lymphocytes (%) (Auto) 10.0-50.0 % Monocytes (%) (Auto) 0.0-12.0 % Basophils (%) (Auto) 0.0-2.0 % Neutrophils # (Auto) 1.6-8.6 10 ^3/uL Lymphocytes # (Auto) 0.4-5.4 10 ^3/uL Monocytes # (Auto) 0-1.3 10 ^3/uL Differential Total Cells Counted 100.0 100 Neutrophils % (Manual) 59 37.0-80.0 Band Neutrophils % (Manual) 3 Lymphocytes % (Manual) 27 10.0-50.0 Monocytes % (Manual) 8 0-12 Eosinophils % (Manual) 3 0-7 Basophils % (Manual) 0 0.0-2.0 Metamyelocytes % (manual) 0 Myelocytes % (Manual) 0 Promyelocytes % (Manual) 0 Blast Cells % (Manual) 0 Reactive Lymphocytes 0 Platelet Estimate Adequate Red Blood Cell Morphology Normal Sodium Level 138 136-145 mmol/L Potassium Level 4.0 3.5-5.1 mmol/L Chloride Level 100 98-107 mmol/L Carbon Dioxide Level 28 20-31 mmol/L Anion Gap 10 5-15 Blood Urea Nitrogen 9 9-23 mg/dL Creatinine 0.81 0.700-1.30 mg/dL Glomerular Filtration Rate Calc 121 >90 mL/min BUN/Creatinine Ratio 11.1 10.0-20.0 Serum Glucose 94 74-106 mg/dL Calcium Level 9.8 8.7-10.4 mg/dL Total Bilirubin 0.6 0.2-1.0 mg/dL Aspartate Amino Transferase (AST) 18 13-40 U/L Alanine Aminotransferase (ALT) 42 H 7-40 U/L Alkaline Phosphatase 630 H 46-116 U/L Total Protein 7.1 5.7-8.2 g/dL Albumin 4.2 3.2-4.8 g/dL Lipase 214 H 12-53 U/L Carcinoembryonic Antigen 10.74 <=5.0 ng/mL Parathyroid Hormone (Intact) 40.4 18.4-80.1 pg/mL Prothrombin Time 11.9 H 9.3-11.8 sec Prothrombin Time INR 1.14 0.9-1.15 Activated Partial Thromboplast Time 26.8 24.5-34.5 SEC Hemoglobin A1c 5.9 H <5.7 % A1C Phosphorus Level 4.9 2.4-5.1 mg/dL Magnesium Level 2.2 1.6-2.6 mg/dL Lactate Dehydrogenase 223 120-246 U/L Triglycerides Level 90 < 150 mg/dL Cholesterol Level 156 < 200 mg/dL LDL Cholesterol 86 < 100 mg/dL HDL Cholesterol 55 40-59 mg/dL Vitamin B12 Level 498 211-911 pg/mL Vitamin D 25-Hydroxy 18.4 L 30.0-100 ng/mL Thyroid Stimulating Hormone (TSH) 2.38 0.55-4.78 uIU/mL Plasma/Serum Blood Alcohol < 3.0 <10 mg/dL Test 01/20/25 11:13 01/20/25 10:58 Range/Units Lactic Acid Level 1.1 0.4-2.0 mmol/L Creatine Kinase 51 46-171 U/L Urine Color Yellow Yellow Urine Clarity Clear Clear Urine pH 6.0 5.0-9.0 Urine Specific [place] 1.032 1.001-1.035 Urine Protein Trace H Negative Urine Ketones Trace Negative Urine Blood Trace H Negative /uL Urine Nitrite Negative Negative Urine Bilirubin Negative Negative Urine Urobilinogen 2 H Negative mg/dL Urine Leukocyte Esterase Negative Negative /uL Urine RBC 2 0 - 3 /hpf Urine Microscopic WBC 1 0-3 /HPF Urine Squamous Epithelial Cells Few <5 /hpf Urine Bacteria None seen None Seen /hpf Urine Glucose Normal Normal mg/dL Urine Opiates Screen Neg NEGATIVE Urine Fentanyl Screen Neg NEGATIVE Urine Barbiturates Screen Neg NEGATIVE Urine Phencyclidine Screen Neg NEGATIVE Urine Amphetamines Screen Neg NEGATIVE Urine Benzodiazepines Screen Neg NEGATIVE Urine Cocaine Screen Neg NEGATIVE Urine Cannabinoids Screen Neg NEGATIVE Assessment 1. radiographically suspicious lytic and sclerotic lesion in the bones with low back pain and 6 lb of weight loss primary is not clear. May have some concern about the possibility of melanoma. Myeloma workup is pending the patient has constipation and some feeling of nausea MRCP was negative. CT of the chest abdomen pelvis except for the bony lesions was unremarkable He has a CEA of 10.4. Alpha-fetoprotein PSA CA 19-9 is pending. Plan/Recommendation We will suggest doing a bone scan One of the bony lesion biopsies by the radiologist Follow up with me after the biopsy Suggest doing an MRI of the brain with and without contrast Plan discussed with: Patient RADHATAWANNA MD Jan 22, 2025 13:20
--- NOTE | 2025-01-22 13:26 | DVHPN2 ---
Progress Note Date Seen: Jan 22, 2025 Resident Creating Document: DOMINIC DEAL RESIDENT Medical Necessity Reason Pt with a Central, PICC or Fol: No Subjective Review of Systems The patient is a 29-year-old male who presented to [facility] ED with complaint of back pain. Patient reports symptoms progressively get worse with radiating pain to the abdomen, localized lower back pain rating 9/10 numeric scale, getting worse that prompted this visit. Abdomen/pelvis CT revealing pancreas appears somewhat enlarged and there is retroperitoneal fat trending; acute pancreatitis should be considered in the appropriate clinical setting. Patient does drink alcohol socially and on the weekends. Still complaining of mild abdominal pain, Today lipase was 214 Objective vital signs Vital Sign Date Time Temp Pulse Resp B/P (MAP) Pulse Ox O2 Delivery O2 Flow Rate FiO2 01/22/25 13:09 98.0 81 18 117/66 (83) 99 98.0 01/22/25 08:10 Room Air* 0 21 Total Intake and Output 01/21/25 01/21/25 01/22/25 15:00 23:00 07:00 Intake Total 400 ml 1000 ml Balance 400 ml 1000 ml medications Current Medications Medications Dose Ordered Sig/Dashawn Route Start Time Stop Time Status Last Admin Dose Admin Acetaminophen/ Hydrocodone Bitart 1 tab Q4HP PRN PO 01/20/25 21:30 01/22/25 11:41 1 TAB Ondansetron HCl 4 mg Q4HP PRN IV 01/20/25 21:30 Docusate Sodium 100 mg BIDPRN PRN PO 01/20/25 21:30 Acetaminophen 650 mg Q6HP PRN PO 01/20/25 21:30 Morphine Sulfate 2 mg Q4HPRN PRN IV 01/20/25 21:30 01/21/25 22:50 2 MG Enoxaparin Sodium 40 mg DAILY SC 01/22/25 10:00 01/22/25 10:12 40 MG Sodium Chloride 1,000 ml @ 150 mls/hr Q6H40M IV 01/21/25 14:30 01/22/25 10:12 150 MLS/HR Diagnostic Test (Pha) 1 strip ACHS 01/21/25 17:00 01/22/25 11:31 1 STRIP Insulin Human Regular ACHS SC 01/21/25 17:00 Dextrose 50 ml UD PRN IV 01/21/25 15:45 Examination General: Lucid, afebrile, mucosae are moist Cardiovascular: Normal S1 and S2. No murmurs, gallops or rubs Respiratory: Normal ventilation mechanics. Clear lung sounds on auscultation Abdomen: Soft, tenderness on epigastrium, rest of abdomen is nontender, no organomegaly, normal bowel sounds MSK/skin: Mobilizes 4 limbs. Skin is dry and warm. Presents tenderness on lumbar spine bilaterally and on flanks with percussion Neurological: Oriented in 3 spheres. No motor no sensitive deficits. Pupils are isocoric and reactive laboratory and microbiology Laboratory Tests 01/22/25 05:20 Test 01/22/25 05:20 Range/Units Serum Glucose 94 74-106 mg/dL Problem List/Assessment/Plan Problem List/Assessment/Plan (1) Leukocytosis, unspecified (2) Generalized weakness (3) Metastatic disease (4) Acute pancreatitis (5) Low back pain (6) Lumbar sprain (7) Elevated alkaline phosphatase level (8) Elevated liver enzymes (9) Probable metastatic disease lumbar spine and bony pelvis Plan Diet advanced to full Liquid diet as tolerated IV fluid hydration Pain control Tumor markers Monitor lipase levels Discontinue alcohol Oncology consult MRCP done: Unremarkable noncontrast MRI abdomen and MRCP Possible rule out bony metabolic pathology like records or hyperparathyroidism Thank you so much for the opportunity to consult on your patient. GI team will follow the patient. In case of any questions or concerns please feel free to reach out. Case discussed with Dr. Tameka Philippe. The patient and caregiver team agreed to the plan. Plan discussed with: Patient DOMINIC DEAL RESIDENT Jan 22, 2025 13:26
[2025-01-22] MEDS: fentaNYL CITRATE 100 MCG/2 ML VL IV ONE (13:30)
[2025-01-22] MEDS: MIDAZOLAM HCL 2MG/2ML 2ml VIAL (1mg/ml) IV ONE (14:00)
--- NOTE | 2025-01-22 14:36 | DVH ---
MRI BRAIN WITH CONTRAST CLINICAL HISTORY: r/o meta TECHNIQUE: Multiplanar multisequence images of the brain were obtained prior to and following intravenous admini stration of contrast. 10/10 cc of gadavist contrast from a prefilled syringe was administered intravenously. Comparison: None FINDINGS: There is no restricted diffusion. The lange and white matter signal is appropriate. There is no pathol ogic enhancement. There is no evidence of hemorrhage, mass, mass effect or midline shift. There is no hydrocephalus or extra-axial fluid collection. The visualized intracranial vasculature demonstrates appropriate flow-voids. The midline structures appear unremarkable. The craniocervical junction is wi thin normal limits. The calvarium demonstrates normal marrow signal. The paranasal sinuses and mastoi d air cells are clear. IMPRESSION: 1. Unremarkable MRI brain. There is no evidence of intracranial metastasis. HS:Y
--- NOTE | 2025-01-22 15:07 | DVH ---
PROCEDURE: CT GUIDED BONE MARROW BIOPSY HISTORY: BONE MARROE BX DOCUMENTATION: Informed consent was obtained and a procedural time out was performed. TECHNIQUE: The skin over the right iliac bone was sterilely prepped, draped, and infiltrated with 1% lidocaine. Using CT guidance, a 11-gauge coaxial needle was directed into right iliac bone . The 12- gauge OnControl biopsy needle was inserted coaxially and 1 core biopsy specimens were obtained. 20 c c of bone marrow aspirate and a bone marrow core was obtained. The coaxial needle was then removed an d hemostasis was achieved with manual compression. Sterile dressings were applied. FINDINGS: Limited CT imaging demonstrates right iliac bone appearsa normal . Imaging confirms the nee dle tip within right iliac bone . Post-biopsy CT imaging showed no apparent complication. IMPRESSION: SUCCESSFUL CT GUIDED BONE MARROW BIOPSY. PLEASE FOLLOW UP WITH PATHOLOGY FOR FINAL RESULTS. Procedure by Dr. Galvan Radiation dose information: CTDI vol 185.4 mGy; DLP mGycm [address] are the volume Computed Tomography (CT) Dose Index (CTDIvol) and the Dose Length Product (DLP), and are measured in units of mGy and mGy-cm, respectively. These indicators are not patient dose, but values generated from the CT scanner acquisition factors. The report includes radiation exposure data for exposures received during this examination. If multiple reports are prod uced from this examination, the exposure data is duplicated in each report. The exposure data report ed is indicative, but not determinative, of the radiation dose received by this patient.
--- NOTE | 2025-01-22 17:19 | DVHPNRES ---
Progress Note Date Seen: Jan 22, 2025 Resident Creating Document: MARILYNN CHRISTOPHER RESIDENT Medical Necessity Reason Pt with a Central, PICC or Fol: No Subjective Review of Systems 29-year-old male patient with no past medical history who presented to the emergency department with a chief complaint of severe stabbing back pain progressively getting worse for the past 3 weeks. Patient reports losing weight approximately 6 lb as he had nausea episodes while eating. CT scan showed acute pancreatitis and several lytic and sclerotic lesions in the lumbar and pelvic bones. An MRI was performed that was unremarkable with no evidence of intracranial metastasis, today the patient underwent a successful CT-guided bone marrow biopsy we will follow up with pathology for final results. MRCP was performed, there was no free fluid or free air 3 lung bases were clear and the osseous structures and soft tissues appear within normal limits. White cell count normalizes from 15 until 9.1 today hemoglobin still on 11.6 , alkaline phosphatase 630, and carcinoembryonic antigen was high other markers such as tumor marker AF be CA 19 9 free PSA are still pending. Hemato Oncology and Radiology were consulted. Past medical history: Denies Surgical history: Appendectomy Family history: Denies Social history: Lives in [place] with and offsprings. Patient works in construction. Ex tobacco abuse, quit smoking seven years ago (less than one pack-year history of smoking) drinks two beers per month. Denies current tobacco, alcohol and other drug abuse Allergies: Denies Home medication: Denies ROS: Constitutional: No: Fever, Chills, Sweats, Weakness, Malaise, Other Eyes: No: Pain, Vision change, Conjunctivae inflammation, Eyelid inflammation, Other, Redness ENT: No: Ear pain, Ear discharge, Nose pain, Nose discharge, Nose congestion, Mouth pain, Mouth swelling, Throat pain, Throat swelling, Other Respiratory: No Wheezing, Hemoptysis, Pleuritic Pain, Sputum, Wheezing, Other Cardiovascular: No: Chest Pain, Palpitations, Orthopnea, Paroxysmal Noc. Dyspnea, Edema, Lt Headedness, Other Gastrointestinal: No: Nausea, Vomiting, Abdominal Pain, Diarrhea, Constipation, Melena, Hematochezia, Other Musculoskeletal: No: other, neck pain, shoulder pain, arm pain, back pain, hand pain, leg pain, foot pain Neurological:; No: Weakness, Numbness, Incoordination, Change in speech, Confusion, Seizures Patient reports: No new complaints Changes from previous H/P or p: No Changes Objective vital signs Vital Sign Date Time Temp Pulse Resp B/P (MAP) Pulse Ox O2 Delivery O2 Flow Rate FiO2 01/22/25 16:47 97.9 72 18 112/56 (74) 97 97.9 01/22/25 08:10 Room Air* 0 21 Total Intake and Output 01/21/25 01/21/25 01/22/25 15:00 23:00 07:00 Intake Total 400 ml 1000 ml Balance 400 ml 1000 ml medications Current Medications Medications Dose Ordered Sig/Dashawn Route Start Time Stop Time Status Last Admin Dose Admin Acetaminophen/ Hydrocodone Bitart 1 tab Q4HP PRN PO 01/20/25 21:30 01/22/25 11:41 1 TAB Ondansetron HCl 4 mg Q4HP PRN IV 01/20/25 21:30 Docusate Sodium 100 mg BIDPRN PRN PO 01/20/25 21:30 Acetaminophen 650 mg Q6HP PRN PO 01/20/25 21:30 Morphine Sulfate 2 mg Q4HPRN PRN IV 01/20/25 21:30 01/21/25 22:50 2 MG Enoxaparin Sodium 40 mg DAILY SC 01/22/25 10:00 01/22/25 10:12 40 MG Sodium Chloride 1,000 ml @ 150 mls/hr Q6H40M IV 01/21/25 14:30 01/22/25 10:12 150 MLS/HR Diagnostic Test (Pha) 1 strip ACHS 01/21/25 17:00 01/22/25 16:15 1 STRIP Insulin Human Regular ACHS SC 01/21/25 17:00 Dextrose 50 ml UD PRN IV 01/21/25 15:45 Examination Examination General Appearance: Alert, Oriented X3, Cooperative, No acute distress Respiratory: Clear to auscultation, Normal air movement Cardiovascular: Regular rate, Normal S1, Normal S2 Abdominal: Normal bowel sounds Extremities: No cyanosis, No edema, Normal pulses, No tenderness/swelling Skin: No rashes, No breakdown Neuro: Normal gait, Normal speech, Strength at 5/5 X4 ext, Normal tone, Sensation intact, Cranial nerves 3-12 NL, Reflexes 2+ Psych/Mental Status: Mental status NL, Mood NL laboratory and microbiology Laboratory Tests 01/22/25 05:20 Test 01/22/25 05:20 Range/Units Serum Glucose 94 74-106 mg/dL Problem List/Assessment/Plan Problem List/Assessment/Plan # Acute Pancreatitis ([place]'s criteria on admission: 0 points) Advance diet, full liquid diet. MRCP , unremarkable Consult #lytic and sclerotic lesions throughout the lumbar spine and bony pelvis concerning of metastatic disease # ruled out brain metastasis # melanoma? #rule out bony metabolic pathology like hyperparathyroidism -CT guided needle biopsy, pending pathology results MRI of the brain, unremarkable tumor markers, pending Heme-Onc consult # Newly diagnosed prediabetes (hemoglobin A1c 5.9%) Currently on mild insulin sliding scale Evaluate on discharge requirement of p.o. medication versus healthy lifestyle habits # Transaminitis Avoid hepatic toxic medication. # overweight, BMI 26 Lifestyle modification counseling Case discussed with Dr. Gray Code status: Full code Goals of care discussed with the patient for 34 minutes Plan discussed with: Patient My Orders My Orders Orders - MARILYNN CHRISTOPHER Procedure Category Date Status Time Stool Occult Blood LAB 01/22/25 Uncollected 11:26 [place] Lambda Lite LAB 01/22/25 Logged Chain Free S 11:27 Protein LAB 01/22/25 Logged Electrophoresis Serum 11:27 Protein Electro LAB 01/22/25 Logged Random Urine 11:[address] 01/22/25 Resulted Needle Placeme 13:[address] 01/22/25 Resulted 13:34 Consistent DIET 01/22/25 Transmitted Carb(Ccho)Diabetes Dinner Dietary Evaluation Review Comments: 1) Advance diet as medically feasible 2) Consider CCHO 60gm 3) Continue current plan of care Expected Outcomes/Goals: Pt will meet >75% estimated needs Fu 2-3 days Date of Service: Jan 22, 2025 Billing Provider: MAN GRAY MD Common Visit Codes: [id number] INP/OBS CARE(HIGH) MARILYNN CHRISTOPHER RESIDENT Jan 22, 2025 17:19 MAN GRAY MD Jan 29, 2025 14:50
[2025-01-23] VITALS (7 sets, daily range): BP systolic 102–146; BP diastolic 52–91; PULSE 76–94; RESP 17–19; TEMP 97.3–98.7; O2SAT 95–100
[2025-01-23 07:18] LABS: Basophils # (auto) 0.1 10 ^3/uL (0-0.2); Basophils % (auto) 0.7 % (0.0-2.0); Eosinophils # (auto) 0.3 10 ^3/uL (0-0.8); Eosinophils % (auto) 3.3 % (0.0-7.0); Hematocrit 31.9 % (41.0-53.0); Hemoglobin 11.3 g/dL (13.5-17.5); Lymphocytes # (auto) 2.2 10 ^3/uL (0.4-5.4); Lymphocytes % (auto) 29.1 % (10.0-50.0); Mean Corpuscular Hemoglobin 29.6 pg (28.0-32.0); Mean Corpuscular Hgb Conc. 35.4 g/dL (32.0-36.0); Mean Corpuscular Volume 83.7 fL (80.0-100.0); Monocytes # (auto) 0.6 10 ^3/uL (0-1.3); Monocytes % (auto) 7.7 % (0.0-12.0); Neutrophils # (auto) 4.5 10 ^3/uL (1.6-8.6); Neutrophils % (auto) 59.2 % (37.0-80.0); Nucleated Red Blood Cells % 0.2 %; Platelet Count (auto) 160 10^3/uL (140-450); Red Blood Cells 3.81 10^6/uL (4.5-5.90); Red Cell Distribution Width 13.3 % (11.8-14.3); White Blood Cell 7.6 10^3/uL (4.4-10.8)
[2025-01-23 07:19] LABS: Anion Gap 8 (5-15); Calcium 9.4 mg/dL (8.7-10.4); Carbon Dioxide 28 mmol/L (20-31); Chloride 101 mmol/L (98-107); Potassium 4.2 mmol/L (3.5-5.1); Sodium 137 mmol/L (136-145)
[2025-01-23 07:25] LABS: BUN/Creatinine Ratio 8.6 (10.0-20.0); Glucose 95 mg/dL (74-106)
[2025-01-23 07:26] LABS: Blood Urea Nitrogen 7 mg/dL (9-23)
--- NOTE | 2025-01-23 09:04 | DVHPN2 ---
Progress Note - Dictate Date Seen: Jan 23, 2025 Has the PT tested + for MRSA If YES, has PT been informed?: Yes Medical Necessity Reason Pt with a Central, PICC or Fol: No Subjective Patient does complain of pain in the upper body in the chest neck and the upper back. The [place] does not seem to be helping his pain. Had a bone biopsy done yesterday He is waiting to get his bone scan vital signs Vital Sign Date Time Temp Pulse Resp B/P (MAP) Pulse Ox O2 Delivery O2 Flow Rate FiO2 01/23/25 05:00 98.1 94 19 116/64 (81) 95 98.1 01/22/25 20:00 Room Air* 0 21 Total Intake and Output 01/22/25 01/22/25 01/23/25 15:00 23:00 07:00 Intake Total 1000 ml 543 ml Balance 1000 ml 543 ml medications Current Medications Medications Dose Ordered Sig/Dashawn Route Start Time Stop Time Status Last Admin Dose Admin Acetaminophen/ Hydrocodone Bitart 1 tab Q4HP PRN PO 01/20/25 21:30 01/22/25 21:34 1 TAB Ondansetron HCl 4 mg Q4HP PRN IV 01/20/25 21:30 Docusate Sodium 100 mg BIDPRN PRN PO 01/20/25 21:30 Acetaminophen 650 mg Q6HP PRN PO 01/20/25 21:30 Morphine Sulfate 2 mg Q4HPRN PRN IV 01/20/25 21:30 01/21/25 22:50 2 MG Enoxaparin Sodium 40 mg DAILY SC 01/22/25 10:00 01/22/25 10:12 40 MG Sodium Chloride 1,000 ml @ 150 mls/hr Q6H40M IV 01/21/25 14:30 01/22/25 21:33 150 MLS/HR Diagnostic Test (Pha) 1 strip ACHS 01/21/25 17:00 01/23/25 05:55 1 STRIP Insulin Human Regular ACHS SC 01/21/25 17:00 01/22/25 22:02 3 UNITS Dextrose 50 ml UD PRN IV 01/21/25 15:45 objective Head and neck: Unremarkable for any masses or neck nodes. Lungs: Clear Cardiovascular: Regular sinus rhythm Abdomen: No organomegaly, tenderness or ascites. Bowel sounds are present. Extremities: No clubbing edema cyanosis or calf tenderness. Skin: Unremarkable for petechia purpura ecchymosis Lymphadenopathy: None laboratory and microbiology Laboratory Tests 01/23/25 06:26 Test 01/23/25 06:26 Range/Units Serum Glucose 95 74-106 mg/dL Assessment/Plan 1. radiographically suspicious lytic and sclerotic lesion in the bones with low back pain and 6 lb of weight loss primary is not clear. May have some concern about the possibility of melanoma. Myeloma workup is pending the patient has constipation and some feeling of nausea MRCP was negative. CT of the chest abdomen pelvis except for the bony lesions was unremarkable He has a CEA of 10.4. Alpha-fetoprotein PSA CA 19-9 is pending. 01/22/2025: Had a bone marrow biopsy done Waiting for the bone scan Plan: For the pain I will give him morphine 2 mg IV q.4 hours p.r.n. for the pain Wait for the pathology report The bone scan pending The myeloma workup is pending also Dietary Evaluation Review Comments: 1) Advance diet as medically feasible 2) Consider CCHO 60gm 3) Continue current plan of care Expected Outcomes/Goals: Pt will meet >75% estimated needs Fu 2-3 days Plan discussed with: Patient RADHATAWANNA MD Jan 23, 2025 09:04
[2025-01-23 09:07] LABS: AFP Serum Tumor Marker 14.9 ng/mL (0.0-6.9); PSA Free 0.15 ng/mL; Prostate Specific Antigen 0.3 ng/mL (0.0-4.0)
--- NOTE | 2025-01-23 14:26 | DVH ---
EXAM: NM BONE WHOLE BODY History: mets Comparison Study: None available TECHNIQUE: At approximately 3 hours following intravenous administration 25.8 mCi of Tc-99m MDP, ante rior and posterior whole body planar images were obtained. FINDINGS: Increased radiotracer uptake throughout the thoracolumbar spine, sternum, and pelvis. Additional tiny focus in the right frontal bone. Increased radiotracer uptake seen in the cervical spine on the spot lateral images of the head and ne ck, nonspecific. Physiologic radiotracer distribution in the urinary bladder. IMPRESSION: 1. Increased radiotracer uptake seen in the thoracolumbar spine, sternum and pelvis is suspicious for osteoblastic metastatic disease. 2. Tiny focus in the right frontal bone, nonspecific. No definite correlate seen on MRI brain from 0 01/22/2025. Attention on follow-up. 3. Increased radiotracer uptake seen on the lateral spot views of the head and neck not appreciated i n the anterior and posterior whole-body views. Findings may reflect artifact, but cannot entirely ex clude osteoblastic activity. Attention on follow-up.
--- NOTE | 2025-01-23 16:52 | DVHPN2 ---
Progress Note Date Seen: Jan 23, 2025 Resident Creating Document: DOMINIC DEAL RESIDENT Has the PT tested + for MRSA If YES, has PT been informed?: Yes Medical Necessity Reason Pt with a Central, PICC or Fol: No Subjective Review of Systems The patient is a 29-year-old male who presented to [facility] ED with complaint of back pain. Patient reports symptoms progressively get worse with radiating pain to the abdomen, localized lower back pain rating 9/10 numeric scale, getting worse that prompted this visit. Abdomen/pelvis CT revealing pancreas appears somewhat enlarged and there is retroperitoneal fat trending; acute pancreatitis should be considered in the appropriate clinical setting. Patient does drink alcohol socially and on the weekends. Objective vital signs Vital Sign Date Time Temp Pulse Resp B/P (MAP) Pulse Ox O2 Delivery O2 Flow Rate FiO2 01/23/25 09:00 98.1 87 18 116/63 (80) 96 98.1 01/23/25 08:10 Room Air* 0 21 Total Intake and Output 01/22/25 01/22/25 01/23/25 15:00 23:00 07:00 Intake Total 1000 ml 543 ml Balance 1000 ml 543 ml medications Current Medications Medications Dose Ordered Sig/Dashawn Route Start Time Stop Time Status Last Admin Dose Admin Acetaminophen/ Hydrocodone Bitart 1 tab Q4HP PRN PO 01/20/25 21:30 01/23/25 13:30 1 TAB Ondansetron HCl 4 mg Q4HP PRN IV 01/20/25 21:30 Docusate Sodium 100 mg BIDPRN PRN PO 01/20/25 21:30 Acetaminophen 650 mg Q6HP PRN PO 01/20/25 21:30 Morphine Sulfate 2 mg Q4HPRN PRN IV 01/20/25 21:30 01/21/25 22:50 2 MG Enoxaparin Sodium 40 mg DAILY SC 01/22/25 10:00 01/23/25 09:41 40 MG Sodium Chloride 1,000 ml @ 150 mls/hr Q6H40M IV 01/21/25 14:30 01/23/25 13:23 150 MLS/HR Diagnostic Test (Pha) 1 strip ACHS 01/21/25 17:00 01/23/25 11:49 1 STRIP Insulin Human Regular ACHS SC 01/21/25 17:00 01/22/25 22:02 3 UNITS Dextrose 50 ml UD PRN IV 01/21/25 15:45 Examination General: Lucid, afebrile, mucosae are moist Cardiovascular: Normal S1 and S2. No murmurs, gallops or rubs Respiratory: Normal ventilation mechanics. Clear lung sounds on auscultation Abdomen: Soft, tenderness on epigastrium, rest of abdomen is nontender, no organomegaly, normal bowel sounds MSK/skin: Mobilizes 4 limbs. Skin is dry and warm. Presents tenderness on lumbar spine bilaterally and on flanks with percussion Neurological: Oriented in 3 spheres. No motor no sensitive deficits. 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 Alpha-fetoprotein PSA CA 19-9 is pending. 01/22/2025: Had a bone marrow biopsy done The myeloma workup is pending Thank you so much for the opportunity to consult on your patient. GI team will follow the patient. In case of any questions or concerns please feel free to reach out. Case discussed with Dr. Tameka Philippe. The patient and caregiver team agreed to the plan. Plan discussed with: Patient Dietary Evaluation Review Comments: 1) Advance diet as medically feasible 2) Consider CCHO 60gm 3) Continue current plan of care Expected Outcomes/Goals: Pt will meet >75% estimated needs Fu 2-3 days DOMINIC DEAL RESIDENT Jan 23, 2025 16:52
--- NOTE | 2025-01-23 17:01 | DVHPNRES ---
Progress Note Date Seen: Jan 23, 2025 Resident Creating Document: MARILYNN CHRISTOPHER RESIDENT Has the PT tested + for MRSA If YES, has PT been informed?: Yes Medical Necessity Reason Pt with a Central, PICC or Fol: No Subjective Review of Systems 29-year-old male patient with no past medical history who presented to the emergency department with a chief complaint of severe stabbing back pain progressively getting worse for the past 3 weeks. Patient reports losing weight approximately 6 lb as he had nausea episodes while eating. CT scan showed acute pancreatitis and several lytic and sclerotic lesions in the lumbar and pelvic bones. Bone scan result showed Increased radiotracer uptake seen in the thoracolumbar spine, sternum and pelvis is suspicious for osteoblastic metastatic disease. Carcinoembryonic antigen is elevated, but alpha-fetoprotein a PSA and CA 19-9 they are still pending, biopsies results on from the bone marrow are still pending for, patient will need bone biopsy . Myeloma workup is still pending. Patient will be started on morphine 2 mg IV q.4 hours for pain control. ROS: Constitutional: No: Fever, Chills, Sweats, Weakness, Malaise, Other Eyes: No: Pain, Vision change, Conjunctivae inflammation, Eyelid inflammation, Other, Redness ENT: No: Ear pain, Ear discharge, Nose pain, Nose discharge, Nose congestion, Mouth pain, Mouth swelling, Throat pain, Throat swelling, Other Respiratory: No Wheezing, Hemoptysis, Pleuritic Pain, Sputum, Wheezing, Other Cardiovascular: No: Palpitations, Orthopnea, Paroxysmal Noc. Dyspnea, Edema, Lt Headedness, Other Gastrointestinal: No: Nausea, Vomiting, Abdominal Pain, Diarrhea, Constipation, Melena, Hematochezia, Other Musculoskeletal: Yes: back pain No: other, neck pain, shoulder pain, arm pain, back pain, hand pain, leg pain, foot pain Neurological:; No: Weakness, Numbness, Incoordination, Change in speech, Confusion, Seizures Patient reports: No new complaints Changes from previous H/P or p: No Changes Objective vital signs Vital Sign Date Time Temp Pulse Resp B/P (MAP) Pulse Ox O2 Delivery O2 Flow Rate FiO2 01/23/25 09:00 98.1 87 18 116/63 (80) 96 98.1 01/23/25 08:10 Room Air* 0 21 Total Intake and Output 01/22/25 01/22/25 01/23/25 15:00 23:00 07:00 Intake Total 1000 ml 543 ml Balance 1000 ml 543 ml medications Current Medications Medications Dose Ordered Sig/Dashawn Route Start Time Stop Time Status Last Admin Dose Admin Acetaminophen/ Hydrocodone Bitart 1 tab Q4HP PRN PO 01/20/25 21:30 01/23/25 13:30 1 TAB Ondansetron HCl 4 mg Q4HP PRN IV 01/20/25 21:30 Docusate Sodium 100 mg BIDPRN PRN PO 01/20/25 21:30 Acetaminophen 650 mg Q6HP PRN PO 01/20/25 21:30 Morphine Sulfate 2 mg Q4HPRN PRN IV 01/20/25 21:30 01/21/25 22:50 2 MG Enoxaparin Sodium 40 mg DAILY SC 01/22/25 10:00 01/23/25 09:41 40 MG Sodium Chloride 1,000 ml @ 150 mls/hr Q6H40M IV 01/21/25 14:30 01/23/25 13:23 150 MLS/HR Diagnostic Test (Pha) 1 strip ACHS 01/21/25 17:00 01/23/25 11:49 1 STRIP Insulin Human Regular ACHS SC 01/21/25 17:00 01/22/25 22:02 3 UNITS Dextrose 50 ml UD PRN IV 01/21/25 15:45 Examination General Appearance: Alert, Oriented X3, Cooperative, No acute distress Respiratory: Clear to auscultation, Normal air movement Cardiovascular: Regular rate, Normal S1, Normal S2 Abdominal: Normal bowel sounds Extremities: No cyanosis, No edema, Normal pulses, No tenderness/swelling Skin: Skin color papules in the testicles, No rashes, No breakdown Neuro: Normal gait, Normal speech, Strength at 5/5 X4 ext, Normal tone, Sensation intact, Cranial nerves 3-12 NL, Reflexes 2+ Psych/Mental Status: Mental status NL, Mood NL laboratory and microbiology Laboratory Tests 01/23/25 06:26 Test 01/23/25 06:26 Range/Units Serum Glucose 95 74-106 mg/dL Problem List/Assessment/Plan Problem List/Assessment/Plan # Acute Pancreatitis ([place]'s criteria on admission: 0 points) Advance diet, full liquid diet. MRCP , unremarkable Consult # osteoblastic metastatic disease # ruled out brain metastasis # melanoma? #rule out bony metabolic pathology like hyperparathyroidism # severe back pain -CT guided needle biopsy, pending pathology results - Increased radiotracer uptake seen in the thoracolumbar spine, sternum and pelvis is suspicious for -tumor markers, pending -Heme-Onc consult -morphine 2 mg IV p.r.n. q.4 hours # Newly diagnosed prediabetes (hemoglobin A1c 5.9%) -Currently on mild insulin sliding scale -Evaluate on discharge requirement of p.o. medication versus healthy lifestyle habits # Transaminitis -Avoid hepatic toxic medication. # overweight, BMI 26 -Lifestyle modification counseling Case discussed with Dr. Gray Code status: Full code Goals of care discussed with the patient for 34 minutes Plan discussed with: Patient, Other (Mother) My Orders My Orders Orders - MARILYNN CHRISTOPHER RESIDENT Procedure Category Date Status Time Full Liq Diet DIET 01/22/25 Transmitted Dinner Protein Electro LAB 01/22/25 In Process Random Urine 11:27 Dietary Evaluation Review Comments: 1) Advance diet as medically feasible 2) Consider [facility] 60gm 3) Continue current plan of care Expected Outcomes/Goals: Pt will meet >75% estimated needs Fu 2-3 days Date of Service: Jan 23, 2025 Billing Provider: MAN GRAY MD Common Visit Codes: [id number] INP/OBS CARE(HIGH) MARILYNN CHRISTOPHER RESIDENT Jan 23, 2025 17:01 MAN GRAY MD Jan 29, 2025 15:02
[2025-01-24 01:00] VITALS: BP 113/57; PULSE 81; RESP 17; TEMP 96.8; O2SAT 96
[2025-01-24 05:00] VITALS: BP 106/64; PULSE 88; RESP 17; TEMP 97.9; O2SAT 96
[2025-01-24 08:10] VITALS: PULSE 74; RESP 18; O2SAT 99
[2025-01-24] MEDS: DOCUSATE SOD 100 MG CAP PO PRN (08:27)
[2025-01-24 09:00] VITALS: BP 114/54; PULSE 74; RESP 18; TEMP 98.6; O2SAT 99
--- NOTE | 2025-01-24 09:04 | DVHPN2 ---
Progress Note - Dictate Date Seen: Jan 24, 2025 Has the PT tested + for MRSA If YES, has PT been informed?: Yes Medical Necessity Reason Pt with a Central, PICC or Fol: No Subjective Patient does complain of pain in the upper body in the chest neck and the upper back. The [place] does not seem to be helping his pain. Had a bone biopsy done yesterday Bone scan was done vital signs Vital Sign Date Time Temp Pulse Resp B/P (MAP) Pulse Ox O2 Delivery O2 Flow Rate FiO2 01/24/25 05:00 97.9 88 17 106/64 (78) 96 97.9 01/23/25 20:00 Room Air* 0 21 Total Intake and Output 01/23/25 01/23/25 01/24/25 15:00 23:00 07:00 Intake Total 1767 ml 1750 ml Output Total 0 ml Balance 1767 ml 1750 ml medications Current Medications Medications Dose Ordered Sig/Dashawn Route Start Time Stop Time Status Last Admin Dose Admin Acetaminophen/ Hydrocodone Bitart 1 tab Q4HP PRN PO 01/20/25 21:30 01/24/25 08:28 1 TAB Ondansetron HCl 4 mg Q4HP PRN IV 01/20/25 21:30 Docusate Sodium 100 mg BIDPRN PRN PO 01/20/25 21:30 01/24/25 08:27 100 MG Acetaminophen 650 mg Q6HP PRN PO 01/20/25 21:30 Morphine Sulfate 2 mg Q4HPRN PRN IV 01/20/25 21:30 01/21/25 22:50 2 MG Enoxaparin Sodium 40 mg DAILY SC 01/22/25 10:00 01/24/25 08:27 40 MG Sodium Chloride 1,000 ml @ 150 mls/hr Q6H40M IV 01/21/25 14:30 01/24/25 04:15 150 MLS/HR Diagnostic Test (Pha) 1 strip ACHS 01/21/25 17:00 01/24/25 06:24 1 STRIP Insulin Human Regular ACHS SC 01/21/25 17:00 01/22/25 22:02 3 UNITS Dextrose 50 ml UD PRN IV 01/21/25 15:45 Morphine Sulfate 30 mg Q12HR PO 01/24/25 10:00 UNV objective Head and neck: Unremarkable for any masses or neck nodes. Lungs: Clear Cardiovascular: Regular sinus rhythm Abdomen: No organomegaly, tenderness or ascites. Bowel sounds are present. Extremities: No clubbing edema cyanosis or calf tenderness. Skin: Unremarkable for petechia purpura ecchymosis Lymphadenopathy: None laboratory and microbiology Laboratory Tests 01/23/25 06:26 Test 01/23/25 06:26 Range/Units Serum Glucose 95 74-106 mg/dL Assessment/Plan 1. radiographically suspicious lytic and sclerotic lesion in the bones with low back pain and 6 lb of weight loss primary is not clear. May have some concern about the possibility of melanoma. Myeloma workup is pending the patient has constipation and some feeling of nausea MRCP was negative. CT of the chest abdomen pelvis except for the bony lesions was unremarkable He has a CEA of 10.4. Alpha-fetoprotein PSA CA 19-9 is pending. 01/22/2025: Had a bone marrow biopsy done Bone scan showed increased radiotracer uptake in the thoracolumbar spine, sternum and pelvis. Tiny focus in the right frontal bone is nonspecific Plan: For the pain I will give him morphine 2 mg IV q.4 hours p.r.n. for the pain Start him on MS Contin 30 mg p.o. q.12 hours and may DC the IV AMS at the time of discharge Wait for the pathology report The myeloma workup is pending also The patient to follow up with me in two weeks after discharge Dietary Evaluation Review Comments: 1) Advance diet as medically feasible 2) Consider CCHO 60gm 3) Continue current plan of care Expected Outcomes/Goals: Pt will meet >75% estimated needs Fu 2-3 days Plan discussed with: Patient TAWANNA GARCIA MD Jan 24, 2025 09:04
[2025-01-24] MEDS: MORPHINE SULF 30 mg ER tab PO SCH (09:58)
[2025-01-24 11:07] LABS: Kappa Lite Chain Free Serum 18.3 mg/L (3.3-19.4)
[2025-01-24 13:00] VITALS: BP 106/60; PULSE 79; RESP 16; TEMP 98.1; O2SAT 94
--- NOTE | 2025-01-24 13:18 | DVHDSRES ---
Discharge Summary Date of Admission Resident Creating Document: MARILYNN CHRISTOPHER RESIDENT Jan 20, 2025 at 21:21 Date of Discharge: Jan 24, 2025 Admitting Diagnosis Acute pancreatitis Labs/Diagnostic Data: Laboratory Results Test 01/23/25 11:38 01/23/25 06:26 01/22/25 22:50 01/22/25 14:27 POC Glucose 101 mg/dl (70-106) White Blood Count 7.6 10^3/uL (4.4-10.8) Red Blood Count 3.81 10^6/uL (4.5-5.90) Hemoglobin 11.3 g/dL (13.5-17.5) Hematocrit 31.9 % (41.0-53.0) Mean Corpuscular Volume 83.7 fL (80.0-100.0) Mean Corpuscular Hemoglobin 29.6 pg (28.0-32.0) Mean Corpuscular Hemoglobin Concent 35.4 g/dL (32.0-36.0) Red Cell Distribution Width 13.3 % (11.8-14.3) Platelet Count 160 10^3/uL (140-450) Mean Platelet Volume 7.3 fL (6.9-10.8) Neutrophils (%) (Auto) 59.2 % (37.0-80.0) Lymphocytes (%) (Auto) 29.1 % (10.0-50.0) Monocytes (%) (Auto) 7.7 % (0.0-12.0) Eosinophils (%) (Auto) 3.3 % (0.0-7.0) Basophils (%) (Auto) 0.7 % (0.0-2.0) Neutrophils # (Auto) 4.5 10 ^3/uL (1.6-8.6) Lymphocytes # (Auto) 2.2 10 ^3/uL (0.4-5.4) Monocytes # (Auto) 0.6 10 ^3/uL (0-1.3) Eosinophils # (Auto) 0.3 10 ^3/uL (0-0.8) Basophils # (Auto) 0.1 10 ^3/uL (0-0.2) Nucleated Red Blood Cells 0.2 % Sodium Level 137 mmol/L (136-145) Potassium Level 4.2 mmol/L (3.5-5.1) Chloride Level 101 mmol/L (98-107) Carbon Dioxide Level 28 mmol/L (20-31) Anion Gap 8 (5-15) Blood Urea Nitrogen 7 mg/dL (9-23) Creatinine 0.81 mg/dL (0.700-1.30) Glomerular Filtration Rate Calc 121 mL/min (>90) BUN/Creatinine Ratio 8.6 (10.0-20.0) Serum Glucose 95 mg/dL (74-106) Calcium Level 9.4 mg/dL (8.7-10.4) Free [place] Light Chains, Quant 18.3 mg/L (3.3-19.4) Free [place]/Lambda Light Chain Ratio 1.12 (0.26-1.65) Test 01/22/25 05:20 01/21/25 14:27 01/21/25 03:33 01/20/25 11:13 Differential Total Cells Counted 100.0 (100) Neutrophils % (Manual) 59 (37.0-80.0) Band Neutrophils % (Manual) 3 Lymphocytes % (Manual) 27 (10.0-50.0) Monocytes % (Manual) 8 (0-12) Eosinophils % (Manual) 3 (0-7) Basophils % (Manual) 0 (0.0-2.0) Metamyelocytes % (manual) 0 Myelocytes % (Manual) 0 Promyelocytes % (Manual) 0 Blast Cells % (Manual) 0 Reactive Lymphocytes 0 Platelet Estimate Adequate Red Blood Cell Morphology Normal Total Bilirubin 0.6 mg/dL (0.2-1.0) Aspartate Amino Transferase (AST) 18 U/L (13-40) Alanine Aminotransferase (ALT) 42 U/L (7-40) Alkaline Phosphatase 630 U/L (46-116) Lipase 214 U/L (12-53) Carcinoembryonic Antigen 10.74 ng/mL (<=5.0) Parathyroid Hormone (Intact) 40.4 pg/mL (18.4-80.1) Tumor Marker Alpha Fetoprotein 14.9 ng/mL (0.0-6.9) Free Prostate Specific Antigen 0.15 ng/mL (N/A) Percent Free Prostate Specific Ag 50.0 % (.) Prostate Specific Antigen Total 0.3 ng/mL (0.0-4.0) Prothrombin Time 11.9 sec (9.3-11.8) Prothrombin Time INR 1.14 (0.9-1.15) Activated Partial Thromboplast Time 26.8 SEC (24.5-34.5) Hemoglobin A1c 5.9 % A1C (<5.7) Phosphorus Level 4.9 mg/dL (2.4-5.1) Magnesium Level 2.2 mg/dL (1.6-2.6) Lactate Dehydrogenase 223 U/L (120-246) Triglycerides Level 90 mg/dL (< 150) Cholesterol Level 156 mg/dL (< 200) LDL Cholesterol 86 mg/dL (< 100) HDL Cholesterol 55 mg/dL (40-59) Vitamin B12 Level 498 pg/mL (211-911) Vitamin D 25-Hydroxy 18.4 ng/mL (30.0-100) Thyroid Stimulating Hormone (TSH) 2.38 uIU/mL (0.55-4.78) Plasma/Serum Blood Alcohol < 3.0 mg/dL (<10) Lactic Acid Level 1.1 mmol/L (0.4-2.0) Creatine Kinase 51 U/L (46-171) Test 01/20/25 10:58 Urine Color Yellow (Yellow) Urine Clarity Clear (Clear) Urine pH 6.0 (5.0-9.0) Urine Specific [place] 1.032 (1.001-1.035) Urine Protein Trace (Negative) Urine Ketones Trace (Negative) Urine Blood Trace /uL (Negative) Urine Nitrite Negative (Negative) Urine Bilirubin Negative (Negative) Urine Urobilinogen 2 mg/dL (Negative) Urine Leukocyte Esterase Negative /uL (Negative) Urine RBC 2 /hpf (0 - 3) Urine Microscopic WBC 1 /HPF (0-3) Urine Squamous Epithelial Cells Few /hpf (<5) Urine Bacteria None seen /hpf (None Seen) Urine Glucose Normal mg/dL (Normal) Urine Opiates Screen Neg (NEGATIVE) Urine Fentanyl Screen Neg (NEGATIVE) Urine Barbiturates Screen Neg (NEGATIVE) Urine Phencyclidine Screen Neg (NEGATIVE) Urine Amphetamines Screen Neg (NEGATIVE) Urine Benzodiazepines Screen Neg (NEGATIVE) Urine Cocaine Screen Neg (NEGATIVE) Urine Cannabinoids Screen Neg (NEGATIVE) Other Laboratory Tests 01/23/25 06:26 Brief Hx & Hospital Course: HPI: 29-year-old male patient with no past medical history who presented to emergency department with a chief complaint of severe starting back pain progressively getting worse for the past 3 weeks. The patient reports also losing weight approximately 6 lb as she had nausea episodes while eating. Hospital course: Abdomen pelvis CT revealed pancreas that appears somewhat enlarged and there was retroperitoneal fat stranding that was consistent for acute pancreatitis, patient was started on treatment and improve after a couple of days. CT scan was performed and showed increased radio tracer uptake seen in the thoracolumbar spine started on pelvis that which was suspicious for osteoblastic metastatic disease carcinoembryonic antigen was also elevated, myeloma were was done and it became negative. Patient was continued on pain control with morphine 2 mg IV q.4 hours . Hematology team evaluated the patient and the patient underwent MRI of the brain an MRCP all of the became unremarkable. Bone scan was performed that showed increased radiotracer uptake in the thoracolumbar spine, sternum and pelvis. biopsies were taken from bone marrow and bone, but pathology reports still pending. Patient was told to follow up with oncologist Dr. Yee Barcenas in the outpatient in 2 weeks after discharge. Disposition: Discharged to home Operations or Procedures [place] [address] Ph: [phone] DIAGNOSTIC IMAGING Diagnostic Imaging Report : [id number] Signed PATIENT: KAMARI HENLEYCCT: [id number] UNIT: [id number] : 1995 LOC: [facility] ROOM / BED: [address] [place] [address] AGE / SEX: 29 / M ADM STATUS: ADM IN SERVICE 0800 ORDERING PHYSICIAN: YEE BARCENAS MD PROCEDURE(s): BONNM - BONE WHOLE BODY REASON: mets ORDER NUMBER(s): [id number], ACCESSION NUMBER(s): [id number] EXAM: NM BONE WHOLE BODY History: mets Comparison Study: None available TECHNIQUE: At approximately 3 hours following intravenous administration 25.8 mCi of Tc-99m MDP, anterior and posterior whole body planar images were obtained. FINDINGS: Increased radiotracer uptake throughout the thoracolumbar spine, sternum, and pelvis. Additional tiny focus in the right frontal bone. Increased radiotracer uptake seen in the cervical spine on the spot lateral images of the head and neck, nonspecific. Physiologic radiotracer distribution in the urinary bladder. IMPRESSION: 1. Increased radiotracer uptake seen in the thoracolumbar spine, sternum and pelvis is suspicious for osteoblastic metastatic disease. 2. Tiny focus in the right frontal bone, nonspecific. No definite correlate seen on MRI brain from 01/22/2025. Attention on follow-up. 3. Increased radiotracer uptake seen on the lateral spot views of the head and neck not appreciated in the anterior and posterior whole-body views. Findings may reflect artifact, but cannot entirely exclude osteoblastic activity. Attention on follow-up. ATED BY: JUJU BARRETT DO DICTATED DATE/TIME: 01/23/251422 SIGNED BY: JUJU BARRETT DO SIGNED DATE/TIME: 01/23/251422 CC: [place] [address] Ph: [phone] DIAGNOSTIC IMAGING Diagnostic Imaging Report : [id number] Signed PATIENT: KAMARI HENLEYCCT: [id number] UNIT: [id number] : 1995 LOC: [facility] ROOM / BED: [address] [place] [address] AGE / SEX: 29 / M ADM STATUS: ADM IN SERVICE 52 ORDERING PHYSICIAN: NEFTALI ACUÑA MD PROCEDURE(s): MRCP - MRCP MRI REASON: pancreatitis; elevated alk phosphatase; bony mets? ORDER NUMBER(s): [id number], ACCESSION NUMBER(s): [id number] MRCP WITHOUT CONTRAST CLINICAL HISTORY: pancreatitis; elevated alk phosphatase; bony mets TECHNIQUE: Multiplanar, multisequence MRCP and MR images of the abdomen without contrast. 3D MRCP was performed using maximum intensity projection reconstruction on an independent workstation under concurrent supervision. Comparison: CT abdomen 01/21/2025 FINDINGS: The gallbladder appears within normal limits without obvious gallstones. There is no intrahepatic or extrahepatic biliary ductal dilatation. The common duct measures 4 mm in maximum diameter there is tapering of the distal duct at the level of the ampulla. There is no pancreatic ductal dilatation. The liver, spleen, pancreas, kidneys, and adrenal glands appear normal. There is no free fluid or free air. The visualized small and large bowel loops demonstrate normal caliber. The stomach grossly appears unremarkable. The visualized lung bases are clear. The osseous structures and soft tissues appear within normal limits. IMPRESSION: 1. Unremarkable noncontrast MRI abdomen and MRCP. HS:Y ATED BY: CARLY TAYLOR MD DICTATED DATE/TIME: 01/22/251101 SIGNED BY: CARLY TAYLOR MD SIGNED DATE/TIME: 01/22/251101 CC: [place] [address] Ph: [phone] DIAGNOSTIC IMAGING Diagnostic Imaging Report : [id number] Signed PATIENT: KAMARI HENLEYCCT: [id number] UNIT: [id number] : 1995 LOC: [facility] ROOM / BED: [address] [place] [address] AGE / SEX: 29 / M ADM STATUS: ADM IN SERVICE 33 ORDERING PHYSICIAN: MARILYNN CHRISTOPHER RESIDENT PROCEDURE(s): PL2CT - PELVIS WO CONTRAST REASON: BONE MARROW BX ORDER NUMBER(s): [id number], ACCESSION NUMBER(s): [id number] PROCEDURE: CT GUIDED BONE MARROW BIOPSY HISTORY: BONE MARROE BX DOCUMENTATION: Informed consent was obtained and a procedural time out was performed. TECHNIQUE: The skin over the right iliac bone was sterilely prepped, draped, and infiltrated with 1% lidocaine. Using CT guidance, a 11-gauge coaxial needle was directed into right iliac bone . The 12-gauge OnControl biopsy needle was inserted coaxially and 1 core biopsy specimens were obtained. 20 cc of bone marrow aspirate and a bone marrow core was obtained. The coaxial needle was then removed and hemostasis was achieved with manual compression. Sterile dressings were applied. FINDINGS: Limited CT imaging demonstrates right iliac bone appearsa normal . Imaging confirms the needle tip within right iliac bone . Post-biopsy CT imaging showed no apparent complication. IMPRESSION: SUCCESSFUL CT GUIDED BONE MARROW BIOPSY. PLEASE FOLLOW UP WITH PATHOLOGY FOR FINAL RESULTS. Procedure by Dr. Galvan Radiation dose information: CTDI vol 185.4 mGy; DLP mGycm [address] are the volume Computed Tomography (CT) Dose Index (CTDIvol) and the Dose Length Product (DLP), and are measured in units of mGy and mGy-cm, respectively. These indicators are not patient dose, but values generated from the CT scanner acquisition factors. The report includes radiation exposure data for exposures received during this examination. If multiple reports are produced from this examination, the exposure data is duplicated in each report. The exposure data reported is indicative, but not determinative, of the radiation dose received by this patient. ATED BY: MACIEL LANGSTON MD DICTATED DATE/TIME: 01/22/25 1505 SIGNED BY: MACIEL LANGSTON MD SIGNED DATE/TIME: 01/22/25 1505 CC: [place] [address] Ph: [phone] DIAGNOSTIC IMAGING Diagnostic Imaging Report : [id number] Signed PATIENT: KAMARI HENLEYCCT: [id number] UNIT: [id number] : 1995 LOC: [facility] ROOM / BED: [address] [place] [address] AGE / SEX: 29 / M ADM STATUS: ADM IN SERVICE 1333 ORDERING PHYSICIAN: MARILYNN CHRISTOPHER RESIDENT PROCEDURE(s): GA - CT GUIDANCE FOR NEEDLE PLACEME REASON: BONE MARROE BX ORDER NUMBER(s): [id number], ACCESSION NUMBER(s): [id number] PROCEDURE: CT GUIDED BONE MARROW BIOPSY HISTORY: BONE MARROE BX DOCUMENTATION: Informed consent was obtained and a procedural time out was performed. TECHNIQUE: The skin over the right iliac bone was sterilely prepped, draped, and infiltrated with 1% lidocaine. Using CT guidance, a 11-gauge coaxial needle was directed into right iliac bone . The 12-gauge OnControl biopsy needle was inserted coaxially and 1 core biopsy specimens were obtained. 20 cc of bone marrow aspirate and a bone marrow core was obtained. The coaxial needle was then removed and hemostasis was achieved with manual compression. Sterile dressings were applied. FINDINGS: Limited CT imaging demonstrates right iliac bone appearsa normal . Imaging confirms the needle tip within right iliac bone . Post-biopsy CT imaging showed no apparent complication. IMPRESSION: SUCCESSFUL CT GUIDED BONE MARROW BIOPSY. PLEASE FOLLOW UP WITH PATHOLOGY FOR FINAL RESULTS. Procedure by Dr. Galvan Radiation dose information: CTDI vol 185.4 mGy; DLP mGycm [address] are the volume Computed Tomography (CT) Dose Index (CTDIvol) and the Dose Length Product (DLP), and are measured in units of mGy and mGy-cm, respectively. These indicators are not patient dose, but values generated from the CT scanner acquisition factors. The report includes radiation exposure data for exposures received during this examination. If multiple reports are produced from this examination, the exposure data is duplicated in each report. The exposure data reported is indicative, but not determinative, of the radiation dose received by this patient. ATED BY: MACIEL LANGSTON MD DICTATED DATE/TIME: 01/22/251504 SIGNED BY: MACIEL LANGSTON MD SIGNED DATE/TIME: 01/22/251504 CC: [place] [address] Ph: [phone] DIAGNOSTIC IMAGING Diagnostic Imaging Report : [id number] Signed PATIENT: KAMARI HENLEYCCT: [id number] UNIT: [id number] : 1995 LOC: [facility] ROOM / BED: [address] [place] [address] AGE / SEX: 29 / M ADM STATUS: ADM IN SERVICE 1320 ORDERING PHYSICIAN: YEE BARCENAS MD PROCEDURE(s): [facility] - BRAIN HEAD WO W CONTRAST REASON: ORDER NUMBER(s): [id number], ACCESSION NUMBER(s): [id number] MRI BRAIN WITH CONTRAST CLINICAL HISTORY: r/o meta TECHNIQUE: Multiplanar multisequence images of the brain were obtained prior to and following intravenous administration of contrast. 10/10 cc of gadavist contrast from a prefilled syringe was administered intravenously. Comparison: None FINDINGS: There is no restricted diffusion. The lange and white matter signal is appropriate. There is no pathologic enhancement. There is no evidence of hemorrhage, mass, mass effect or midline shift. There is no hydrocephalus or extra-axial fluid collection. The visualized intracranial vasculature demonstrates appropriate flow-voids. The midline structures appear unremarkable. The craniocervical junction is within normal limits. The calvarium demonstrates normal marrow signal. The paranasal sinuses and mastoid air cells are clear. IMPRESSION: 1. Unremarkable MRI brain. There is no evidence of intracranial metastasis. HS:Y ATED BY: CARLY TAYLOR MD DICTATED DATE/TIME: 01/22/251432 SIGNED BY: CARLY TAYLOR MD SIGNED DATE/TIME: 01/22/251432 CC: [place] [address] Ph: [phone] DIAGNOSTIC IMAGING Diagnostic Imaging Report : [id number] Signed PATIENT: KAMARI HENLEYCCT: [id number] UNIT: [id number] : 1995 LOC: [facility] ROOM / BED: [address] [place] [address] AGE / SEX: 29 / M ADM STATUS: ADM IN SERVICE 1306 ORDERING PHYSICIAN: TAMIA MCLAUGHLIN RESIDENT PROCEDURE(s): CAPIV - CT CHEST/AB/PL W CON- IV ONLY REASON: lytic lesions concerning for metastasis, r/o pancreatic canc ORDER NUMBER(s): [id number], ACCESSION NUMBER(s): [id number] Exam: CT CT CHEST/AB/PL W CON- IV ONLY History: lytic lesions concerning for metastasis, r/o pancreatic canc COMPARISON: None Technique: Multidetector spiral CT of the abdomen and pelvis was performed from lung bases to pubic symphysis. Intravenous contrast was administered during this examination. Portal venous imaging was obtained. Axial, coronal and sagittal multiplanar reformats were performed by the technologist on a separate workstation. Radiation Dose : 1. Abdomen/Pelvis: CTDIvol 7.4mGy, DLP 589.71 mGy*cm. Findings: Lung Bases: No acute or significant lung base finding. Normal heart size. No pleural or pericardial effusion. Liver: The liver is normal in size. No focal lesions. Normal hepatic vascular enhancement. Gallbladder and Biliary Tree: Unremarkable Spleen: Unremarkable Pancreas: Diffusely edematous appearance to the pancreas with peripancreatic inflammatory change. Adrenal Glands: Unremarkable Kidneys: No hydronephrosis. Bladder: Unremarkable Bowel: The stomach is grossly normal in appearance. Small bowel and colon are normal in caliber and distribution. The appendix is not visualized; however, no secondary findings of acute appendicitis identified. Ascites: Absent Lymphadenopathy: No mesenteric, retroperitoneal or periportal lymphadenopathy. Abdominal Wall and Mesentery: Unremarkable. Vasculature: The visualized abdominal aorta is normal in size and caliber. Abdominal and pelvic vessels demonstrate normal enhancement. Pelvic Organs: Unremarkable Musculoskeletal: No acute fracture or dislocation. Diffuse mixed lytic and sclerotic appearance to the osseous structures. IMPRESSION: Diffuse edematous appearance to the pancreas with surrounding peripancreatic inflammatory change. Findings likely represent acute uncomplicated pancreatitis. Findings are not significantly changed since 01/18/2025. Clinical correlation advised. Unchanged indeterminate diffuse mixed lytic and sclerotic appearance of the visualized osseous structures of the thorax, abdomen and pelvis. Metastatic disease or underlying metabolic process such as chronic renal dysfunction are within differential considerations. Clinical correlation advised. Radiation optimization: All CT scans at this facility use at least one of these dose optimization techniques: automated exposure control mA and/or kV adjustment per patient size (includes targeted exams where dose is matched to clinical indication) or iterative reconstruction. ATED BY: JEANCARLOS SHAH MD DICTATED DATE/TIME: 01/21/251445 SIGNED BY: JEANCARLOS SHAH MD SIGNED DATE/TIME: 01/21/251445 CC: [place] [address] Ph: [phone] DIAGNOSTIC IMAGING Diagnostic Imaging Report : [id number] Signed PATIENT: KAMARI HENLEYCCT: [id number] UNIT: [id number] : 1995 LOC: [facility] ROOM / BED: [address] [place] [address] AGE / SEX: 29 / M ADM STATUS: ADM IN SERVICE 1101 ORDERING PHYSICIAN: TAMIA MCLAUGHLIN RESIDENT PROCEDURE(s): ABDL - ABDOMEN LIMITED REASON: cholelithiasis ORDER NUMBER(s): [id number], ACCESSION NUMBER(s): [id number] Procedure: US ABDOMEN LIMITED 01/21/2025 11:22 AM Indication: cholelithiasis Comparison: None Technique: Grayscale and color images of the right upper quadrant were obtained. FINDINGS: ASCITES: None. LIVER: Liver measures 15.7 cm in craniocaudal. Liver parenchyma is homogeneous in echotexture. No focal lesion is identified. No intrahepatic ductal dilatation. Normal directional flow is seen in the portal vein. GALLBLADDER: No gallstones. No gallbladder wall edema or pericholecystic fluid. Gallbladder wall thickness is 0.3 cm. Sonographic Catalan's sign is negative. COMMON BILE DUCT: 0.3 cm in caliber. PANCREAS: Visualized portions are unremarkable. RIGHT KIDNEY: 11.8 cm in length. No hydronephrosis. No lesions identified. AORTA, IVC: Visualized portions are unremarkable. OTHER: None. IMPRESSION: 1. No sonographic evidence for acute abnormality in the right upper quadrant. No cholelithiasis or evidence of cholecystitis. ATED BY: MADDI MUHAMMAD MD DICTATED DATE/TIME: 01/21/251207 SIGNED BY: MADDI MUHAMMAD MD SIGNED DATE/TIME: 01/21/251207 CC: [place] [address] Ph: [phone] DIAGNOSTIC IMAGING Diagnostic Imaging Report : [id number] Signed PATIENT: KAMARI HENLEYCCT: [id number] UNIT: [id number] : 1995 LOC: ER ROOM / BED: / AGE / SEX: 29 / M ADM STATUS: REG ER SERVICE 1052 ORDERING PHYSICIAN: SAMEER UMANA DO PROCEDURE(s): ABPL - CT AB PEL WO CON-NO ORAL OR IV REASON: B/L flank pain ORDER NUMBER(s): [id number], ACCESSION NUMBER(s): [id number] Box Exam: CT CT AB PEL WO CON-NO ORAL OR IV History: B/L flank pain Comparison Study: None available at time of dictation. Technique: Multidetector spiral CT of the abdomen and pelvis was performed from lung bases to pubic symphysis. Imaging was performed without intravenous contrast. Coronal and sagittal multiplanar reformats were obtained from the axial data set by the technologist. Radiation Dose : 1. Abdomen/Pelvis: CTDIvol 6.93 mGy, DLP 342.01 mGy*cm. Findings: Evaluation of vasculature and solid organs is limited due to lack of intravenous contrast use. Lung Bases: Lung bases are clear. Visualized portions of the heart and pericardium are unremarkable. Liver: The liver is normal in size. No focal lesions. Gallbladder and Biliary Tree: The gallbladder is unremarkable. No intrahepatic or extrahepatic biliary ductal dilatation. Spleen: Unremarkable Pancreas: Pancreas appears slightly enlarged. There is retroperitoneal fat stranding. Adrenal Glands: Unremarkable Kidneys: Kidneys are unremarkable without calculi or hydronephrosis. GI tract: The stomach is grossly normal in appearance. No evidence of small bowel wall thickening or abnormal dilatation to suggest bowel obstruction. The colon is unremarkable. The appendix is not visualized, however no inflammatory changes in the right lower quadrant to suggest acute appendicitis. Peritoneum/mesentery/retroperitoneum. No evidence of free intraperitoneal air. No ascites. Lymph nodes: Increased number of retroperitoneal lymph nodes which are not enlarged. Abdominal Wall: Unremarkable. Vasculature: The visualized abdominal aorta is normal in size and caliber. Evaluation of abdominal and pelvic vessels is limited due to lack of intravenous contrast. Urinary Bladder: Grossly unremarkable for degree of distention. Pelvic Organs: Unremarkable Musculoskeletal: Innumerable lytic lesions throughout the spine. Innumerable sclerotic lesions in the bony pelvis. No acute fracture. IMPRESSION: 1. Pancreas appears somewhat enlarged and there is retroperitoneal fat stranding. Acute pancreatitis should be considered in the appropriate clinical setting. Correlation with laboratory values recommended. 2. Innumerable lytic and sclerotic lesions throughout the lumbar spine and the bony pelvis, concerning for metastatic disease. If there is no known cancer history, CT of the chest, abdomen and pelvis with intravenous and oral contrast is recommended for further evaluation. 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 # ruled out brain metastasis #rule out bony metabolic pathology like hyperparathyroidism # chronic severe back pain # Newly diagnosed prediabetes (hemoglobin A1c 5.9%) # Transaminitis # overweight, BMI 26 Discharge Disposition: Home SNF Discharge Will this Physician continue t: No Discharge Instruct/Medications Diet: Regular Activity: No Restrictions, As Tolerated Follow Up/Referral: follow up with pcp within 2 wks follow up with dr barcenas in 2 weeks Medications: script to pharmacy Discharge Statement: "Patient was advised to return to the ER or call 911 if any headaches, dizziness, shortness of breath, chest pain, abdominal pain, bleeding, fevers, or worsening of medical condition. Patient was counseled about treatment plan, medications, possible side effects, patientverbalized understanding. All questions were answered to the best of my ability. This discharge took greater then 30 minutes in planning, reviewing documentation, counseling the patient, and discussing with other team members." ASSESSMENT ASSESSMENT Assessment acute pancreatitis bone metastatis Date of Service: Jan 24, 2025 Billing Provider: MAN GRAY MD Common Visit Codes: 57717-UKL/OBS DISCH DAY >30min MARILYNN CHRISTOPHER RESIDENT Jan 24, 2025 13:18 MAN GRAY MD Jan 29, 2025 15:33
--- NOTE | 2025-01-24 14:12 | DVHPN2 ---
Progress Note Date Seen: Jan 24, 2025 Resident Creating Document: DOMINIC DEAL RESIDENT Has the PT tested + for MRSA If YES, has PT been informed?: Yes Medical Necessity Reason Pt with a Central, PICC or Fol: No Subjective Review of Systems Patient seen and examined at bedside, patient states he is feeling better very mild abdominal pain. Objective vital signs Vital Sign Date Time Temp Pulse Resp B/P (MAP) Pulse Ox O2 Delivery O2 Flow Rate FiO2 01/24/25 13:00 98.1 79 16 106/60 (75) 94 98.1 01/24/25 08:10 Room Air* 0 21 Total Intake and Output 01/23/25 01/23/25 01/24/25 15:00 23:00 07:00 Intake Total 1767 ml 1750 ml Output Total 0 ml Balance 1767 ml 1750 ml medications Current Medications Medications Dose Ordered Sig/Dashawn Route Start Time Stop Time Status Last Admin Dose Admin Acetaminophen/ Hydrocodone Bitart 1 tab Q4HP PRN PO 01/20/25 21:30 01/24/25 08:28 1 TAB Ondansetron HCl 4 mg Q4HP PRN IV 01/20/25 21:30 Docusate Sodium 100 mg BIDPRN PRN PO 01/20/25 21:30 01/24/25 08:27 100 MG Acetaminophen 650 mg Q6HP PRN PO 01/20/25 21:30 Morphine Sulfate 2 mg Q4HPRN PRN IV 01/20/25 21:30 01/21/25 22:50 2 MG Enoxaparin Sodium 40 mg DAILY SC 01/22/25 10:00 01/24/25 08:27 40 MG Sodium Chloride 1,000 ml @ 150 mls/hr Q6H40M IV 01/21/25 14:30 01/24/25 09:54 150 MLS/HR Diagnostic Test (Pha) 1 strip ACHS 01/21/25 17:00 01/24/25 11:44 1 STRIP Insulin Human Regular ACHS SC 01/21/25 17:00 01/22/25 22:02 3 UNITS Dextrose 50 ml UD PRN IV 01/21/25 15:45 Morphine Sulfate 30 mg Q12HR PO 01/24/25 10:00 01/24/25 09:58 30 MG Examination General: Lucid, afebrile, mucosae are moist Cardiovascular: Normal S1 and S2. No murmurs, gallops or rubs Respiratory: Normal ventilation mechanics. Clear lung sounds on auscultation Abdomen: Soft, tenderness on epigastrium, rest of abdomen is nontender, no organomegaly, normal bowel sounds MSK/skin: Mobilizes 4 limbs. Skin is dry and warm. Presents tenderness on lumbar spine bilaterally and on flanks with percussion Neurological: Oriented in 3 spheres. No motor no sensitive deficits. 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 Alpha-fetoprotein PSA CA 19-9 is pending. 01/22/2025: Had a bone marrow biopsy done Appreciate Heme-Onc follow up Thank you so much for the opportunity to consult on your patient. GI team will follow the patient. In case of any questions or concerns please feel free to reach out. Case discussed with Dr. Tameka Philippe. The patient and caregiver team agreed to the plan. Plan discussed with: Patient Dietary Evaluation Review Comments: 1) Advance diet as medically feasible 2) Consider CCHO 60gm 3) Continue current plan of care Expected Outcomes/Goals: Pt will meet >75% estimated needs Fu 2-3 days DOMINIC DEAL RESIDENT Jan 24, 2025 14:12
[2025-01-24 14:35] VITALS: BP 114/54; PULSE 74; RESP 18; TEMP 36.7; O2SAT 99
[2025-01-24] MEDS ORDERED: HYDR-4902 PO (14:59)
[2025-01-24] MEDS ORDERED: MORP15TA PO (14:59)
[2025-01-25 15:07] LABS: Albumin 2.8 g/dL (2.9-4.4); Alpha-1-Globulin 0.3 g/dL (0.0-0.4); Alpha-2-Globulin 1.1 g/dL (0.4-1.0); Gamma Globulin 1.7 g/dL (0.4-1.8); Globulin Total 4.3 g/dL (2.2-3.9); Protein Total Serum 7.1 g/dL (6.0-8.5)
[2025-01-26 08:07] LABS: Albumin Urine Note: % (.); Protein Total Urine <4.0 mg/dL (Not Estab.)
== END 2025-01-24 15:15 | disposition home or self-care (01) | DRG 343 ==
LOC: ER 10:30 → OVERFLOW 21:21 → WEST WING 01-21 04:22
PROVIDERS: ADMIT Student in an Organized Health Care Education/Training Program; ATTEND Emergency Medicine
PROC: 07DR3ZX Extraction of Iliac Bone Marrow, Percutaneous Approach, Diagnostic (ICD-10-PCS; principal; 2025-01-22)
DX: C79.51 Secondary malignant neoplasm of bone (principal); K85.90 Acute pancreatitis without necrosis or infection, unspecified; D72.829 Elevated white blood cell count, unspecified; E21.3 Hyperparathyroidism, unspecified; E66.3 Overweight; K59.00 Constipation, unspecified; R74.01 Elevation of levels of liver transaminase levels; R73.03 Prediabetes; M54.50 Low back pain, unspecified; Z79.1 Long term (current) use of non-steroidal anti-inflammatories (NSAID); Z79.891 Long term (current) use of opiate analgesic; Z79.899 Other long term (current) drug therapy; Z79.4 Long term (current) use of insulin; Z68.26 Body mass index [BMI] 26.0-26.9, adult; Z87.19 Personal history of other diseases of the digestive system
CPT/HCPCS: 10005; 36415; 70553; 71260; 72192; 74176; 74177; 74181; 76705; 77012; 78306; 80048; 80053; 80061; 80307; 80320; 81001; 82105; 82306; 82378; 82550; 82607; 82962; 83036; 83521; 83605; 83615; 83690; 83735; 83970; 84100; 84154; 84155; 84156; 84165; 84166; 84443; 85007; 85025; 85027; 85610; 85730; 86301; 96365; 96366; 99291; G0378; J1815; J2250; J2543

== ENCOUNTER 2025-02-02 19:27 | Inpatient (IN) | payer OTHER ==
[~2025-02-02] VITALS: Ht 177.8 cm; Wt 79.1 kg
[~2025-02-02 19:27] MED LIST changes: -IBU600T PO; -METH4PAK PO; +MORP15TA PO; -TIZA-142 PO
--- NOTE | 2025-02-02 19:46 | ED.PDOC ---
HPI Comments 29-year-old male came to emergency room due to chest pains. Patient was discharged here 9 days ago and diagnosed with Acute pancreatitis. Earlier today, patient started having constant diffuse chest pains, 10/10 intensity, associated with dyspnea on exertion and headaches. [place] taken has offered no relief. Chief Complaint: Chest Pain Time Seen by MD: 19:45 Primary Care Provider: n/a Reviewed Notes: Nurses Notes Allergies: Coded Allergies: NO KNOWN ALLERGIES (Unverified , 05/25/23) Home Meds Active Scripts Hydrocodone-Acetaminophen (Hydrocodone Bitartrate/AC 5-325 mg) 1 Tab Tab, 1 TAB PO TIDP PRN for 5 Days, #15 TAB Prov:MAN GRAY MD 01/24/25 Morphine Sulfate (Morphine Sulfate) 15 Mg Tab, 15 MG PO BID for 5 Days, #10 TAB Prov:MAN GRAY MD 01/24/25 Information Source: Patient Mode of Arrival: Ambulatory Severity: Moderate Timing: Hours Duration: Since onset Prehospital treatment: 12 Lead EKG Location: Chest (R), Chest (L) Radiation: No Radiation Quality: Pressure Onset: With Light Exertion Cardiac Risk Factors: None PE Risk Factors: None History of: None Associated Signs and Symptoms: SOB Past Medical History PAST MEDICAL HISTORY: Cancer Past Medical History (Other): Pancreatitis Surgical History: Appendectomy Family History Family History: Reviewed,noncontributory to illness Social History Smoker: Non-Smoker Alcohol: Denies ETOH Use Drugs: Denies Drug Use Lives In: Home Constitutional: denies: chills, diaphoresis, fatigue, fever, malaise, sweats, weakness, others EENTM: denies: blurred vision, double vision, ear bleeding, ear discharge, ear drainage, ear pain, ear ringing, eye pain, eye redness, hearing loss, mouth pain, mouth swelling, nasal discharge, nose bleeding, nose congestion, nose pain, photophobia, tearing, throat pain, throat swelling, voice changes, others Respiratory: denies: cough, hemoptysis, orthopnea, SOB at rest, shortness of breath, SOB with excertion, stridor, wheezing, others Cardiovascular: reports: chest pain, Dyspnea on exertion; denies: dizzy spells, diaphoresis, edema, irregular heart beat, left arm pain, lightheadedness, palpitations, PND, syncope, others Gastrointestinal: denies: abdomen distended, abdominal pain, blood streaked bowels, constipated, diarrhea, dysphagia, difficulty swallowing, hematemesis, melena, nausea, poor appetite, poor fluid intake, rectal bleeding, rectal pain, vomiting, others Genitourinary: denies: burning, dysuria, flank pain, frequency, hematuria, incontinence, penile discharge, penile sore, pain, testicle pain, testicle swelling, urgency, others Neurological: reports: headache; denies: dizziness, fainting, left sided numbness, left sided weakness, numbness, paresthesia, pre-existing deficit, right sided numbness, right sided weakness, seizure, speech problems, tingling, tremors, weakness, others Musculoskeletal: denies: back pain, gout, joint pain, joint swelling, muscle pain, muscle stiffness, neck pain, others Integumetry: denies: bruises, change in color, change in hair/nails, dryness, laceration, lesions, lumps, rash, wounds, others Allergic/Immunocompromised: denies: Difficulty Healing, Frequent Infections, Hives, Itching, others Hematologic/Lymphatic: denies: anemia, blood clots, easy bleeding, easy bruising, swollen glands, others Endocrine: denies: excessive hunger, excessive sweating, excessive thirst, excessive urination, flushing, intolerance to cold, intolerance to heat, unexplained weight gain, unexplained weight loss, others Psychiatric: denies: anxiety, bipolar disorder, depression, hopeless, panic disorder, schizophrenia, sleepless, suicidal, others Physical Exam General Appearance: No Apparent Distress, Normal HEENT: Normal ENT Inspection, Pharynx Normal, TMs Normal Neck: Full Range of Motion, Non-Tender, Normal, Normal Inspection Respiratory: Chest Non-Tender, Lungs Clear, No Accessory Muscle Use, No Respiratory Distress, Normal Breath Sounds Cardiovascular: No Edema, No JVD, No Murmur, No Gallop, Normal Peripheral Pulses, Regular Rate/Rhythm Breast Exam: Deferred Gastrointestinal: No Organomegaly, Non Tender, No Pulsatile Mass, Normal Bowel Sounds, Soft Genitalia: Deferred Pelvic: Deferred Rectal: Deferred Extremities: No calf tenderness, Normal capillary refill, Normal inspection, Normal range of motion, Non-tender, No pedal edema Musculoskeletal : Apperance: Normal Neurologic: Alert, orthodontic treatment coordinator II-XII nml as Tested, No Motor Deficits, Normal Affect, Normal Mood, No Sensory Deficits Cerebellar Function: Normal Reflexes: Normal Skin: Dry, Normal Color, Warm Lymphatic: No Adenopathy EKG EKG : Pulse Rate (adult): 92 Cardiac Rhythm: NSR Was a procedure done? Was a procedure done?: No CP Differential Dx Differential Diagnosis: Angina, Anxiety / Panic Attack Differential Diagnosis: Angina, Chest Wall Pain, Costochondritis, Esophageal reflux/spasm, Gastritis, Myocardial Infarction, Pneumonia X-Ray, Labs, Meds, VS Vital Signs Date Time Temp Pulse Resp B/P (MAP) Pulse Ox O2 Delivery O2 Flow Rate FiO2 02/02/25 23:00 100 18 112/64 (80) 95 02/02/25 20:40 103 18 97 Room Air* 0 21 02/02/25 20:40 98.8 103 18 107/75 (86) 97 98.8 02/02/25 19:50 98.6 98 20 121/66 (84) 97 98.6 02/02/25 19:46 92 Lab Test 02/02/25 21:32 02/02/25 19:54 02/02/25 00:00 Range/Units Troponin I High Sensitivity < 3 L < 3 L </=54 ng/L White Blood Count 7.6 4.4-10.8 10^3/uL Red Blood Count 3.88 L 4.5-5.90 10^6/uL Hemoglobin 10.8 L 13.5-17.5 g/dL Hematocrit 32.7 L 41.0-53.0 % Mean Corpuscular Volume 84.3 80.0-100.0 fL Mean Corpuscular Hemoglobin 27.9 L 28.0-32.0 pg Mean Corpuscular Hemoglobin Concent 33.0 32.0-36.0 g/dL Red Cell Distribution Width 13.5 11.8-14.3 % Platelet Count 197 140-450 10^3/uL Mean Platelet Volume 7.1 6.9-10.8 fL Neutrophils (%) (Auto) 57.4 37.0-80.0 % Lymphocytes (%) (Auto) 31.8 10.0-50.0 % Monocytes (%) (Auto) 6.8 0.0-12.0 % Eosinophils (%) (Auto) 2.8 0.0-7.0 % Basophils (%) (Auto) 1.2 0.0-2.0 % Neutrophils # (Auto) 4.3 1.6-8.6 10 ^3/uL Lymphocytes # (Auto) 2.4 0.4-5.4 10 ^3/uL Monocytes # (Auto) 0.5 0-1.3 10 ^3/uL Eosinophils # (Auto) 0.2 0-0.8 10 ^3/uL Basophils # (Auto) 0.1 0-0.2 10 ^3/uL Nucleated Red Blood Cells 0.7 % Sodium Level 137 136-145 mmol/L Potassium Level 4.3 3.5-5.1 mmol/L Chloride Level 99 98-107 mmol/L Carbon Dioxide Level 30 20-31 mmol/L Anion Gap 8 5-15 Blood Urea Nitrogen 10 9-23 mg/dL Creatinine 0.81 0.700-1.30 mg/dL Glomerular Filtration Rate Calc 121 >90 mL/min BUN/Creatinine Ratio 12.3 10.0-20.0 Serum Glucose 120 H 74-106 mg/dL Calcium Level 10.2 8.7-10.4 mg/dL Urine Color Colorless Yellow Urine Clarity Clear Clear Urine pH 7.0 5.0-9.0 Urine Specific [place] 1.005 1.001-1.035 Urine Protein Negative Negative Urine Ketones Negative Negative Urine Blood Negative Negative /uL Urine Nitrite Negative Negative Urine Bilirubin Negative Negative Urine Urobilinogen Normal Negative mg/dL Urine Leukocyte Esterase Negative Negative /uL Urine RBC 1 0 - 3 /hpf Urine Microscopic WBC < 1 0-3 /HPF Urine Squamous Epithelial Cells None seen <5 /hpf Urine Bacteria Few H None Seen /hpf Urine Glucose Normal Normal mg/dL Current Medications Medications (Trade) Dose Ordered Sig/Dashawn Route Start Time Stop Time Status Last Admin Sodium Chloride 1,000 ml @ 1,000 mls/hr Q1H ONCE IV 02/02/25 19:45 02/02/25 20:44 DC 02/02/25 20:41 Time of 1ST Reevaluation: 19:42 Reevaluation 1ST: Unchanged Patient Education/Counseling: Diagnosis, Treatment Family Education/Counseling: No Family Present Departure 1 Departure Time of Disposition: 23:51 (Patient presented with chest pain that was concerning for possible STEMI, ACS, PE, Pneumonia, Muscle Strain, COPD, Dissection. Data: 1. I ordered and reviewed the result of at least 3 labs including a CBC, BMP, and Troponin. 2. I independently interpreted the following tests: EKG which shows sinus tachycardia and Chest X-ray which shows benign chest _.Risk:This patient has a high risk of morbidity due to further diagnostic testing or treatment and may suffer from an acute cardiac or respiratory disorder. Workup reveals concern for ACS and acute pancreatitis and patient should be admitted for further workup and possible expert consultation. ) Impression: Primary Impression: Acute pancreatitis Qualified Codes: K85.90 - Acute pancreatitis without necrosis or infection, unspecified Additional Impression: Acute chest pain Disposition: ADMITTED INPATIENT Admit to: Med Surg Condition: Serious Critical Care Note Critical Care Time?: Yes (35 min-critical care time only) Critical care comment: Acute chest pains Authorized and Performed by: Isabel Bajwa MD Total critical care time: Approximately 38 minutes Due to a high probability of clinically significant, life threatening deterioration, the patient required my highest level of preparedness to intervene emergently and I personally spent this critical care time directly and personally managing the patient. This critical care time included obtaining a history; examining the patient; pulse oximetry; ordering and review of studies; arranging urgent treatment with development of a management plan; evaluation of patient's response to treatment; frequent reassessment; and, discussions with other providers. This critical care time was performed to assess and manage the high probability of imminent, life-threatening deterioration that could result in multi-organ failure. It was exclusive of separately billable procedures and treating other patients and teaching time. Please see my other sections and the rest of the note for further information on patient assessment and treatment. Stability Stability form required: No Heart Score Heart Score: Heart Score Response (Comments) Value History Slightly Suspicious 0 EKG Normal 0 Age <45 0 Risk Factors No known risk factors 0 Troponin Normal limit 0 Total 0 I personally scribed for ISABEL BAJWA MD ([email or web address]) on 02/02/25 at 19:46. Electronically submitted by Janes Ford ([facility]). ISABEL BAJWA MD Feb 02, 2025 19:46
[2025-02-02 20:06] LABS: Urine Bacteria FEW /hpf (None Seen); Urine Blood Negative /uL (Negative); Urine Clarity Clear (Clear); Urine Color Colorless (Yellow); Urine Protein, UAD Negative (Negative); Urine Specific Gravity 1.005 (1.001-1.035); Urine Squamous Epithelial Cell None Seen /hpf (<5); Urine Urobilinogen Normal (Negative); Urine WBC < 1 /HPF (0-3)
[2025-02-02 20:06] LABS: Basophils # (auto) 0.1 10 ^3/uL (0-0.2); Basophils % (auto) 1.2 % (0.0-2.0); Eosinophils # (auto) 0.2 10 ^3/uL (0-0.8); Eosinophils % (auto) 2.8 % (0.0-7.0); Hematocrit 32.7 % (41.0-53.0); Hemoglobin 10.8 g/dL (13.5-17.5); Lymphocytes # (auto) 2.4 10 ^3/uL (0.4-5.4); Lymphocytes % (auto) 31.8 % (10.0-50.0); Mean Corpuscular Hemoglobin 27.9 pg (28.0-32.0); Mean Corpuscular Volume 84.3 fL (80.0-100.0); Monocytes # (auto) 0.5 10 ^3/uL (0-1.3); Monocytes % (auto) 6.8 % (0.0-12.0); Neutrophils # (auto) 4.3 10 ^3/uL (1.6-8.6); Neutrophils % (auto) 57.4 % (37.0-80.0); Nucleated Red Blood Cells % 0.7 %; Platelet Count (auto) 197 10^3/uL (140-450); Red Blood Cells 3.88 10^6/uL (4.5-5.90); Red Cell Distribution Width 13.5 % (11.8-14.3); White Blood Cell 7.6 10^3/uL (4.4-10.8)
[2025-02-02 20:14] LABS: Chloride 99 mmol/L (98-107); Potassium 4.3 mmol/L (3.5-5.1); Sodium 137 mmol/L (136-145)
[2025-02-02 20:15] LABS: Anion Gap 8 (5-15); Calcium 10.2 mg/dL (8.7-10.4); Carbon Dioxide 30 mmol/L (20-31)
[2025-02-02 20:20] LABS: BUN/Creatinine Ratio 12.3 (10.0-20.0); Blood Urea Nitrogen 10 mg/dL (9-23)
[2025-02-02 20:22] LABS: Glucose 120 mg/dL (74-106)
[2025-02-02 20:40] VITALS: PULSE 103; RESP 18; O2SAT 97
[2025-02-02] MEDS: SODIUM CHLORIDE 0.9% 1,000 ML IV ONE (20:41)
[2025-02-02] MEDS: ONDANSETRON HCL 4 MG/2 ML VIAL IV ONE (20:41)
[2025-02-02] MEDS: MORPHINE SULFATE 4 MG/ML SYR/VIAL IV ONE (20:42)
[2025-02-02] MEDS: IOHEXOL 350 MG/ML 100ML IJ ONE (22:45)
--- NOTE | 2025-02-02 23:13 | DVH ---
Procedure: XY CHEST PORTABLE Exam Date: 02/02/2025 10:49 PM History: chest pain Comparison Study: None Technique: AP of the chest FINDINGS: No focal evidence of airspace disease. There is mild diffuse prominence of the pulmonary vasculature. The cardiomediastinal silhouette is within normal limits. No acute osseous lesions. IMPRESSION: 1. No evidence of acute cardiopulmonary process. 2. Mild nonspecific diffuse prominence of the pulmonary vasculature.
--- NOTE | 2025-02-02 23:40 | DVH ---
CTA Chest with intravenous contrast INDICATION: chest pain, sob, c/f malignancy, COMPARISON: None TECHNIQUE: Multidetector spiral CTA of the chest was performed of the chest with intravenous contrast . PULMONARY ANGIOGRAPHY PROTOCOL was utilized using a bolus-tracking technique centered on the main p ulmonary artery. Axial, coronal and sagittal multiplanar and MIP reformats were performed. Radiation Dose : 1. Chest: CTDI volume is 17.76 mGy. Dose-length product is 678.87 mGy*cm The dose indicators for CT are the volume Computed Tomography (CT) Dose Index (CTDIvol) and the Dose Length Product (DLP), and are measured in units of mGy and mGy-cm, respectively. These indicators are not patient dose, but values generated from the CT scanner acquisition factors. The report includes radiation exposure data for exposures received during this examination. Findings: Pulmonary artery: Pulmonary arteries are normal in caliber without evidence of focal segmental filling defects to sugge st pulmonary emboli. Lower neck: Normal thyroid. Lungs: No focal consolidation, pleural effusion or pneumothorax. Heart/Vascular Structures: Normal heart size. No pericardial effusion. Lymph Nodes: No adenopathy Pleura: No pleural effusion or significant pneumothorax. Musculoskeletal: Diffuse mottled mixed sclerotic and lytic appearance of bone marrow within the visua lized axial and appendicular skeleton. Soft tissues: Normal. Upper abdomen: Limited visualization of the upper abdomen reveals moderately edematous pancreas consi stent with acute non complicated pancreatitis. Remainder of the minimally visualized upper abdomen is grossly unremarkable. IMPRESSION: 1. No pulmonary embolism. 2. No acute thoracic finding. 3. Acute non complicated pancreatitis. 4. Diffuse mottled mixed sclerotic and lytic visualized axial and appendicular osseous structures con cerning for infiltrative bone marrow process. Multiple myeloma is a consideration.
[2025-02-03] VITALS (7 sets, daily range): BP systolic 102–123; BP diastolic 46–68; PULSE 71–101; RESP 15–19; TEMP 98–98.2; O2SAT 93–99
[2025-02-03] MEDS: MORPHINE SULFATE 4 MG/ML SYR/VIAL IV ONE (02:01)
[2025-02-03] MEDS: ONDANSETRON HCL 4 MG/2 ML VIAL IV ONE (02:01)
[2025-02-03] MEDS ORDERED: ONDANSETRON HCL 4 MG/2 ML VIAL IV PRN (07:45)
[2025-02-03] MEDS ORDERED: MORPHINE SULFATE 4 MG/ML SYR/VIAL IV PRN (07:45)
[2025-02-03] MEDS ORDERED: NITROGLYCERIN 0.4 MG SL TAB SL PRN (07:45)
--- NOTE | 2025-02-03 07:48 | DVHHP2 ---
History of Present Illness Reason for Visit: Chest pain History of Present Illness Rodrigo Angelo is a 29-year-old male with past medical history of appendicitis, possible bone cancer with right back bone biopsy in January of this year, and appendectomy who presents to the ED with headache, shortness of breath, chest pain and back pain x1 month. Patient reports that the chest pain radiates from his left to his right upper sternum 8/10 pressure-like and constant. Patient reports that he was recently diagnosed with pancreatitis 9 days ago he was also in the hospital2 weeks ago was given steroid injections and then came back a week ago was admitted for5 days and was discharged. Patient reports that he has an upcoming appointment to get his results from the biopsy that was done recently. Patient states that he takes morphine and Whiteside for his pain. Patient denies any shortness of breath, fever, chills, lightheadedness, weakness, dizziness, recent trauma or injury, abdominal pain, nausea, vomiting, and diarrhea. Past Medical History Appendicitis ? Bone cancer Past Surgical History: Appendectomy, Other (Right back bone biopsy on January 23, 2025) Family History: None Smoke: No ALCOHOL: none Drugs: None Lives: with Family Domestic Violence: Neg Review of Systems Constitutional: Yes: Other (Headache) Respiratory: Shortness of breath Cardiovascular: Chest Pain Musculoskeletal: back pain Allergies: Coded Allergies: NO KNOWN ALLERGIES (Unverified , 05/25/23) Exam Vital Signs Vital Signs Date Time Temp Pulse Resp B/P (MAP) Pulse Ox O2 Delivery O2 Flow Rate FiO2 02/03/25 04:00 81 02/03/25 03:08 17 94 Room Air* 0 21 02/03/25 02:43 115/61 02/03/25 01:00 99.0 99.0 General Appearance: Alert, Oriented X3, Cooperative, No acute distress HEENT: Atraumatic, PERRLA, EOMI, Mucous membr. moist/pink Respiratory: Normal air movement Cardiovascular: Normal S1, Normal S2, No murmurs Abdominal: Soft Extremities: No cyanosis, Normal pulses Skin: No significant lesion Neuro: Normal speech, Normal tone, Sensation intact Psych/Mental Status: Mental status NL, Mood NL Labs/Xrays Labs Test 02/02/25 21:32 02/02/25 19:54 02/02/25 00:00 Range/Units Troponin I High Sensitivity < 3 L </=54 ng/L White Blood Count 7.6 4.4-10.8 10^3/uL Red Blood Count 3.88 L 4.5-5.90 10^6/uL Hemoglobin 10.8 L 13.5-17.5 g/dL Hematocrit 32.7 L 41.0-53.0 % Mean Corpuscular Volume 84.3 80.0-100.0 fL Mean Corpuscular Hemoglobin 27.9 L 28.0-32.0 pg Mean Corpuscular Hemoglobin Concent 33.0 32.0-36.0 g/dL Red Cell Distribution Width 13.5 11.8-14.3 % Platelet Count 197 140-450 10^3/uL Mean Platelet Volume 7.1 6.9-10.8 fL Neutrophils (%) (Auto) 57.4 37.0-80.0 % Lymphocytes (%) (Auto) 31.8 10.0-50.0 % Monocytes (%) (Auto) 6.8 0.0-12.0 % Eosinophils (%) (Auto) 2.8 0.0-7.0 % Basophils (%) (Auto) 1.2 0.0-2.0 % Neutrophils # (Auto) 4.3 1.6-8.6 10 ^3/uL Lymphocytes # (Auto) 2.4 0.4-5.4 10 ^3/uL Monocytes # (Auto) 0.5 0-1.3 10 ^3/uL Eosinophils # (Auto) 0.2 0-0.8 10 ^3/uL Basophils # (Auto) 0.1 0-0.2 10 ^3/uL Nucleated Red Blood Cells 0.7 % Sodium Level 137 136-145 mmol/L Potassium Level 4.3 3.5-5.1 mmol/L Chloride Level 99 98-107 mmol/L Carbon Dioxide Level 30 20-31 mmol/L Anion Gap 8 5-15 Blood Urea Nitrogen 10 9-23 mg/dL Creatinine 0.81 0.700-1.30 mg/dL Glomerular Filtration Rate Calc 121 >90 mL/min BUN/Creatinine Ratio 12.3 10.0-20.0 Serum Glucose 120 H 74-106 mg/dL Calcium Level 10.2 8.7-10.4 mg/dL Lipase 178 H 12-53 U/L Urine Color Colorless Yellow Urine Clarity Clear Clear Urine pH 7.0 5.0-9.0 Urine Specific [place] 1.005 1.001-1.035 Urine Protein Negative Negative Urine Ketones Negative Negative Urine Blood Negative Negative /uL Urine Nitrite Negative Negative Urine Bilirubin Negative Negative Urine Urobilinogen Normal Negative mg/dL Urine Leukocyte Esterase Negative Negative /uL Urine RBC 1 0 - 3 /hpf Urine Microscopic WBC < 1 0-3 /HPF Urine Squamous Epithelial Cells None seen <5 /hpf Urine Bacteria Few H None Seen /hpf Urine Glucose Normal Normal mg/dL CTA Chest with intravenous contrast INDICATION: chest pain, sob, c/f malignancy, COMPARISON: None TECHNIQUE: Multidetector spiral CTA of the chest was performed of the chest with intravenous contrast. PULMONARY ANGIOGRAPHY PROTOCOL was utilized using a bolus- tracking technique centered on the main pulmonary artery. Axial, coronal and sagittal multiplanar and MIP reformats were performed. Radiation Dose : 1. Chest: CTDI volume is 17.76 mGy. Dose-length product is 678.87 mGy*cm The dose indicators for CT are the volume Computed Tomography (CT) Dose Index (CTDIvol) and the Dose Length Product (DLP), and are measured in units of mGy and mGy-cm, respectively. These indicators are not patient dose, but values generated from the CT scanner acquisition factors. The report includes radiation exposure data for exposures received during this examination. Findings: Pulmonary artery: Pulmonary arteries are normal in caliber without evidence of focal segmental filling defects to suggest pulmonary emboli. Lower neck: Normal thyroid. Lungs: No focal consolidation, pleural effusion or pneumothorax. Heart/Vascular Structures: Normal heart size. No pericardial effusion. Lymph Nodes: No adenopathy Pleura: No pleural effusion or significant pneumothorax. Musculoskeletal: Diffuse mottled mixed sclerotic and lytic appearance of bone marrow within the visualized axial and appendicular skeleton. Soft tissues: Normal. Upper abdomen: Limited visualization of the upper abdomen reveals moderately edematous pancreas consistent with acute non complicated pancreatitis. Remainder of the minimally visualized upper abdomen is grossly unremarkable. IMPRESSION: 1. No pulmonary embolism. 2. No acute thoracic finding. 3. Acute non complicated pancreatitis. 4. Diffuse mottled mixed sclerotic and lytic visualized axial and appendicular osseous structures concerning for infiltrative bone marrow process. Multiple myeloma is a consideration. Procedure: XY CHEST PORTABLE Exam Date: 02/02/2025 10:49 PM History: chest pain Comparison Study: None Technique: AP of the chest FINDINGS: No focal evidence of airspace disease. There is mild diffuse prominence of the pulmonary vasculature. The cardiomediastinal silhouette is within normal limits. No acute osseous lesions. IMPRESSION: 1. No evidence of acute cardiopulmonary process. 2. Mild nonspecific diffuse prominence of the pulmonary vasculature. Assessment/Plan Assessment/Plan Assessment Chest pain Intractable back pain Anemia Dyspnea ? Bone cancer Status post biopsy on January 23, 2025 right back ? Multiple myeloma Hyperlipasemia History of appendicitis History of appendectomy Plan Admit to tele Antiemetics Pain management NS 1 L given ED UA noted CT abdomen chest Chest x-ray EKG Troponin negative x2 Mag level Echo Ultrasound abdomen Lumbar spine x-ray ordered Home medications reconciled DVT prophylaxis-not indicated patient ambulating PUD prophylaxis-Protonix Discussed plan of care with patient, patient's spouse, and nurse Plan discussed with: Patient, Spouse My Orders Orders - DON BOOTH DEALER ACCOUNTS INVESTIGATOR Procedure Category Date Status Time Admit ADMIT 02/03/25 Verified 07:43 Code Status CODE 02/03/25 Verified 07:43 Vital Signs OZZY 02/03/25 Verified 07:43 Saddle And Side Wire Stitcher OZZY 02/03/25 Verified 07:43 Cardiac DIET 02/03/25 Verified Diet-2gna,Lofat,Lochol Breakfast Aspirin Tablet PHA 02/03/25 Verified 10:00 Lipitor 40mg Hs PHA 02/03/25 Verified Hi-Intensity 22:00 Morphine Sulfate PHA 02/03/25 Verified Injection 07:45 Acetaminophen Tablet PHA 02/03/25 Verified (Tylenol Tablet) 07:45 Complete Blood Count LAB 02/04/25 Verified 04:00 Basic Metabolic Panel LAB 02/04/25 Verified 04:00 Magnesium LAB 02/04/25 Verified 04:00 Echo 2d Mode Cardiac US 02/03/25 Verified DOP 07:43 Nitroglycerin PHA 02/03/25 Verified Sublingual (Ntrostat 07:45 Ondansetron Hcl PHA 02/03/25 Verified (Zofran) 07:45 Electrocardigram EKG 02/04/25 Verified 04:00 Troponin-I Hs LAB 02/03/25 Verified 07:43 Cardiac OZZY 02/03/25 Verified Rehabilitation - Outpa Nitroglycerin PHA 02/03/25 Verified Sublingual (Ntrostat 07:45 Morphine Sulfate PHA 02/03/25 Verified Injection 07:45 Date of Service: Feb 03, 2025 Billing Provider: DON BOOTH Common Visit Codes: [id number] INP/OBS CARE (HIGH) DON BOOTH Feb 03, 2025 07:47
[2025-02-03] MEDS: ASPirin 81 mg TAB PO SCH (08:53)
[2025-02-03] MEDS: ACETAMINOPHEN 325 MG TAB PO PRN (08:54)
[2025-02-03] MEDS ORDERED: METH-867 PO ×2 (12:07→13:19)
[2025-02-03] MEDS ORDERED: TIZA-142 PO (12:07)
[2025-02-03] MEDS ORDERED: HYDR-4902 PO (13:18)
[2025-02-03] MEDS: HYDROcodone-ACET 5/325MG TAB PO PRN (14:20)
--- NOTE | 2025-02-03 14:49 | DVH ---
INDICATION: r/o pancreatitis TECHNIQUE: Multiple real-time sonographic images of the abdomen were obtained. COMPARISON: US ABDOMEN LIMITED on DOS: 01/21/25 FINDINGS: The liver is homogenous in echogenicity. The liver measures 14cm. No intrahepatic biliary ductal dilatation is noted. The gallbladder wall measures 0.2 cm and is unremarkable. No gallstones or sludge is seen. The commo n duct measures 0.5 cm and is unremarkable. No pericholecystic fluid is noted. The right kidney measures 10cm. No hydronephrosis. The pancreas is not well visualized due to obscuration from bowel gas. The visualized portions of the IVC and aorta are grossly unremarkable. IMPRESSION: Normal exam of the abdomen.
--- NOTE | 2025-02-03 14:51 | DVH ---
INDICATION: back pain COMPARISON: XY LUMBAR SPINE 3 VIEW on DOS: 01/14/25 TECHNIQUE: 3 views of the lumbar spine were obtained. FINDINGS: The lumbar vertebral alignment is normal. The intervertebral disc spaces are well-maintained. No significant facet arthropathy is noted. No acute fracture, vertebral compression deformity or aggressive osseous lesions. The paravertebral soft tissues are grossly unremarkable. IMPRESSION: No acute fracture.
[2025-02-03] MEDS: ATORVASTATIN 20 MG TAB PO SCH (21:16)
[2025-02-03 23:44] LABS: Erythrocyte Sedimentation Rate 41 mm/hr (0-20)
[2025-02-04] VITALS (8 sets, daily range): BP systolic 104–116; BP diastolic 62–66; PULSE 79–97; RESP 16–20; TEMP 97.7–98.3; O2SAT 95–100
[2025-02-04 07:25] LABS: Hematocrit 30.4 % (41.0-53.0); Hemoglobin 10.2 g/dL (13.5-17.5); Mean Corpuscular Hemoglobin 27.9 pg (28.0-32.0); Mean Corpuscular Hgb Conc. 33.6 g/dL (32.0-36.0); Mean Corpuscular Volume 82.9 fL (80.0-100.0); Platelet Count (auto) 165 10^3/uL (140-450); Red Blood Cells 3.67 10^6/uL (4.5-5.90); Red Cell Distribution Width 13.9 % (11.8-14.3); White Blood Cell 5.8 10^3/uL (4.4-10.8)
[2025-02-04 07:31] LABS: Anion Gap 9 (5-15); Carbon Dioxide 30 mmol/L (20-31); Chloride 99 mmol/L (98-107); Potassium 4.2 mmol/L (3.5-5.1); Sodium 138 mmol/L (136-145)
[2025-02-04 07:37] LABS: BUN/Creatinine Ratio 12.2 (10.0-20.0); Blood Urea Nitrogen 10 mg/dL (9-23)
[2025-02-04 07:47] LABS: Glucose 112 mg/dL (74-106)
[2025-02-04 07:48] LABS: Basophils % (manual) 0 (0.0-2.0); Blast Cells 0; Metamyelocytes % 0; Promyelocytes % 0
[2025-02-04] MEDS: NITROGLYCERIN 0.4 MG SL TAB SL PRN (08:32)
[2025-02-04] MEDS: MORPHINE SULFATE INJ 2 MG/ml SYRG IV PRN (08:33)
[2025-02-04 09:01] LABS: Band Neutrophils % (manual) 6; Eosinophils % (manual) 3 (0-7); Lymphocytes % (manual) 33 (10.0-50.0); Monocytes % (manual) 2 (0-12); Myelocytes % 1; Reactive Lymphocytes 1
[2025-02-04 09:02] LABS: Platelet Estimate Adequate; RBC Morphology Normal
[2025-02-04] MEDS: ENSURE CLEAR Apple 8oz Carton PO SCH (12:00)
[2025-02-04] MEDS: DOCUSATE SOD 100 MG CAP PO ONE (12:54)
[2025-02-04] MEDS: HYDROcodone-ACET 10/325MG TAB PO ONE (12:55)
--- NOTE | 2025-02-04 14:49 | DVHPNRES ---
Progress Note Date Seen: Feb 04, 2025 Resident Creating Document: MARILYNN CHRISTOPHER RESIDENT Has the PT tested + for MRSA If YES, has PT been informed?: No Medical Necessity Reason Pt with a Central, PICC or Fol: No Subjective Review of Systems The patient is a 29-year-old male with no significant past medical history who initially presented to the hospital(previous admission) three weeks ago with progressively worsening, stabbing [id number] back pain, associated with unintentional weight loss (~6 lbs) and nausea with eating. At that time, he was found to have epigastric tenderness, and acute pancreatitis was suspected based on clinical findings and lab work. He was treated supportively with fluids and pain control and showed clinical improvement. However, further workup during that admission included a CT scan, which showed increased radiotracer uptake in the thoracolumbar spine, raising concern for possible metastatic bone disease. A bone scan was subsequently performed, revealing increased uptake in the thoracolumbar spine, sternum, and pelvis. Carcinoembryonic antigen (CEA) was found to be elevated, though workup for multiple myeloma was negative. A bone marrow biopsy and CT-guided biopsy of the thoracic spine were performed, and pathology results are currently pending, expected within the next few days. The patient was discharged with planned follow-up with outpatient oncology (Dr. Barcenas) in two weeks. However, he returned to the hospital today with severe, intractable lower back pain and new onset of diffuse, bilateral anterior chest pain after starting [place] (hydrocodone/acetaminophen 5-325 mg) for pain management. He describes the chest pain as muscular, worsened by palpation and movement, non-radiating, and denies shortness of breath, fever, cough, or signs of infection. He denies recent trauma or surgeries. He also reports constipation, with no bowel movement in the past three days, likely related to narcotic use. The patient is alert and oriented but visibly uncomfortable due to pain. Echocardiogram performed during this admission revealed a normal ejection fraction of 55%, with no evidence of pericardial effusion or structural abnormalities. Currently, pain control is being escalated with [place] 10/325 mg. A bowel regimen has been initiated due to narcotic-induced constipation. The team is awaiting final biopsy results to confirm a suspected diagnosis of primary or metastatic bone malignancy. The patient is closely monitored for neurologic changes, bowel/bladder dysfunction, or worsening symptoms . Review of Systems (ROS): Constitutional: Positive for weight loss (6 lbs), no fever or night sweats Musculoskeletal: Positive for severe back and chest pain, worsened by palpation and movement GI: Positive for nausea with food intake, constipation (no BM x3 days); denies vomiting or diarrhea Cardiac: Negative for chest pressure, palpitations, orthopnea Respiratory: Denies shortness of breath, cough, or hemoptysis : Denies dysuria or hematuria; no incontinence Neuro: Denies focal weakness, numbness, or bladder/bowel dysfunction Skin: No rash or skin lesions Psych: No anxiety or depression reported Patient reports: No new complaints Changes from previous H/P or p: No Changes Objective vital signs Vital Sign Date Time Temp Pulse Resp B/P (MAP) Pulse Ox O2 Delivery O2 Flow Rate FiO2 02/04/25 09:32 102/60 02/04/25 09:03 76 18 02/04/25 05:00 98.0 97 98.0 02/03/25 22:55 Room Air* 0 21 Total Intake and Output 02/03/25 02/03/25 02/04/25 15:00 23:00 07:00 Intake Total 300 ml 450 ml Output Total 150 ml Balance 300 ml 300 ml medications Current Medications Medications Dose Ordered Sig/Dashawn Route Start Time Stop Time Status Last Admin Dose Admin Aspirin 81 mg DAILY PO 02/03/25 10:00 02/04/25 09:35 81 MG Atorvastatin Calcium 40 mg HS PO 02/03/25 22:00 02/03/25 21:16 40 MG Acetaminophen 650 mg Q6HP PRN PO 02/03/25 07:45 02/03/25 08:54 650 MG Ondansetron HCl 4 mg Q4HP PRN IV 02/03/25 07:45 Nitroglycerin 0.4 mg Q5MINP PRN SL 02/03/25 07:45 02/04/25 08:32 0.4 MG Morphine Sulfate 2 mg Q30M PRN IV 02/03/25 07:45 02/04/25 08:33 2 MG Enteral Nutritional Formula 240 ml BIDBL PO 02/04/25 12:00 02/04/25 12:00 240 ML Acetaminophen/ Hydrocodone Bitart 1 tab Q4HP PRN PO 02/04/25 11:30 Docusate Sodium 100 mg BID PO 02/04/25 22:00 Examination Physical Exam: General: Young male, alert and oriented, in moderate distress due to pain Vitals: Hemodynamically stable, afebrile HEENT: PERRLA, mucous membranes moist Cardiac: RRR, no murmurs, rubs, or gallops Lungs: Clear to auscultation bilaterally Abdomen: Soft, non-tender, non-distended; decreased bowel sounds Back: Mid-lumbar spine tenderness to palpation; no step-off or deformity Chest wall: Tenderness to palpation over pectoral and intercostal muscles bilaterally; no reproducible pleuritic component Neuro: Grossly intact motor and sensory in all extremities, no saddle anesthesia Extremities: No edema, pulses 2+ bilaterally Skin: No petechiae or bruising noted laboratory and microbiology Laboratory Tests 02/04/25 06:39 Test 02/04/25 06:39 Range/Units Serum Glucose 112 H 74-106 mg/dL Problem List/Assessment/Plan Problem List/Assessment/Plan #Intractable back pain likely due to suspected metastatic bone disease involving thoracolumbar spine admit to [facility] Hydrocodone [place] 10 #Possible metastatic bone malignancy (primary origin pending) based on imaging (bone scan, CT), elevated CEA - biopsy pending #Diffuse muscular chest pain likely musculoskeletal strain - norco 10 #Constipation likely secondary to opioid use ([place]); bowel regimen initiated docusate 100 b.i.d. p.o. # History of acute pancreatitis Resolved # Unintentional weight loss and poor appetite likely secondary to malignancy or chronic pain Ensure, enteral formula b.i.d. Case discussed with Dr. Gray Goals of care discussed with the patient with a 21 minutes Code status: Full code Plan discussed with: Patient My Orders My Orders Orders - MARILYNN CHRISTOPHER RESIDENT Procedure Category Date Status Time Hydrocodone-Acet PHA 02/04/25 In Process 10/325mg Tab ([place] 11:30 Docusate Sodium PHA 02/04/25 In Process Capsule (Colace 22:00 Dietary Evaluation Review Recommendations by RD: Increase Calorie Intake Comments: 1) Initiate Ensure Clear bid 2) Promote optimal PO intake 3) Consider GI consult 4) F/u with oncology/hematology 5) Continue to monitor I&O, labs, and skin integrity Expected Outcomes/Goals: 1) appetite and labs to improve 2) f/u in 3-5 days Date of Service: Feb 04, 2025 Billing Provider: MAN GRAY MD Common Visit Codes: [id number] INP/OBS CARE(HIGH) MARILYNN CHRISTOPHER RESIDENT Feb 04, 2025 14:49 MAN GRAY MD Feb 05, 2025 10:24
--- NOTE | 2025-02-04 15:16 | DVHSR ---
APPROVED REPORT EXAM: Two-dimensional and M-mode echocardiogram with Doppler and color Doppler. Blood Pressure: 116/66 mmHg INDICATION Chest Pain RISK FACTORS Height: 5' 10", Weight: 171 DIMENSIONS LVDd4.9 (3.8-5.7cm)LA (2D)4.0 (1.9-4.0cm)Aortic Root3.4 (2.0-3.7cm) LVDs3.5 (2.5-4.0cm)LA (MM) (1.9-4.0cm)Aortic Cusp Exc1.6 (1.5-2.0cm) EF (%) 55.0 (55-70%)Rt. Atrium3.6 (1.9-4.0cm)Asc. Aorta cm IVSd1.0 (0.7-1.1cm)RV (D) (1.8-2.4cm) PWd0.9 (0.7-1.1cm) Mitral Valve MitralMitral Stenosis E wave1.00m/sMV Mean GR.mmHg A wave0.50m/sMV Peak GR.mmHg E/A ratio2.02D MVAcm2 Aortic Valve Aortic ValveAortic Stenosis V10.80m/Freddie Mean GR.4mmHg V21.30m/Freddie Peak GR.7mmHg LVOT Diameter2.2 (1.8-2.4cm)Doppler AVA2.34cm2 Pulmonic Valve V20.70m/s Conclusion Sinus rhythm. Left atrial enlargement. Mild aortic root enlargement. Valves appear to be structurally normal. Left ventricular systolic performance is normal at 60% with normal RV function. Trace mitral insufficiency. No pericardial effusion masses or vegetations discernible.
[2025-02-04] MEDS: HYDROcodone-ACET 10/325MG TAB PO PRN (20:25)
[2025-02-04] MEDS: DOCUSATE SOD 100 MG CAP PO SCH (21:42)
[2025-02-05 01:00] VITALS: BP 110/65; PULSE 94; RESP 15; TEMP 98; O2SAT 96
[2025-02-05 05:00] VITALS: BP 109/60; PULSE 88; RESP 16; TEMP 97.9; O2SAT 98
[2025-02-05 09:00] VITALS: BP 111/66; PULSE 85; RESP 18; TEMP 97.8; O2SAT 97
[2025-02-05 13:04] VITALS: BP 113/66; PULSE 89; RESP 18; TEMP 97.4; O2SAT 98
--- NOTE | 2025-02-05 13:15 | ECG ---
[facility] Test Date: 2025-02-02 Test Time: 23:54:05 Pat Name: TESHA WASHBURN Department: ER Room: 0298 B Gender: M Recreational Programs Director: : 1995 Requested By: ISABEL MORATAYA Order Number: [id number] Reading MD: Garrison Villa Measurements Intervals [place] Rate: 90 P: 81 MS: 157 QRS: 38 QRSD: 85 T: 32 QT: 327 QTc: 400 Interpretive Statements Sinus rhythm Electronically Signed On 02-08-2025 13:12:15 PDT by Garrison Villa Please click the below link to view image of tracing.
--- NOTE | 2025-02-05 13:29 | ECG ---
[facility] Test Date: 2025-02-02 Test Time: 19:34:23 Pat Name: TESHA WASHBURN Department: TRIAGE Room: 0298 B Gender: M Product Support Engineer: PH : 1995 Requested By: ISABEL MORATAYA Order Number: [id number] Reading MD: Garrison Villa Measurements Intervals [place] Rate: 92 P: 67 GA: 153 QRS: 24 QRSD: 89 T: 50 QT: 334 QTc: 414 Interpretive Statements Sinus rhythm Electronically Signed On 02-08-2025 13:10:05 PDT by Garrison Villa Please click the below link to view image of tracing.
--- NOTE | 2025-02-05 13:38 | ECG ---
[facility] Test Date: 2025-02-02 Test Time: 20:57:05 Pat Name: TESHA WASHBURN Department: ER Room: 0298 B Gender: M Office Machinery Or Equipment Installer: : 1995 Requested By: ISABEL MORATAYA Order Number: [id number] Reading MD: Garrison Villa Measurements Intervals [place] Rate: 90 P: 79 OR: 155 QRS: 52 QRSD: 89 T: 39 QT: 333 QTc: 408 Interpretive Statements Sinus rhythm Electronically Signed On 02-08-2025 13:11:17 PDT by Garrison Villa Please click the below link to view image of tracing.
[2025-02-05] MEDS ORDERED: HYDR-4798 PO (14:30)
[2025-02-05 17:00] VITALS: BP 131/73; PULSE 102; RESP 18; TEMP 97.6; O2SAT 97
--- NOTE | 2025-02-05 18:34 | DVHPNRES ---
Progress Note Date Seen: Feb 05, 2025 Resident Creating Document: MARILYNN CHRISTOPHER RESIDENT Has the PT tested + for MRSA If YES, has PT been informed?: No Medical Necessity Reason Pt with a Central, PICC or Fol: No Subjective Review of Systems Patient examined at bedside, he reports moderate lower back pain, he denies any other acute complaint. Bone marrow biopsy results showed no significant immunophenotypic abnormalities in the analysis requested cytogenetic analysis is currently progress and will be reported separately. Patient bone biopsy still pending. Patient reports: No new complaints Changes from previous H/P or p: No Changes Objective vital signs Vital Sign Date Time Temp Pulse Resp B/P (MAP) Pulse Ox O2 Delivery O2 Flow Rate FiO2 02/05/25 17:00 97.6 102 18 131/73 (92) 97 97.6 02/05/25 08:20 Room Air* 0 21 Total Intake and Output 02/04/25 02/04/25 02/05/25 15:00 23:00 07:00 Intake Total 480 ml 900 ml Balance 480 ml 900 ml medications Current Medications Medications Dose Ordered Sig/Dashawn Route Start Time Stop Time Status Last Admin Dose Admin Aspirin 81 mg DAILY PO 02/03/25 10:00 02/05/25 10:25 81 MG Atorvastatin Calcium 40 mg HS PO 02/03/25 22:00 02/04/25 21:42 40 MG Acetaminophen 650 mg Q6HP PRN PO 02/03/25 07:45 02/03/25 08:54 650 MG Ondansetron HCl 4 mg Q4HP PRN IV 02/03/25 07:45 Nitroglycerin 0.4 mg Q5MINP PRN SL 02/03/25 07:45 02/04/25 08:32 0.4 MG Morphine Sulfate 2 mg Q30M PRN IV 02/03/25 07:45 02/04/25 08:33 2 MG Enteral Nutritional Formula 240 ml BIDBL PO 02/04/25 12:00 02/05/25 08:45 240 ML Acetaminophen/ Hydrocodone Bitart 1 tab Q4HP PRN PO 02/04/25 11:30 02/05/25 15:11 1 TAB Docusate Sodium 100 mg BID PO 02/04/25 22:00 02/05/25 10:25 100 MG Examination: GENERAL:Normal, HEENT:Normal, NECK:Normal, LUNGS:Normal, CVS:Normal, ABDOMEN:Normal, MSK:Abnormal, SKIN:Normal, NEURO:Normal, :Normal laboratory and microbiology Laboratory Tests 02/04/25 06:39 Test 02/04/25 06:39 Range/Units Serum Glucose 112 H 74-106 mg/dL Microbiology Date/Time Source Procedure Growth Status 02/03/25 19:30 Nose MRSA Screen - Final Complete Problem List/Assessment/Plan Problem List/Assessment/Plan #Intractable back pain likely due to suspected metastatic bone disease involving thoracolumbar spine admit to [facility] Hydrocodone [place] 10 #Possible metastatic bone malignancy (primary origin pending) based on imaging (bone scan, CT), elevated CEA - on biopsy pending -bone marrow biopsy, no abnormalities. #Diffuse muscular chest pain likely musculoskeletal strain - norco 10 #Constipation likely secondary to opioid use ([place]); bowel regimen initiated docusate 100 b.i.d. p.o. # History of acute pancreatitis Resolved # Unintentional weight loss and poor appetite likely secondary to malignancy or chronic pain Ensure, enteral formula b.i.d. Case discussed with Dr. Gray Goals of care discussed with the patient with a 21 minutes Code status: Full code Plan discussed with: Patient Dietary Evaluation Review Recommendations by RD: Increase Calorie Intake Comments: 1) Initiate Ensure Clear bid 2) Promote optimal PO intake 3) Consider GI consult 4) F/u with oncology/hematology 5) Continue to monitor I&O, labs, and skin integrity Expected Outcomes/Goals: 1) appetite and labs to improve 2) f/u in 3-5 days Date of Service: Feb 05, 2025 Billing Provider: MAN GRAY MD Common Visit Codes: [id number] INP/OBS CARE(HIGH) MARILYNN CHRISTOPHER RESIDENT Feb 05, 2025 18:34 MAN GRAY MD Feb 06, 2025 14:49
[2025-02-05 21:00] VITALS: BP 112/71; PULSE 84; RESP 16; TEMP 98.1; O2SAT 100
[2025-02-06 01:00] VITALS: BP 112/63; PULSE 80; RESP 15; TEMP 97.7; O2SAT 97
[2025-02-06 05:00] VITALS: BP 112/62; PULSE 90; RESP 16; TEMP 98.1; O2SAT 97
[2025-02-06 09:00] VITALS: BP 106/60; PULSE 81; RESP 18; TEMP 98.4; O2SAT 96
[2025-02-06 13:00] VITALS: BP 121/64; PULSE 99; RESP 20; TEMP 97.9; O2SAT 95
[2025-02-06 17:00] VITALS: BP 108/66; PULSE 79; RESP 16; TEMP 98.3; O2SAT 98
[2025-02-06] MEDS: GADOTERATE MEG 10 MMOL/20ml INJ (0.5MMOL/ml) IV ONE (17:00)
[2025-02-06 17:51] VITALS: BP 102/60; TEMP 36.8
--- NOTE | 2025-02-06 17:54 | DVHDSRES ---
Discharge Summary Date of Admission Resident Creating Document: MARILYNN CHRISTOPHER RESIDENT Feb 03, 2025 at 07:43 Date of Discharge: Feb 06, 2025 Labs/Diagnostic Data: Laboratory Results Test 02/04/25 06:39 02/03/25 21:32 02/03/25 19:54 02/03/25 07:51 White Blood Count 5.8 10^3/uL (4.4-10.8) Red Blood Count 3.67 10^6/uL (4.5-5.90) Hemoglobin 10.2 g/dL (13.5-17.5) Hematocrit 30.4 % (41.0-53.0) Mean Corpuscular Volume 82.9 fL (80.0-100.0) Mean Corpuscular Hemoglobin 27.9 pg (28.0-32.0) Mean Corpuscular Hemoglobin Concent 33.6 g/dL (32.0-36.0) Red Cell Distribution Width 13.9 % (11.8-14.3) Platelet Count 165 10^3/uL (140-450) Mean Platelet Volume 7.3 fL (6.9-10.8) Neutrophils (%) (Auto) % (37.0-80.0) Lymphocytes (%) (Auto) % (10.0-50.0) Monocytes (%) (Auto) % (0.0-12.0) Basophils (%) (Auto) % (0.0-2.0) Neutrophils # (Auto) 10 ^3/uL (1.6-8.6) Lymphocytes # (Auto) 10 ^3/uL (0.4-5.4) Monocytes # (Auto) 10 ^3/uL (0-1.3) Differential Total Cells Counted 100.0 (100) Neutrophils % (Manual) 54 (37.0-80.0) Band Neutrophils % (Manual) 6 Lymphocytes % (Manual) 33 (10.0-50.0) Monocytes % (Manual) 2 (0-12) Eosinophils % (Manual) 3 (0-7) Basophils % (Manual) 0 (0.0-2.0) Metamyelocytes % (manual) 0 Myelocytes % (Manual) 1 Promyelocytes % (Manual) 0 Blast Cells % (Manual) 0 Reactive Lymphocytes 1 Platelet Estimate Adequate Red Blood Cell Morphology Normal Sodium Level 138 mmol/L (136-145) Potassium Level 4.2 mmol/L (3.5-5.1) Chloride Level 99 mmol/L (98-107) Carbon Dioxide Level 30 mmol/L (20-31) Anion Gap 9 (5-15) Blood Urea Nitrogen 10 mg/dL (9-23) Creatinine 0.82 mg/dL (0.700-1.30) Glomerular Filtration Rate Calc 120 mL/min (>90) BUN/Creatinine Ratio 12.2 (10.0-20.0) Serum Glucose 112 mg/dL (74-106) Calcium Level 10.0 mg/dL (8.7-10.4) Magnesium Level 2.0 mg/dL (1.6-2.6) C-Reactive Protein High Sensitivity 2.88 mg/dL (<1.0) Erythrocyte Sedimentation Rate 41 mm/hr (0-20) Lactate Dehydrogenase 304 U/L (120-246) Troponin I High Sensitivity < 3 ng/L (</=54) Test 02/02/25 19:54 02/02/25 00:00 Eosinophils (%) (Auto) 2.8 % (0.0-7.0) Eosinophils # (Auto) 0.2 10 ^3/uL (0-0.8) Basophils # (Auto) 0.1 10 ^3/uL (0-0.2) Nucleated Red Blood Cells 0.7 % Lipase 178 U/L (12-53) Urine Color Colorless (Yellow) Urine Clarity Clear (Clear) Urine pH 7.0 (5.0-9.0) Urine Specific [place] 1.005 (1.001-1.035) Urine Protein Negative (Negative) Urine Ketones Negative (Negative) Urine Blood Negative /uL (Negative) Urine Nitrite Negative (Negative) Urine Bilirubin Negative (Negative) Urine Urobilinogen Normal mg/dL (Negative) Urine Leukocyte Esterase Negative /uL (Negative) Urine RBC 1 /hpf (0 - 3) Urine Microscopic WBC < 1 /HPF (0-3) Urine Squamous Epithelial Cells None seen /hpf (<5) Urine Bacteria Few /hpf (None Seen) Urine Glucose Normal mg/dL (Normal) Other Laboratory Tests 02/04/25 06:39 Brief Hx & Hospital Course: HPI: 29-year-old male patient with no significant past medical history was reviewed hospitalized for worsening stabbing mid lower back pain, weight loss and epigastric tenderness initially thought to be due to acute pancreatitis and previous hospitalization. He returned to the hospital due to persistent lower back pain and new bilateral anterior chest pain after starting [place] for pain management. Hospital course: During the initial hospitalization labs and imaging raise suspicion for bony pathology. A CT scan showed increased radiotracer uptake in thoracolumbar spine and bone scan to confirm findings with the patient for metastatic bone disease. Further imaging and testing included elevated CEA levels . During this admission the patient continued to report severe back pain described as non radiating and muscular anterior chest pain exacerbated by movement and palpation. He denied fever chills cough shortness for breath, trauma, or recent surgeries. He also reported constipation likely due to opiate use, we had no bowel movements over the past 3 days bowel regimen was initiated. He remained alert and oriented though uncomfortable due to pain. Echocardiogram revealed normal ejection fraction 55% with no evidence for pericardial effusion or structural abnormalities. Disposition: Discharged to home Operations or Procedures [place] [id number] Ph: [phone] DIAGNOSTIC IMAGING Diagnostic Imaging Report : [id number] Signed PATIENT: KAMARI HENLEYCCT: [id number] UNIT: [id number] : 1995 LOC: [facility] ROOM / BED: [address] [place] [address] AGE / SEX: 29 / M ADM STATUS: DIS IN SERVICE 1354 ORDERING PHYSICIAN: MARILYNN CHRISTOPHER RESIDENT PROCEDURE(s): MRIABDPW/W - MRI ABD & PLEVIS W/WO CONT REASON: ORDER NUMBER(s): [id number], ACCESSION NUMBER(s): [id number] Procedure: MRI MRI ABD PLEVIS W/WO CONT 02/06/2025 02:19 PM Indication: No history or clinical indication is provided. Comparison Study: CT scan dated 01/21/2025, whole-body bone scan dated 01/23/2025, MRCP dated 01/22/2025 Technique: Multi planar, multi phasic MRI of the abdomen and pelvis was performed prior and after uneventful intravenous administration of contrast. FINDINGS: Lower Chest: Unremarkable. Hepatobiliary: Unremarkable. No discrete hepatic lesion. No cholelithiasis. No intrahepatic or extrahepatic ductal dilatation. Spleen: Borderline enlarged, 12.6 cm in AP. No focal lesion. Pancreas: Thickened pancreatic body and tail with mild alteration of signal and adjacent edema. Trace fluid is seen along the left anterior perirenal fascia. Adrenal Glands: Unremarkable. tract: The kidneys are normal in size bilaterally without hydronephrosis or nephrolithiasis. The urinary bladder is unremarkable. GI tract: The stomach is grossly normal in appearance. No evidence of small bowel obstruction. The large bowel is unremarkable. The appendix is not visualized. No inflammatory change is noted in the right lower quadrant. Lymphatics: No mesenteric, retroperitoneal or periportal lymphadenopathy. Vasculature: The abdominal aorta is normal in in caliber. Pelvic Organs: Prostate is normal in size and homogeneous . Seminal vesicles unremarkable. Moderate free fluid is seen posterior to the bladder. Visualized testicles unremarkable. Bones/soft tissues: Markedly heterogeneously bones in the lumbar spine, pelvic bones, sacrum and bilateral proximal femur with heterogeneous enhancement. No pathologic fracture noted at this time. Multilevel degenerative disc disease noted in the lower lumbar spine. Other: None. IMPRESSION: 1. Markedly heterogeneously bones diffuse osseous pathology concerning for primary or metastatic malignancy. Correlate with bone biopsy results. No pathologic fracture noted. 2. Mildly thickened non edematous pancreatic body and tail and mild peripancreatic edema suggestive of pancreatitis. No discrete solid or cystic lesion is identified. 3. Moderate amount of free fluid in the pelvis. 4. Borderline splenomegaly. ATED BY: MADDI MUHAMMAD MD DICTATED DATE/TIME: 02/07/25 1201 SIGNED BY: MADDI MUHAMMAD MD SIGNED DATE/TIME: 02/07/25 1201 CC: [place] [id number] Ph: [phone] DIAGNOSTIC IMAGING Diagnostic Imaging Report : [id number] Signed PATIENT: KAMARI HENLEYCCT: [id number] UNIT: [id number] : 1995 LOC: [facility] ROOM / BED: [address] [place] [address] / AGE / SEX: 29 / M ADM STATUS: ADM IN SERVICE 1209 ORDERING PHYSICIAN: DON BOOTH MUD ANALYSIS OPERATOR PROCEDURE(s): LUMB2 - LUMBAR SPINE 3 VIEW REASON: back pain ORDER NUMBER(s): [id number], ACCESSION NUMBER(s): [id number] INDICATION: back pain COMPARISON: XY LUMBAR SPINE 3 VIEW on DOS: 01/14/25 TECHNIQUE: 3 views of the lumbar spine were obtained. FINDINGS: The lumbar vertebral alignment is normal. The intervertebral disc spaces are well-maintained. No significant facet arthropathy is noted. No acute fracture, vertebral compression deformity or aggressive osseous lesions. The paravertebral soft tissues are grossly unremarkable. IMPRESSION: No acute fracture. ATED BY: MACIEL LANGSTON MD DICTATED DATE/TIME: 02/03/251447 SIGNED BY: MACIEL LANGSTON MD SIGNED DATE/TIME: 02/03/251447 CC: [place] [id number] Ph: [phone] DIAGNOSTIC IMAGING Diagnostic Imaging Report : [id number] Signed PATIENT: KAMARI HENLEYCCT: [id number] UNIT: [id number] : 1995 LOC: [facility] ROOM / BED: [address] [place] [address] AGE / SEX: 29 / M ADM STATUS: ADM IN SERVICE 1134 ORDERING PHYSICIAN: DON BOOTH PROCEDURE(s): ABDL - ABDOMEN LIMITED REASON: r/o pancreatitis ORDER NUMBER(s): [id number], ACCESSION NUMBER(s): [id number] INDICATION: r/o pancreatitis TECHNIQUE: Multiple real-time sonographic images of the abdomen were obtained. COMPARISON: US ABDOMEN LIMITED on DOS: 01/21/25 FINDINGS: The liver is homogenous in echogenicity. The liver measures 14cm. No intrahepatic biliary ductal dilatation is noted. The gallbladder wall measures 0.2 cm and is unremarkable. No gallstones or sludge is seen. The common duct measures 0.5 cm and is unremarkable. No pericholecystic fluid is noted. The right kidney measures 10cm. No hydronephrosis. The pancreas is not well visualized due to obscuration from bowel gas. The visualized portions of the IVC and aorta are grossly unremarkable. IMPRESSION: Normal exam of the abdomen. ATED BY: MAICEL LANGSTON MD DICTATED DATE/TIME: 02/03/251445 SIGNED BY: MACIEL LANGSTON MD SIGNED DATE/TIME: 02/03/251445 CC: [place] [id number] Ph: [phone] DIAGNOSTIC IMAGING Diagnostic Imaging Report : [id number] Signed PATIENT: KAMARI HENLEYCCT: [id number] UNIT: [id number] : 1995 LOC: ER ROOM / BED: / AGE / SEX: 29 / M ADM STATUS: REG ER SERVICE 40 ORDERING PHYSICIAN: ISABEL MORATAYA MD PROCEDURE(s): CTACH - CT ANGIO CHEST CONTRAST REASON: chest pain, sob, c/f malignancy, ORDER NUMBER(s): [id number], ACCESSION NUMBER(s): [id number] CTA Chest with intravenous contrast INDICATION: chest pain, sob, c/f malignancy, COMPARISON: None TECHNIQUE: Multidetector spiral CTA of the chest was performed of the chest with intravenous contrast. PULMONARY ANGIOGRAPHY PROTOCOL was utilized using a bolus- tracking technique centered on the main pulmonary artery. Axial, coronal and sagittal multiplanar and MIP reformats were performed. Radiation Dose : 1. Chest: CTDI volume is 17.76 mGy. Dose-length product is 678.87 mGy*cm The dose indicators for CT are the volume Computed Tomography (CT) Dose Index (CTDIvol) and the Dose Length Product (DLP), and are measured in units of mGy and mGy-cm, respectively. These indicators are not patient dose, but values generated from the CT scanner acquisition factors. The report includes radiation exposure data for exposures received during this examination. Findings: Pulmonary artery: Pulmonary arteries are normal in caliber without evidence of focal segmental filling defects to suggest pulmonary emboli. Lower neck: Normal thyroid. Lungs: No focal consolidation, pleural effusion or pneumothorax. Heart/Vascular Structures: Normal heart size. No pericardial effusion. Lymph Nodes: No adenopathy Pleura: No pleural effusion or significant pneumothorax. Musculoskeletal: Diffuse mottled mixed sclerotic and lytic appearance of bone marrow within the visualized axial and appendicular skeleton. Soft tissues: Normal. Upper abdomen: Limited visualization of the upper abdomen reveals moderately edematous pancreas consistent with acute non complicated pancreatitis. Remainder of the minimally visualized upper abdomen is grossly unremarkable. IMPRESSION: 1. No pulmonary embolism. 2. No acute thoracic finding. 3. Acute non complicated pancreatitis. 4. Diffuse mottled mixed sclerotic and lytic visualized axial and appendicular osseous structures concerning for infiltrative bone marrow process. Multiple myeloma is a consideration. ATED BY: SHAUN GARCIA MD DICTATED DATE/TIME: 02/02/252336 SIGNED BY: SHAUN GARCIA MD SIGNED DATE/TIME: 02/02/252336 CC: [place] [id number] Ph: [phone] DIAGNOSTIC IMAGING Diagnostic Imaging Report : [id number] Signed PATIENT: KAMARI HENLEYCCT: [id number] UNIT: [id number] : 1995 LOC: ER ROOM / BED: / AGE / SEX: 29 / M ADM STATUS: REG ER SERVICE 31 ORDERING PHYSICIAN: ISABEL MORATAYA MD PROCEDURE(s): CXRP - CHEST PORTABLE REASON: chest pain ORDER NUMBER(s): [id number], ACCESSION NUMBER(s): [id number] Procedure: XY CHEST PORTABLE Exam Date: 02/02/2025 10:49 PM History: chest pain Comparison Study: None Technique: AP of the chest FINDINGS: No focal evidence of airspace disease. There is mild diffuse prominence of the pulmonary vasculature. The cardiomediastinal silhouette is within normal limits. No acute osseous lesions. IMPRESSION: 1. No evidence of acute cardiopulmonary process. 2. Mild nonspecific diffuse prominence of the pulmonary vasculature. ATED BY: SHAUN GARCIA MD DICTATED DATE/TIME: 02/02/252309 SIGNED BY: SHAUN GARCIA MD SIGNED DATE/TIME: 02/02/252309 CC: Condition at Discharge: Fair Final Diagnosis/Problems List #Intractable back pain likely due to suspected metastatic bone disease involving thoracolumbar spine #Possible metastatic bone malignancy (primary origin pending) based on imaging (bone scan, CT) #Diffuse muscular chest pain likely musculoskeletal strain #Constipation likely secondary to opioid use ([place] # History of acute pancreatitis # Unintentional weight loss and poor appetite likely secondary to malignancy or chronic pain Discharge Disposition: Home SNF Discharge Will this Physician continue t: No Discharge Instruct/Medications Diet: Regular Activity: No Restrictions, As Tolerated Follow Up/Referral: follow up with pcp within 2 weeks Medications: script to pharmacy Discharge Statement: "Patient was advised to return to the ER or call 911 if any headaches, dizziness, shortness of breath, chest pain, abdominal pain, bleeding, fevers, or worsening of medical condition. Patient was counseled about treatment plan, medications, possible side effects, patientverbalized understanding. All questions were answered to the best of my ability. This discharge took greater then 30 minutes in planning, reviewing documentation, counseling the patient, and discussing with other team members." ASSESSMENT ASSESSMENT Assessment severe back pain likely due to bone metastasis Date of Service: Feb 06, 2025 Billing Provider: MAN GRAY MD Common Visit Codes: 15005-BGT/OBS DISCH DAY >30min MARILYNN CHRISTOPHER RESIDENT Feb 06, 2025 17:54 MAN GRAY MD Feb 09, 2025 11:15
--- NOTE | 2025-02-07 12:03 | DVH ---
Procedure: MRI MRI ABD PLEVIS W/WO CONT 02/06/2025 02:19 PM Indication: No history or clinical indication is provided. Comparison Study: CT scan dated 01/21/2025, whole-body bone scan dated 01/23/2025, MRCP dated 2024 Technique: Multi planar, multi phasic MRI of the abdomen and pelvis was performed prior and after une ventful intravenous administration of contrast. FINDINGS: Lower Chest: Unremarkable. Hepatobiliary: Unremarkable. No discrete hepatic lesion. No cholelithiasis. No intrahepatic or extrah epatic ductal dilatation. Spleen: Borderline enlarged, 12.6 cm in AP. No focal lesion. Pancreas: Thickened pancreatic body and tail with mild alteration of signal and adjacent edema. Trac e fluid is seen along the left anterior perirenal fascia. Adrenal Glands: Unremarkable. tract: The kidneys are normal in size bilaterally without hydronephrosis or nephrolithiasis. The u rinary bladder is unremarkable. GI tract: The stomach is grossly normal in appearance. No evidence of small bowel obstruction. The l arge bowel is unremarkable. The appendix is not visualized. No inflammatory change is noted in the r ight lower quadrant. Lymphatics: No mesenteric, retroperitoneal or periportal lymphadenopathy. Vasculature: The abdominal aorta is normal in in caliber. Pelvic Organs: Prostate is normal in size and homogeneous . Seminal vesicles unremarkable. Moderate free fluid is seen posterior to the bladder. Visualized testicles unremarkable. Bones/soft tissues: Markedly heterogeneously bones in the lumbar spine, pelvic bones, sacrum and bila teral proximal femur with heterogeneous enhancement. No pathologic fracture noted at this time. Mult ilevel degenerative disc disease noted in the lower lumbar spine. Other: None. IMPRESSION: 1. Markedly heterogeneously bones diffuse osseous pathology concerning for primary or metastatic william gnancy. Correlate with bone biopsy results. No pathologic fracture noted. 2. Mildly thickened non edematous pancreatic body and tail and mild peripancreatic edema suggestive o f pancreatitis. No discrete solid or cystic lesion is identified. 3. Moderate amount of free fluid in the pelvis. 4. Borderline splenomegaly.
[2025-02-12 05:07] LABS: Albumin 3.1 g/dL (2.9-4.4); Alpha-1-Globulin 0.4 g/dL (0.0-0.4); Alpha-2-Globulin 1.1 g/dL (0.4-1.0); Gamma Globulin 1.2 g/dL (0.4-1.8); Protein Total Serum 7.1 g/dL (6.0-8.5)
== END 2025-02-06 18:20 | disposition home or self-care (01) | DRG 343 ==
LOC: ER 19:27 → OVERFLOW 02-03 07:43 → TELE-WESTW 02-03 22:55 → WEST WING 02-04 16:23
PROVIDERS: ADMIT Student in an Organized Health Care Education/Training Program; ATTEND Student in an Organized Health Care Education/Training Program
DX: C79.51 Secondary malignant neoplasm of bone (principal); K85.90 Acute pancreatitis without necrosis or infection, unspecified; D64.9 Anemia, unspecified; K59.03 Drug induced constipation; T40.2X5A Adverse effect of other opioids, initial encounter; G89.29 Other chronic pain; Z68.23 Body mass index [BMI] 23.0-23.9, adult; R63.4 Abnormal weight loss; Z79.891 Long term (current) use of opiate analgesic; Z79.899 Other long term (current) drug therapy; Z87.19 Personal history of other diseases of the digestive system; Y92.89 Other specified places as the place of occurrence of the external cause; Z90.49 Acquired absence of other specified parts of digestive tract
CPT/HCPCS: 36415; 71045; 71275; 72100; 72195; 74181; 76705; 80048; 81001; 83615; 83690; 83735; 84155; 84165; 84484; 85007; 85025; 85027; 85652; 86141; 87081; 93005; 93306; 96361; 96374; 96375; 99291; G0378; J2405